=== PATIENT | male | born 1945 | race Caucasian/White ===

== ENCOUNTER 2024-08-20 12:52 | Outpatient (CLI) | payer MEDICARE, SELFPAY ==
--- NOTE | 2024-08-20 13:00 | CRLHL7_ITS ---
For Patients: As a result of the Cures Act, medical imaging exams and procedure reports are released immediately into your electronic medical record. You may view this report before your referring provider. If you have questions, please contact your health care provider. INDICATION: Altered bowel habits TECHNIQUE: Abdomen Pelvis radiograph 4 views COMPARISON: None FINDINGS: The sensitivity and specificity of the exam are moderately limited by the patient`s body habitus. Bowel: The bowel gas pattern is normal without evidence of bowel obstruction. Mild gaseous distention of the transverse colon is seen. Soft tissue: No evidence of pneumoperitoneum present. Moderate vascular calcifications are noted. There is a calcified granuloma in the left lung base. Bone: Unremarkable for age. IMPRESSION: 1. Unremarkable appearance of the visualized abdomen. Dictated by Christiano Darnell MD @ 08/20/2024 1:30:14 PM Dictated by: Christiano Darnell MD @ 08/20/2024 13:30:19 (Electronically Signed)
== END 2024-08-20 12:53 | disposition home or self-care (01) ==
LOC: RAD 13:00
PROVIDERS: Visit Provider Student in an Organized Health Care Education/Training Program
DX: R19.4 Change in bowel habit (principal)
CPT/HCPCS: 74019

== ENCOUNTER 2025-01-12 16:40 | Inpatient (IN) | payer MEDICARE, SELFPAY ==
[2025-01-12] VITALS (99 sets, daily range): BP systolic 68–136; BP diastolic 42–98; PULSE 65–144; RESP 6–36; TEMP 36.1–38.1; O2SAT 81–98; BMI 29.0; BMI 29.8
--- NOTE | 2025-01-12 16:44 | ED_ITS ---
HPI - Fever General Time Seen by Provider: 16:44 Date Seen: 01/12/25 Chief Complaint: Fever Stated Complaint: 100.5 fever, illness Time Seen by Provider: 01/12/25 16:43 Source: patient, family, RN notes reviewed and old records reviewed Mode of arrival: ambulatory Limitations: no limitations History of Present Illness HPI Narrative: 79-year-old male with history of rheumatoid arthritis on immune modulator, chronic prednisone, presents today feeling ill. History from patient and his spouse. Patient has had increased weakness and fatigue for the last couple of d ays, not wanting to get out of bed. Chills. Little bit of cough starting last night, did vomit once. Some nausea. Denies chest pain, does note some abdominal pain. Denies urinary symptoms, lower extremity swelling. No known ill contacts. Has not taken anything for symptoms today. Related Data Home Medications ?Medication ?Instructions ?Recorded ?Confirmed duloxetine 20 mg capsule,delayed 20 mg PO BID 01/12/25 01/12/25 release ezetimibe 10 mg tablet 10 mg PO DAILY 01/12/25 01/12/25 famotidine 20 mg tablet 20 mg PO BID 01/12/25 01/12/25 gabapentin 600 mg tablet 600 - 1,200 mg PO Q12H 01/12/25 01/12/25 leflunomide 20 mg tablet 20 mg PO DAILY 01/12/25 01/12/25 lidocaine-prilocaine 2.5 %-2.5 % 1 applic topical TID PRN 01/12/25 01/12/25 topical cream losartan 25 mg tablet 25 mg PO DAILY 01/12/25 01/12/25 metoprolol succinate 50 mg 25 mg PO DAILY 01/12/25 01/12/25 tablet,extended release 24 hr pantoprazole 40 mg tablet,delayed 40 mg PO DAILY 01/12/25 01/12/25 release prednisone 20 mg tablet 20 mg PO DAILY 01/12/25 01/12/25 prednisone 5 mg tablet 5 mg PO DAILY 01/12/25 01/12/25 ramelteon 8 mg tablet 8 mg PO QPM 01/12/25 01/12/25 rosuvastatin 20 mg tablet 20 mg PO QPM 01/12/25 01/12/25 tofacitinib 11 mg tablet,extended 11 mg PO DAILY 01/12/25 01/12/25 release 24 hr (Xeljanz XR) Allergies Allergy/AdvReac Type Severity Reaction Status Date / Time ampicillin Allergy Unknown Verified 01/12/25 18:55 bee venom protein (honey bee) Allergy Unknown Verified 01/12/25 18:55 PFSH PFS Medical History (Updated 01/13/25 @ 22:55 by Juan J Ramirez MD) Total bilirubin, elevated ?R17 - Unspecified jaundice (ICD-10) Peripheral neuropathy ?G62.9 - Polyneuropathy, unspecified (ICD-10) Lumbar radiculopathy ?M54.16 - Radiculopathy, lumbar region (ICD-10) Chronic pain ?G89.29 - Other chronic pain (ICD-10) Stage 3 chronic kidney disease ?N18.30 - Chronic kidney disease, stage 3 unspecified (ICD-10) Non-STEMI (non-ST elevated myocardial infarction) ?I21.4 - Non-ST elevation (NSTEMI) myocardial infarction (ICD-10) Hypertension ?I10 - Essential (primary) hypertension (ICD-10) Hyperlipidemia ?E78.5 - Hyperlipidemia, unspecified (ICD-10) Rheumatoid arthritis ?M06.9 - Rheumatoid arthritis, unspecified (ICD-10) Surgical History (Updated 01/12/25 @ 23:55 by Scot Dumont MD) History of hernia repair ?Z98.890 - Other specified postprocedural states (ICD-10) ?Z87.19 - Personal history of other diseases of the digestive system (ICD-10) History of arthrodesis ?Z98.1 - Arthrodesis status (ICD-10) History of bunionectomy ?Z98.890 - Other specified postprocedural states (ICD-10) Family History (Updated 01/12/25 @ 23:56 by Scot Dumont MD) Brother Heart disease High blood pressure Father Heart disease High blood pressure Social History (Updated 01/12/25 @ 23:56 by Scot Dumont MD) Narrative: [place] history of smoking more than 50 years ago. He does not drink alcohol having quit a couple years ago. Code status is DNR. What is your current living situation?: I presently have a place to live Problems where you live: no known problems Problems where you live details: NA In the past 12 months, utilities in danger of being shut off: no In past 12 months, lack of transportation kept you from medical appts, meetings, work, or getting things needed for daily living: no In the past 12 mos, have been you worried that your food would run out before you had money to buy more?: never true In the past 12 mos, the food you bought just didn't last and you didn't have money to buy more?: never true Highest level of school completed/degree received: high school graduate Smoking Status: Never smoker How often do you have a drink containing alcohol: never AUDIT-C Alcohol total score: 0 Non-prescribed substance use: denies use How often does anyone, including family, friends and others, physically hurt you : never How often does anyone, including family, friends and others, insult or talk down to you: never How often does anyone, including family, friends and others, threaten you with harm: never How often does anyone, including family, friends and others, scream or curse at you: never service: No Exam Narrative Exam Narrative: General: Well-developed and well-nourished, appears ill Head: Atraumatic and normocephalic Eyes: Pupils are equal reactive, extraocular motions intact, conjunctiva clear ENT: External nose and ears are normal, posterior pharynx without erythema or exudate Neck: No midline cervical tenderness, full spontaneous range of motion the neck, trachea midline, no adenopathy Heart: Regular rate and rhythm no murmurs or thrills Lungs: Tachypneic with crackles in the left base Abdomen: Soft, nontender, nondistended with active bowel sounds Musculoskeletal: No tenderness, deformity, or edema Neurologic: Awake, alert, and oriented x3, no gross focal neurologic deficits, cranial nerves intact as tested Psych: Mood and affect are appropriate Skin: No rashes Const Vital Signs, click to edit/add: Vital Signs - 24 hr 01/12/25 22:57 Blood Pressure 125/98 H Course Course ED Course: Reviewed most recent rheumatology visit from October 2024 which was follow-up for medication management, at that time on Xeljanz, prednisone, and leflunomide, creatinine in at that time 1.87 and no medication changes at that time. Most recent labs from January 05 with a white blood cell count 5.5, creatinine 1.61. Patient seen and examined, presents today with weakness and fatigue along with slight cough, nausea. Denies shortness of breath to me although spouse says that he was complaining of some shortness of breath earlier. On exam here, patient is febrile, hypotensive, oxygen saturation 82-86% on room air in oxygen was started. He is little bit tachypneic, mentating appropriately, crackles in the left lung, no abdominal tenderness. Labs and chest x-ray ordered along with IV fluid bolus given initial hypotension although this improved without intervention on arrival to the room. Anticipate admission, likely pneumonia in patient with immune suppression for medications Reevaluation(s) Time of Reevaluation #1: 17:13 Reevaluation #1: Labs ordered and independently interpreted by me with white blood cell count 13.7, left shift, lactate 2.4. Chest x-ray independently interpreted by me demonstrates bilateral infiltrates. Due to concern for sepsis with likely p ulmonary source, broad-spectrum antibiotics will be initiated with cefepime and vancomycin. Troponin was performed independently by nursing staff and was 2.1. This likely represents cardiac strain and hypoperfusion from sepsis, no EKG changes and no chest pain. This will be repeated. Would not initiate heparin at this time, patient is hypotensive and so would not initiate nitroglycerin. Time of Reevaluation #2: 17:40 Reevaluation #2: Updated patient on findings and plan, patient now complains of some left calf pain. Mild tenderness on exam, ultrasound is ordered. Also the patient is RSV positive, however clinically he is more ill be expected with RSV, COVID influenza negative. Time of Reevaluation #3: 18:20 Reevaluation #3: Went to check on patient, noted now to have a heart rate 140 appears regular monitor bed EKG ordered. Tylenol ordered and will recheck temperature as well. 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 EKG performed at 6:24 p.m. shows sinus tachycardia with first-degree AV block rate 128, diffuse ST changes, no acute elevations, QTC 455, GA 248. Compared to prior of earlier today, rate is increased and diffuse ST changes are now present. Additional Reevaluation(s): 18:58 CT PE study independently interpreted me without evidence of acute pulmonary embolism, pulmonary infiltrates consistent with prior diagnosis pneumonia. 19:23 patient recheck, continued tachycardia but patient is becoming more hypotensive with pressures 80s/40s. Patient is still mentating appropriately, we discussed diagnosis and plan. Patient is midway through 2 L fluids, additional IV fluids ordered to get his 30 milligram/kilogram sepsis bolus and will plan to initiate pressors. 19:40 Contacted [facility] for transfer, updated patient with findings and plan. 19:48 Updated spouse with findings and plan, confirmed code status of DNR/DNI with her. 20:13 Spoke with [facility] network intern, recommend stress dose steroids and adding an atypical pneumonia coverage, observe for couple hours, and if able to wean pressors, plan for admission to [facility]. If still on pressors, patient can be transferred to [facility]. 21:53 patient heart rate now in the 60s, repeat EKG done which shows normal sinus rhythm. Given abrupt change in heart rate, I did review prior EKG and rhythm strips which do appear to mostly shows sinus tachycardia but then ques tion of atrial fibrillation as well. Patient remains on pressors, these will be discontinued and the patient heart rate is improved to see if he is able to maintain pressures. EKG independently interpreted by me performed at 9:54 p.m. demonstrates sinus rhythm rate 67, no acute ST elevations or depressions, normal intervals, normal axis, QTC 454, GA 162, compared to prior of earlier today, no acute changes. 22:35 patient remains normotensive and in sinus rhythm, spoke with Dr. Dumont who agrees to admit patient to [facility]. Vital Signs Vital signs: Initial Vital Signs Temperature 100.6 F H 01/12/25 16:45 Temperature Source Axillary 01/12/25 16:45 Pulse Rate 81 01/12/25 16:45 Respiratory Rate 32 H 01/12/25 16:45 Blood Pressure 80/46 L 01/12/25 16:45 Blood Pressure Mean 57 L 01/12/25 16:45 Blood Pressure Position Sitting 01/12/25 16:45 Pulse Oximetry 86 L 01/12/25 16:45 Oxygen Delivery Method Room Air 01/12/25 16:45 Vital Signs Temperature 100.6 F H 01/12/25 16:45 Pulse Rate 81 01/12/25 16:45 Respiratory Rate 32 H 01/12/25 16:45 Blood Pressure 80/46 L 01/12/25 16:45 Pulse Oximetry 86 L 01/12/25 16:45 Oxygen Delivery Method Room Air 01/12/25 16:45 Temperature 98.1 F 01/13/25 22:39 Pulse Rate 86 01/13/25 22:39 Respiratory Rate 20 01/13/25 22:39 Blood Pressure 173/101 H 01/13/25 22:39 Pulse Oximetry 95 01/13/25 22:39 Oxygen Delivery Method Room Air 01/13/25 22:39 Oxygen Flow Rate 1 01/13/25 04:51 Medications Administered Medications: Generic Name Dose Route Start Last Admin Trade Name Freq PRN Reason Stop Dose Admin Acetaminophen 650 mg 01/12/25 23:09 01/13/25 19:52 Acetaminophen 325 Mg Tablet PO 650 mg Q4H PRN Administration Aspirin 81 mg 01/13/25 09:00 01/13/25 08:44 Aspirin 81 Mg Tab.Chew PO 81 mg DAILY ARLETTE Administration Azithromycin 500 mg 01/12/25 23:15 01/13/25 22:45 Azithromycin 250 Mg Tablet PO 500 mg Q24H ARLETTE Administration Duloxetine HCl 20 mg 01/13/25 09:00 01/13/25 20:59 Duloxetine Hcl [address] PO 20 mg BID ARLETTE Administration Ezetimibe 10 mg 01/13/25 09:00 01/13/25 08:44 Ezetimibe 10 Mg Tablet PO 10 mg DAILY ARLETTE Administration Enoxaparin Sodium 100 mg 01/13/25 11:45 01/13/25 22:46 Enoxaparin 100 Mg/Ml Inj SUBCUT 100 mg Q12H ARLETTE Administration Famotidine 20 mg 01/13/25 09:00 01/13/25 20:59 Famotidine 20 Mg Tablet PO 20 mg BID ARLETTE Administration Gabapentin 600 mg 01/13/25 09:00 01/13/25 20:59 Gabapentin 600 Mg Tablet PO 600 mg BID ARLETTE Administration Hydrocortisone Sodium Succinate 50 mg 01/12/25 20:15 01/13/25 19:53 Hydrocortisone Sod Succinate 50 Mg/Ml Inj IVP 50 mg Q6H ARLETTE Administration Ceftriaxone Sodium 2 gm/ 100 mls @ 200 mls/hr 01/13/25 01:00 01/13/25 02:59 Sodium Chloride IVPB Infused Q24H ARLETTE Infusion Melatonin 3 mg 01/12/25 23:09 01/13/25 20:59 Melatonin 3 Mg Tablet PO 3 mg HS PRN Administration Ramelteon 8 Mg 8 mg 01/13/25 21:00 01/13/25 21:00 Tablet PO Not Given HS ARLETTE Omeprazole 40 mg 01/13/25 09:00 01/13/25 08:44 [address]epraz[address] PO 40 mg DAILY ARLETTE Administration Oxycodone HCl 5 mg 01/13/25 16:52 01/13/25 20:59 Oxycodone 5 Mg Tablet PO 5 mg Q4H PRN Administration foot pain Rosuvastatin Calcium 20 mg 01/13/25 18:00 01/13/25 18:25 Rosuvastatin Calcium 10 Mg Tablet PO 20 mg QPM ARLETTE Administration Sodium Chloride 5 ml 01/13/25 09:00 01/13/25 19:56 Sodium Chloride 0.9 % (Flush) 10 Ml Syringe IVF 5 ml BID ARLETTE Administration Discontinued Medications Generic Name Dose Route Start Last Admin Trade Name Freq PRN Reason Stop Dose Admin Acetaminophen 1,000 mg 01/12/25 18:20 01/12/25 18:33 Acetaminophen 500 Mg Tablet PO 01/12/25 18:21 1,000 mg ONCE ONE Administration Aspirin 162 mg 01/12/25 23:55 01/13/25 00:07 Aspirin 81 Mg Tab.Chew PO 01/12/25 23:56 162 mg ONCE ONE Administration Sodium Chloride 1,000 mls @ 6,000 mls/hr 01/12/25 16:51 01/12/25 18:12 0.9 % Sodium Chloride 1000 Ml IV 01/12/25 17:00 Infused .Q10M ARLETTE Infusion Vancomycin/PEG/NADA/Lysine/Water 2 gm in 400 mls @ 200 mls/hr 01/12/25 17:30 01/12/25 21:22 Vancomycin 2 Gm/400 Ml IVPB 01/12/25 19:29 Infused ONCE ONE Infusion Protocol Cefepime HCl 1 gm/ Sodium 100 mls @ 200 mls/hr 01/12/25 17:33 01/12/25 18:41 Chloride IVPB 01/12/25 17:34 Infused ONCE ONE Infusion Sodium Chloride 1,000 mls @ 1,000 mls/hr 01/12/25 19:14 01/12/25 20:05 0.9 % Sodium Chloride 1000 Ml IV 01/12/25 20:13 Infused .Q1H ARLETTE Infusion Sodium Chloride 500 mls @ 1,000 mls/hr 01/12/25 19:25 01/12/25 20:26 0.9 % Sodium Chloride 500 Ml IV 01/12/25 19:54 Infused .Q30M ARLETTE Infusion Norepinephrine/Dextrose 4,000 mcg in 250 mls @ 36.401 mls/hr 01/12/25 19:30 01/12/25 21:53 Norepinephrine Infusion IV 0 mcg/kg/min CONT ARLETTE 0 mls/hr Titration Protocol 0.1 MCG/KG/MIN Sodium Chloride 1,000 mls @ 125 mls/hr 01/12/25 21:36 01/12/25 21:43 0.9 % Sodium Chloride 1000 Ml IV 125 mls/hr .Q8H ARLETTE Administration Magnesium Sulfate 2 gm in 50 mls @ 25 mls/hr 01/12/25 23:16 01/13/25 02:59 Magnesium Iv IVPB 01/13/25 01:15 Infused ONCE ONE Infusion Lactated Ringer's 1,000 mls @ 125 mls/hr 01/12/25 23:40 01/13/25 00:08 Lactated Ringers 1000 Ml IV 01/13/25 07:39 125 mls/hr .Q8H ARLETTE Administration MDM - Fever Lab Data Labs: Lab Results 01/12/25 01/12/25 01/12/25 Range/Units 16:50 16:55 17:15 WBC 13.73 H (4.50-11.00) K/uL RBC 4.22 L (4.30-5.90) m/uL Hgb 13.6 (13.5-17.5) gm/dL Hct 40.8 (37.0-53.0) % MCV 97 (80-100) fL MCH 32 (26-34) pg MCHC 33 (32-36) gm/dL RDW Coeff of Earnest 13.5 (11.5-15.5) % Plt Count 282 (140-440) K/uL Neut % (Auto) 83.4 H (42.0-72.0) % Lymph % (Auto) 9.0 L (20-44) % [place] % (Auto) 6.8 (0.0-11.0) % Eos % (Auto) 0.1 (0.0-7.0) % Baso % (Auto) 0.4 (0.0-3.0) % Neut # (Auto) 11.50 H (1.7-7.0) K/uL Lymph # (Auto) 1.20 (0.90-2.90) K/uL [place] # (Auto) 0.90 (0.00-0.90) K/UL Eos # (Auto) 0.00 (0.00-0.50) K/uL Baso # (Auto) 0.10 (0.00-0.30) K/uL Abs Immat Gran (auto) 0.00 (0.00-0.30) K/uL Imm/Tot Granulo (auto) 0.3 % Sodium 129 L (135-149) mmol/L Potassium 3.8 (3.6-5.1) mmol/L Chloride 95 L (96-114) mmol/L Carbon Dioxide 24 (20-32) mmol/L Anion Gap 10 (7-15) mEq/L BUN 20 (7-30) mg/dL Creatinine 1.5 (0.5-1.5) mg/dL Estimated Creat Clear 42.39 Estimated GFR 46 ml/min Glucose 106 (60-115) mg/dL Lactate 2.4 H (0.5-1.9) mmol/L Calcium 9.0 (8.4-10.6) mg/dL Magnesium 1.5 (1.5-2.6) mg/dL Total Bilirubin 1.8 H (0.1-1.5) mg/dL Direct Bilirubin 0.5 (0.0-0.5) mg/dL AST 58 H (12-35) U/L ALT 35 (4-50) U/L Alkaline Phosphatase 44 (40-150) U/L Troponin I 2.86 H* (0.01-0.04) ng/mL Total Protein 7.3 (6.0-8.3) g/dL Albumin 4.5 (3.3-5.0) g/dL Procalcitonin 14.40 H (<0.50) ng/mL SARS-CoV-2 (PCR) Negative SARS-CoV-2 (Negative) Influenza Type A (PCR) Negative PCR FLU A (Negative) Influenza Type B (PCR) Negative PCR FLU B (Negative) RSV (PCR) POSITIVE PCR RSV A (Negative) POC Troponin I 2.10 H (0.01-0.04) ng/ml 01/12/25 01/12/25 Range/Units 19:00 19:11 WBC (4.50-11.00) K/uL RBC (4.30-5.90) m/uL Hgb (13.5-17.5) gm/dL Hct (37.0-53.0) % MCV (80-100) fL MCH (26-34) pg MCHC (32-36) gm/dL RDW Coeff of Earnest (11.5-15.5) % Plt Count (140-440) K/uL Neut % (Auto) (42.0-72.0) % Lymph % (Auto) (20-44) % [place] % (Auto) (0.0-11.0) % Eos % (Auto) (0.0-7.0) % Baso % (Auto) (0.0-3.0) % Neut # (Auto) (1.7-7.0) K/uL Lymph # (Auto) (0.90-2.90) K/uL [place] # (Auto) (0.00-0.90) K/UL Eos # (Auto) (0.00-0.50) K/uL Baso # (Auto) (0.00-0.30) K/uL Abs Immat Gran (auto) (0.00-0.30) K/uL Imm/Tot Granulo (auto) % Sodium (135-149) mmol/L Potassium (3.6-5.1) mmol/L Chloride (96-114) mmol/L Carbon Dioxide (20-32) mmol/L Anion Gap (7-15) mEq/L BUN (7-30) mg/dL Creatinine (0.5-1.5) mg/dL Estimated Creat Clear Estimated GFR ml/min Glucose (60-115) mg/dL Lactate 2.0 H (0.5-1.9) mmol/L Calcium (8.4-10.6) mg/dL Magnesium (1.5-2.6) mg/dL Total Bilirubin (0.1-1.5) mg/dL Direct Bilirubin (0.0-0.5) mg/dL AST (12-35) U/L ALT (4-50) U/L Alkaline Phosphatase (40-150) U/L Troponin I 2.60 H* (0.01-0.04) ng/mL Total Protein (6.0-8.3) g/dL Albumin (3.3-5.0) g/dL Procalcitonin (<0.50) ng/mL SARS-CoV-2 (PCR) (Negative) Influenza Type A (PCR) (Negative) Influenza Type B (PCR) (Negative) RSV (PCR) (Negative) POC Troponin I 1.93 H (0.01-0.04) ng/ml Critical Care Time Critical Care Time Critical Care Time: Yes Attestation: The patient required my highest level preparedness to intervene emergently and I personally spent this critical care time directly and personally managing the patient. This critical care time included: Obtaining a history; Examining the patient; Pulse oximetry; Ordering and reviewing of studies; Arranging urgent treatment with development of a management plan; Evaluation of patients response to treatment; Frequent reassessment discussions with other providers. This critical care time was performed to assess and manage the high probability of imminent life-threatening deterioration that could result in multiorgan failure. It was exclusive of separate billable procedures and treating other patients and teaching time. Total Critical Care Time in Minutes: 150 Discharge Plan Discharge Clinical Impression: Long-term use of immunosuppressant medication, Sepsis, Elevated troponin, Community acquired pneumonia, Acute hypoxemic respiratory failure, Paroxysmal atrial fibrillation with rapid ventricular response Patient Disposition: [facility]
--- OUTSIDE RECORDS SUMMARY | 2025-01-12 16:47 | XMS_ITS | Clinical Summary ---
[facility] Organization [facility] Address [address], [place] [address] Care Team Providers Care Trucking Supervisor Name Role Phone Mariano Kaur DC Primary Care Provider [phone] Source Comments You are receiving this document as you are listed as the primary care provider,follow-up provider, or the patient has been referred to you for consultation.This is in compliance with the Medicare and[facility] Cent[facility]aid EHR Incentive Program,which states Providers who transition their patient to another setting of careor provider of care or refers their patient to another provider of care shouldprovide summary care record for each transition of care or referral. 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 Patient has been taking a 1/2 tab daily 6 Active pantoprazole (PROTONIX) 20 MG tablet Take 20 mg by mouth two times a day. 7 Active traMADol (ULTRAM) 50 MG tablet Take 50 mg by mouth as needed. Active benzonatate (TESSALON) 100 MG capsule Take 100 mg by mouth as needed. Active lidocaine (ASPERCREME W/LIDOCAINE) 4 % cream Apply topically once. Active ezetimibe (ZETIA) 10 MG tablet Take 10 mg by mouth daily. Active hydrOXYzine pamoate (VISTARIL) 25 MG capsuleIndicatio ns:Chronic pain in left foot Take 1-2 Capsules by mouth 4 times daily as needed. 30 Capsule 1 9 Active oxyCODONE (ROXICODONE) 5 MG immediate release tabletIndication s:Chronic pain in left foot Take 1-2 Tablets by mouth every 4 hours as needed for Pain. 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 Next refill due in February 2020. 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 MAY BE TAKEN WITH OR WITHOUT FOOD. SWALLOW TABLET WHOLE. DO NOT CRUSH, SPLIT OR CHEW. STORE AT ROOM TEM 90 Tablet 1 9 Active diclofenac (VOLTAREN) 1 % gel APPLY TOPICALLY TO AFFECTED AREAS UP TO 4 TIMES DAILY. 100 g 1 9 Active leflunomide (ARAVA) 20 MG tablet Take 1 Tablet by mouth daily. 90 Tablet 1 0 Active zolpidem (AMBIEN) 10 MG tabletIndication s:Insomnia, unspecified type TAKE ONE TABLET BY MOUTH AT BEDTIME NEEDED FOR SLEEP 30 Tablet 0 Active Active Problems Patient Care Coordination No te Formatting of this note migh t be different from the original. [facility] Care Management [facility] Disease and Case Management: Gino Toussaint identified due to RA. Working with patient towards understanding of disease progression and nutrition. My role is to be available to provide in-between visit support, reinforcement of the plan of care, additional education and resources, and assistance navigating health plan benefits. Lia Santana RN 09/14/2022, 2:33 PM Problem Noted Date Diagnosed Date Controlled substance agreement signed 06/12/2018 Overview (06/12/2018): Diagnosis: OA and RA Medication: percocet Controlled Substance Agreement reviewed and signed: yes Date agreement signed: 06/12/2018 Refill plan: 90 tablets for a one year supply Clinician: Angelina Olson MD Chronic pain in left foot 04/28/2018 Needs flu shot 07/05/2017 Chronic cough 04/04/2017 Insomnia 11/29/2016 Primary osteoarthritis involving multiple joints 10/06/2016 Dysthymia 09/29/2016 High risk medication use 09/29/2016 Avascular necrosis 09/29/2016 Rheumatoid arthritis involvi ng both feet with negative rheumatoid factor 09/27/2016 Resolved Problems Problem Noted Date Diagnosed Date Resolved Date URI (upper respiratory infection) 11/16/2016 05/17/2017 Immunizations Immunization Administration Dates Next Due Influenza IIV3 (Trivalent) F alex Spicer, 65+ Yrs (30157) 07/05/2017 Social History Tobacco Use Types Packs/Day Years Used Date Smoking Tobacco: Former Cigarettes Smokeless Tobacco: Never Alcohol Use Standard Drinks/Week Comments No 0 (1 standard drink = 0.6 oz pur e alcohol) Sex and Gender Information Value Date Recorded Sex Assigned at Not on file Legal Sex Male 5:31 AM CDT Gender Identity Not on file Sexual Orientation Not on file Last Filed Vital Signs Vital Sign Reading Time Taken Comments Blood Pressure 128/66 03/10/2019 10:39 AM CDT Pulse 56 03/10/2019 10:39 AM CDT Temperature 36.4 C (97.5 F) 11/07/2018 12:35 PM LEGAL NURSE CONSULTANT Respiratory Rate 16 11/07/2018 12:35 PM LEGAL NURSE CONSULTANT Oxygen Saturation 95% 11/07/2018 12:35 PM LEGAL NURSE CONSULTANT Inhaled Oxygen Concentration - - Weight 108.9 kg (240 lb) 01/12/2021 3:20 PM CDT Height 182.9 cm (6') 01/12/2021 3:20 PM CDT Body Mass Index 32.55 01/12/2021 3:20 PM CDT Plan of Treatment Health Maintenance Due Date Last Done Comments RSV Vaccine (1 - 1-dose 75+ series) 2018 COVID-19 Vaccine (4 - 2023- season) 2024 05/15/2021, 11/25/2020, 11/04/2020 Influenza Vaccine (#1) 2024 , 07/08/2020, 07/06/2019, Additional history exists Medicare Annual Wellness Visit 09/16/2024 DTaP/Tdap/Td Vaccine (4 - Tdap) 10/22/2029 10/22/2019, 09/16/2009, 01/25/2009 HepA Vaccine Aged Out 08/10/2013, 01/14, 01/26/2013 No longer eligible based on patient's age to complete this topic Pneumococcal Vaccine 50+ Yrs Completed , 06/13/2010, 09/16/2009 Zoster/Shingles Vaccine Completed 06/07/20, 03/06/2019, 09/16/2010, Additional history exists HepB Vaccine Aged Out No longer eligi ble based on patient's age to complete this topic Hib Vaccine Aged Out No longer eligi ble based on patient's age to complete this topic IPV (Polio) Vaccine Aged Out No longe r eligible based on patient's age to complete this topic MCV4 Vaccine Aged Out No longer eligi ble based on patient's age to complete this topic Meningococcal B Vaccine Aged Out No l onger eligible based on patient's age to complete this topic Medical Devices Implanted Type Area Supervisor Data Processing Device Identifier Shelf Expiration Date Model / Serial / Lot Scr [employer] [facility] 2.0x14 - [id number] Implanted:Qty: 2 on 11/07/2018 [facility]: [employer] [id number] / 0 / 0 Insurance MEDICARE ADVANTAGE MEDICARE ADVANTAGE Care Teams Trucking Supervisor Relationship Specialty Start Date End Date Mariano Kaur DC [address] [place] [address] PCP - General Chiropractic 08/07/16
--- OUTSIDE RECORDS SUMMARY | 2025-01-12 16:47 | XMS_ITS | Clinical Summary ---
Author Organization [facility] Address [address] [address] Phone Care Team Providers Care Cardiac Care Unit Nurse Name Role Phone Unavailable Primary Care Provider Unavailabl e Allergies Active Allergy Reactions Criticality Noted Date Comments Gramineae Pollens Anaphylaxis High 04/24/2023 Bent grass pollen Amoxicillin Nausea Only Low 04/24/2023 And vomiting Bee Venom Swelling Medium 04/24/2023 Medications albuterol HFA (Proair HFA, Ventolin HFA) 108 (90 Base) MCG/ACT inhalation aerosol Inhale 2 Puffs into the lungs every six hours as needed. 2 Active Cetirizine HCl 10 MG capsule Take 10 mg by mouth one time a day. Active diclofenac (Voltaren) 1 % Gel Apply 1 g topically one time a day. 9 Active DULoxetine (Cymbalta) 20 MG delayed release capsule Take 20 mg by mouth two times a day. 9 Active ezetimibe (Zetia) 10 MG tablet Take 1 Tablet by mouth one time a day. 2 Active gabapentin (Neurontin) 600 MG tablet Take 600 mg by mouth three times a day. 9 Active leflunomide (Arava) 20 MG tablet Take 20 mg by mouth one time a day. 0 Active Melatonin 10 MG Tablet Take 10 mg by mouth at bedtime. Active metoprolol succinate (Toprol-XL) 50 MG 24 hour extended-relea se tablet Take 50 mg by mouth one time a day. 2 Active pantoprazole (Protonix) 40 MG delayed-releas e tablet Take 40 mg by mouth two times a day. 2 Active rosuvastatin (Crestor) 20 MG tablet Take 20 mg by mouth at bedtime. 2 Active Tofacitinib Citrate ER (Xeljanz XR) 11 MG Tablet Extended Release 24 Hour Take 1 Tablet by mouth one time a day. 9 Active losartan (Cozaar) 50 MG tablet Take 50 mg by mouth one time a day. Active aspirin EC 81 MG tablet Take 1 Tablet by mouth one time a day. 3 Active senna-docusate (Senokot-S) 8.6-50 MG oral tablet Take 2 Tablets by mouth two times a day. 30 Tablet 1 3 Active oxyCODONE-acet aminophen (Percocet) 5-325 MG oral tablet Take 1-2 Tablets by mouth every four hours as needed for Pain. Limit acetaminophen to 4000 mg per day from all sources. 40 Tablet 3 Active Active Problems Problem Noted Date Diagnosed Date Cervical radiculopathy 04/30/2023 CAD (coronary artery disease) 04/30/2023 CKD (chronic kidney disease) stage 3, GFR 30-59 ml/min 03/13/2019 04/30/2023 Immunosuppressed status 09/25/2018 04/30/20 23 RA (rheumatoid arthritis) 06/03/20152022 Hypertension goal BP (blood pressure) < 140/90 0 12/18/2012 04/30/2023 Hyperlipidemia LDL goal <130 02/27/2012 Surgical History Surgery Date Site/Laterality Comments ANKLE SURGERY Right APPENDECTOMY ANKLE ARTHROSCOPY/SURGERY Left CORRECT BUNION,METATARSAL OSTEOTOMY CARDIAC CATHETERIZATION CARDIAC CATHETERIZATION UPPER GASTROINTESTINAL ENDOSCOPY UMBILICAL HERNIA REPAIR CORRECT BUNION,METATARSAL OSTEOTOMY LAMINOPLASTY 04/30/2023 Left Procedure: Left cervical seven to thoracic one foraminotomy with intra-op nerve monitoring; Surgeon: Chin Valdez MD; Location: [facility] OR Medical History Medical History Date Comments Non-ST elevation (NSTEMI) my ocardial infarction (HCC) Flash pulmonary edema (HCC) Hypoxia Altered gait Hypertensive emergency Ulnar neuropathy of left upper extremity CKD (chronic kidney disease) stage 3, GFR 30-59 ml/min (HCC) Immunosuppressed status (HCC) Other chronic pain LLQ abdominal pain Controlled substance agreement signed OA (osteoarthritis) Melanotic stools Chronic cough Insomnia Dysthymic disorder Peripheral polyneuropathy Inflammatory arthritis rheumatoi d arthritis-per patient Pain, chronic Family History Medical History Relation Comments Cardiovascular Disease Father Cancer Mother Relation Status Comments Father Mother Social History Tobacco Use Types Packs/Day Years Used Date Smoking Tobacco: Never Smokeless Tobacco: Never Tobacco Cessation:Counseling Given: Not Answered Alcohol Use Standard Drinks/Week Comments Not Currently 0 (1 standard drink = 0.6 oz pur e alcohol) IP Custom IPV Answer Date Recorded Do you feel UNSAFE in any of your personal relationships with your family members or any other acquaintances? No 2022 Sex and Gender Information Value Date Recorded Sex Assigned at Not on file Legal Sex Male 1:21 PM CDT Gender Identity Not on file Sexual Orientation Not on file Obstetrics History Last Filed Vital Signs Vital Sign Reading Time Taken Comments Blood Pressure 126/55 05/01/2023 9:26 AM CDT Pulse 58 05/01/2023 9:26 AM CDT Temperature 36.7 C (98.1 F) 05/01/2023 9:26 AM CDT Respiratory Rate 16 05/01/2023 9:26 AM CDT Oxygen Saturation 92% 05/01/2023 9:26 AM CDT Inhaled Oxygen Concentration - - Weight 105.6 kg (232 lb 12.9 oz) 04/30/2023 8:33 AM CDT Height 184.2 cm (6' 0.5) 04/24/2023 1:39 PM CDT Body Mass Index 31.14 04/24/2023 1:39 PM CDT Plan of Treatment Health Maintenance Due Date Last Done Comments COVID-19 Vaccine (#1) 1950 PERTUSSIS (Standing Order) 1962 Pneumococcal Vaccine: 50+ yr s (Standing Order) (1 of 2 - PCV) 1962 Shingrix (Zoster recombinant ) vaccine (Standing Order) (1 of 2) 1962 TETANUS (Standing Order) 1962 RSV Vaccination (60+ yrs) (Abrysvo/Arexvy) (1 - 1-dose 75+ series) 2018 Influenza Vaccine Seasonal (Standing Order) (#1) 2024 HPV Vaccine (Standing Order) Aged Out No longer eligible based on patient's age to complete this topic Hepatitis B Vaccine (Standin g Order) Aged Out No longer eligible b ased on patient's age to complete this topic Insurance [employer] MEDICARE ADVANTAGE Advance Directives For more information, please contact: [phone] * Full Code (Latest Code Status on File) Date Activated Date Inactivated Comments 04/30/2023 7:53 AM 05/01/2023 3:51 PM
--- OUTSIDE RECORDS SUMMARY | 2025-01-12 16:47 | XMS_ITS | Clinical Summary ---
Author Organization [facility] Address [address] [place] [id number] Care Team Providers Care Relationship Specialist Name Role Phone Mariano Abdi Primary Care Provider Apryl vailable Allergies Active Allergy Reactions Criticality Noted Date Comments Amoxicillin-Pot Clavulanate Nausea And Vomiting 10/07/2018 Venom-Honey Bee Edema 10/07/2018 Medications Cetirizine (ZYRTEC) 10 mg cap Take 10 mg by mouth once daily if needed. Active gabapentin (NEURONTIN) 600 mg tablet Take 600 mg by mouth 3 times daily. Active leflunomide (ARAVA) 20 mg tablet Take 20 mg by mouth once daily. Active losartan (COZAAR) 50 mg tablet Take 50 mg by mouth once daily. Active pantoprazole (PROTONIX) 20 mg tablet Take 20 mg by mouth 2 times daily before meals. Active tofacitinib (XELJANZ XR) 11 mg Tb24 Take 11 mg by mouth before bedtime. Active zolpidem (AMBIEN) 5 mg tablet Take 5 mg by mouth at bedtime if needed for Sleep. Active benzonatate (TESSALON PERLES) 100 mg capsule Take 100 mg by mouth 3 times daily if needed for Cough. Active ezetimibe/simva statin (VYTORIN 10-40 ORAL) Take by mouth. Active Social History Tobacco Use Types Packs/Day Years Used Date Smoking Tobacco: Former Cigarettes Q uit: 09/16/1984 Smokeless Tobacco: Never Alcohol Use Standard Drinks/Week Comments No 0 (1 standard drink = 0.6 oz pur e alcohol) Sex and Gender Information Value Date Recorded Sex Assigned at Not on file Legal Sex Male 5:24 AM GOVERNMENT EMPLOYEE Gender Identity Not on file Sexual Orientation Not on file Obstetrics History Last Filed Vital Signs Vital Sign Reading Time Taken Comments Blood Pressure 116/71 04/01/2019 9:25 AM CDT Pulse 46 04/01/2019 9:40 AM CDT Temperature 36.4 C (97.6 F) 04/01/2019 8:55 AM CDT Simultaneous filing. User may not have seen previous data. Respiratory Rate 16 04/01/2019 9:25 AM CDT Oxygen Saturation 100% 04/01/2019 9:4 0 AM CDT Inhaled Oxygen Concentration - - Weight 102.7 kg (226 lb 5 oz) 10/07/2018 1:23 PM GOVERNMENT EMPLOYEE Height 182.9 cm (6') 10/07/2018 1:23 PM GOVERNMENT EMPLOYEE Body Mass Index 30.69 10/07/2018 1:23 PM GOVERNMENT EMPLOYEE Plan of Treatment Health Maintenance Due Date Last Done Comments Tdap 1954 Depression screening for age 12+ 1955 BMI (ht and wt on same day) for age 18+ 1961 Tetanus booster 1963 Pneumococcal series for age 50+ (1 of 1 - PCV) 1993 Zoster (shingles) series for age 50+ (1 of 2) 1993 RSV vaccine for adults or (1 - 1-dose 75+ series) 2018 COVID-19 vaccine series ( season) 2024 07/02/2023, 01/23/2022, 05/15/2021, Additional history exists Influenza Vaccine (Season Ended) 2025 Insurance MEDICARE PART B HB ONLY MEDICARE PART A HB ONLY REHAN RODRIGUEZ [id number] Advance Directives * Full Code (Latest Code Status on File) Date Activated Date Inactivated Comments 04/01/2019 6:58 AM 04/01/2019 11:56 AM * Full Code Date Activated Date Inactivated Comments 10/08/2018 8:06 AM 10/08/2018 1:36 PM Care Teams Relationship Specialist Relationship Specialty Start Date End Date Mariano Abdi PCP - General Family Practice 10/03/18
--- NOTE | 2025-01-12 16:51 | CRLHL7_ITS ---
For Patients: As a result of the Cures Act, medical imaging exams and procedure reports are released immediately into your electronic medical record. You may view this report before your referring provider. If you have questions, please contact your health care provider. INDICATION: Fever, hypoxia TECHNIQUE: Chest radiograph 1 view COMPARISON: None FINDINGS: The sensitivity and specificity of the exam are severely limited by the patient`s body habitus. Mediastinum: The mediastinum is normal in appearance. The heart silhouette is normal in size and morphology. Lung: Mild patchy airspace opacities are present in the left midlung zone and both lung bases. No sign of pleural effusion seen. No pneumothorax is identified. Bone and Soft tissue: Unremarkable for age. IMPRESSION: 1. Mild patchy airspace opacities are present in the left midlung zone and both lung bases. These findings can be seen with atelectasis and/or pneumonia. Dictated by Christiano Darnell MD @ 01/12/2025 5:41:20 PM Dictated by: Christiano Darnell MD @ 01/12/2025 17:41:22 (Electronically Signed)
[2025-01-12 17:07] LABS: Lactate* 2.4 mmol/L (0.5-1.9)
[2025-01-12 17:08] LABS: Basophils Percent Auto 0.4 % (0.0-3.0); Eosinophils Percent Auto 0.1 % (0.0-7.0); Hematocrit 40.8 % (37.0-53.0); Hemoglobin* 13.6 gm/dL (13.5-17.5); Immature Granulocytes Pct Auto 0.3 %; Mean Corpuscular HGB Conc 33 gm/dL (32-36); Mean Corpuscular Hemoglobin 32 pg (26-34); Mean Corpuscular Volume 97 fL (80-100); Monocytes Percent Auto 6.8 % (0.0-11.0); Neutrophils Percent Auto 83.4 % (42.0-72.0); Platelet Count* 282 K/uL (140-440); RDW Coefficient of Variation % 13.5 % (11.5-15.5); Red Blood Count 4.22 m/uL (4.30-5.90); White Blood Count* 13.73 K/uL (4.50-11.00)
[2025-01-12 17:12] LABS: Slide Review Reflex No
[2025-01-12] MEDS: 0.9 % SODIUM CHLORIDE 1000 ml 1,000 ML 6000 ML IV (17:27)
[2025-01-12 17:28] LABS: Albumin* 4.5 g/dL (3.3-5.0); Chloride* 95 mmol/L (96-114); Potassium* 3.8 mmol/L (3.6-5.1); Sodium* 129 mmol/L (135-149)
[2025-01-12 17:31] LABS: Alanine Aminotransferase* 35 U/L (4-50); Alkaline Phosphatase* 44 U/L (40-150); Anion Gap 10 mEq/L (7-15); Aspartate Amino Transferase* 58 U/L (12-35); Bilirubin Direct* 0.5 mg/dL (0.0-0.5); Bilirubin Total* 1.8 mg/dL (0.1-1.5); Blood Urea Nitrogen* 20 mg/dL (7-30); Carbon Dioxide* 24 mmol/L (20-32); Creatinine* 1.5 mg/dL (0.5-1.5); Est. Creatinine Clearance* 42.39; Estimated Glomerular Filt Rate 46 ml/min; Glucose* 106 mg/dL (60-115); Total Protein* 7.3 g/dL (6.0-8.3)
[2025-01-12 17:32] LABS: Magnesium* 1.5 mg/dL (1.5-2.6)
[2025-01-12 17:39] LABS: PCR FLU A Negative PCR FLU A (Negative); PCR FLU B Negative PCR FLU B (Negative); PCR RSV POSITIVE PCR RSV (Negative); SARS PCR* Negative SARS-CoV-2 (Negative)
--- NOTE | 2025-01-12 17:41 | CRLHL7_ITS ---
For Patients: As a result of the Century Cures Act, medical imaging exams and procedure reports are released immediately into your electronic medical record. You may view this report before your referring provider. If you have questions, please contact your health care provider. INDICATION: Leg pain and swelling. TECHNIQUE: Ultrasound venous duplex lower left extremity. Compression venous exam was performed using summers-scale, color Doppler, and spectral Doppler analysis. COMPARISON: None. FINDINGS: Deep veins: Sonographic imaging demonstrates the left common femoral, deep femoral, superficial femoral, popliteal, posterior tibial and the contralateral right common femoral veins to be fully compressible with normal color Doppler blood flow. Superficial veins: Greater saphenous vein is fully compressible. Left popliteal fossa complex cystic lesion 4.1 x 0.3 x 2.0 centimeters. IMPRESSION: No DVT in the left lower extremity. Left popliteal fossa cyst. Dictated by Moni Purcell MD @ 01/12/2025 6:58:06 PM (Electronically Signed)
--- OUTSIDE RECORDS SUMMARY | 2025-01-12 18:01 | XMS_ITS | Encounter Summary ---
Author Organization [facility] Address [address] [place] [address] Care Team Providers Care Detective Bureau Chief Name Role Phone Lois Cox RESIDENT ADVISOR LINEN MANAGER Primary Care Provider + Lois Cox APRN [facility] Unavailable [phone] Dillon Barksdale MD Unavailable Unavailable Farhan Hinojosa MD Unavailable Dar Brady MD Unavailable Unava ilable Braxton Tonya E RESIDENT ADVISOR [facility] Unavailable [phone] Lia Amaya [facility] Unavailable [phone] Lia Amaya [facility] Unavailable [phone] Chalo Gillespie MD Unavailable Lyle Leung MD Unavailable Encounter Details Date Type Department Care Team (Late st Contact Info) Description 11/30/2020 Documentation Only INTERFACED REPORT Unknown, Provider Social History Tobacco Use Types Packs/Day Years Used Date Smoking Tobacco: Former Cigarettes 0.5 10 0 09/16/1974 - 09/16/1984 Smokeless Tobacco: Never Alcohol Use Standard Drinks/Week Comments Yes 0 (1 standard drink = 0.6 oz pur e alcohol) occasionally Social Connection and Isolation Panel [NHANES] A nswer Date Recorded Frequency of Communication with Friends and Fami ly Not on file 09/02/2024 How often do you get together with friends or re latives? Once a week 09/02/2024 Attends Anabaptist Services Not on file 09/02 Active Member of Clubs or Organizations Not on f ile 09/02/2024 Attends Club or Organization Meetings Not on pascale e 09/02/2024 Marital Status Not on file 09/02/2024 PHQ-2 Answer Date Recorded PHQ-2 Score 0 09/02/2024 [facility] - Occupational Stress Questionnaire Answer Date Recorded Do you feel stress - tense, restless, nervous, or anxious, or unable to sleep at night because your mind is troubled all the time - these days? Not at all 09/02/2024 Exercise Vital Sign Answer Date Recorde d On average, how many days pe r week do you engage in moderate to strenuous exercise (like a brisk walk)? 5 days 09/02/2024 On average, how many minutes do you engage in exercise at this level? 150+ min 09/02/2024 Adolescent Education Answer Date Record ed Getting School Help Needed Not on file 06/07 Food Insecurity Answer Date Recorded Within the past 12 months, d id you worry that your food would run out before you got money to buy more? No 09/02/2024 Within the past 12 months, d id the food you bought just not last and you didn t have money to get more? No 09/02/2024 Housing Stability Answer Date Recorded Do you have housing? (Annamaria burgess is defined as stable permanent housing and does not include staying outside in a car, in a tent, in an abandoned building, in an overnight mcfp, or couch-surfing.) Yes 09/02/2024 Are you worried about losing your housing? No 09/02/2024 Financial Resource Strain Answer Date R ecorded Within the past 12 months, h ave you or your family members you live with been unable to get utilities (heat, electricity) when it was really needed? No 09/02/2024 Transportation Needs Answer Date Record ed Within the past 12 months, h as lack of transportation kept you from medical appointments, getting your medicines, non-medical meetings or appointments, work, or from getting things that you need? No 09/02/2024 Interpersonal Safety Answer Date Record ed Do you feel physically and e motionally safe where you currently live? Yes 09/02/2024 Within the past 12 months, h ave you been hit, slapped, kicked or otherwise physically hurt by someone? No 09/02/2024 Within the past 12 months, h ave you been humiliated or emotionally abused in other ways by your partner or ex-partner? No 09/02/2024 Sex and Gender Information Value Date Recorded Sex Assigned at Male 10/16/2023 11:10 AM SYSTEM VALIDATION ENGINEER Legal Sex Male 3:09 AM SYSTEM VALIDATION ENGINEER Gender Identity Male 11/16/2020 12:30 PM SYSTEM VALIDATION ENGINEER Sexual Orientation Straight 11/16/2020 12 :30 PM SYSTEM VALIDATION ENGINEER COVID-19 Exposure Response Date Recorded In the last 10 days, have yo u been in contact with someone who was confirmed or suspected to have Coronavirus/COVID-19? No / Unsure 06/17/2023 10:27 AM CDT documented as of this encounter Plan of Treatment Upcoming Encounters Date Type Department Care Team (Late st Contact Info) Description 07/06/2025 10:30 AM CDT Lab [facility] Laboratory [address] [place] [phone] 07/13/2025 11:00 AM CDT Office Visit [address] [address] Lois Cox APRN LINEN MANAGER [address] [place] [address] Lyle Leung MD [address] [place], [place] [address] documented as of this encounter Visit Diagnoses Not on filedocumented in this encounter Additional Health Concerns Infection Onset Date Last Indicated Resolved Time Rule Out COVID-19 11/12/2021 11/12/2021 11/12/2021 10:12 PM SYSTEM VALIDATION ENGINEER Rule Out COVID-19 01/12/2022 01/12/2022 01/13/2022 2:57 PM CDT COVID-19 01/12/2022 01/12/2022 02/02/2022 11:3 9 PM CDT Rule Out COVID-19 04/10/2022 04/10/2022 04/11/2022 11:19 AM CDT Rule Out COVID-19 07/24/2022 07/24/2022 07/24/2022 11:03 AM SYSTEM VALIDATION ENGINEER Rule Out COVID-19 08/19/2022 08/19/2022 08/19/2022 12:24 PM SYSTEM VALIDATION ENGINEER Influenza 08/19/2022 08/19/2022 08/26/2022 11:4 1 PM SYSTEM VALIDATION ENGINEER Rule Out C-difficile 11/22/2022 11/22/2022 023 8:51 PM SYSTEM VALIDATION ENGINEER Rule Out C-difficile 10/02/2023 10/02/2023 024 9:40 AM SYSTEM VALIDATION ENGINEER Assessment Noted Time PHQ-9 Depression Total Score: 0 11/19/19 8:20 AM SYSTEM VALIDATION ENGINEER documented as of this encounter Care Teams Detective Bureau Chief Relationship Specialty Start Date End Date Lois Cox APRN LINEN MANAGER [address] [place] [address] PCP - General Nurse Practitioner - Family 12/01/19 Lois Cox APRN LINEN MANAGER [address] [address] Assigned PCP 11/27/20 Dillon Barksdale MD Assigned Heart and Vascular Provider 02/19/21 03/23/22 [place] [address] [place] [place] [address] Assigned Musculoskeletal Provider 03/10/22 09/06/23 Dar Brady MD Assigned Heart and Vascular Provider 03/24/22 06/12/22 Tonya Limon APRN LINEN MANAGER [address] [place] [address] Assigned Heart and Vascular Provider 06/13/22 06/21/23 Lia Amaya [facility] [address] [place] [address] Pharmacist Pharmacist 11/19/22 11/26/23 Lia Amaya [facility] [address] [place] [address] Assigned MTM Pharmacist 11/24/22 Chalo Gillespie MD [address] [facility] [address] [place] [address] Assigned Heart and Vascular Provider 06/22/23 Lyle Leung MD [address] [place] [address] Nephrology 11/18/24 documented as of this encounter
--- OUTSIDE RECORDS SUMMARY | 2025-01-12 18:01 | XMS_ITS | Encounter Summary ---
Author Organization [facility] Address [address] [place] [address] Care Team Providers Care Furniture Sales Consultant Name Role Phone Lois Cox STRUCTURAL STEEL WORKER APPRENTICE SECRETARY ADMINISTRATIVE ASSISTANT Primary Care Provider + Lois Cox APRN SECRETARY ADMINISTRATIVE ASSISTANT Unavailable [phone] Farhan Hinojosa MD Unavailable Braxton Tonya Rose STRUCTURAL STEEL WORKER APPRENTICE SECRETARY ADMINISTRATIVE ASSISTANT Unavailable [phone] Lia Amaya [facility] Unavailable [phone] Lia Amaya [facility] Unavailable [phone] Chalo Gillespie MD Unavailable Lyle Leung MD Unavailable Encounter Details Date Type Department Care Team (Late st Contact Info) Description 11/19/2022 [facility] Medical Advice [facility] [address] [facility] 3rd [place] [address] Lia Amaya, [facility] [address] [place] [address] Social History Tobacco Use Types Packs/Day Years Used Date Smoking Tobacco: Former Cigarettes 0.5 10 0 09/16/1974 - 09/16/1984 Passive Smoke Exposure: Never Smokeless Tobacco: Never Alcohol Use Standard Drinks/Week Comments Yes 0 (1 standard drink = 0.6 oz pur e alcohol) occasionally PHQ-2 Answer Date Recorded PHQ-2 Score 0 11/22/2022 Sex and Gender Information Value Date Recorded Sex Assigned at Male 10/16/2023 11:10 AM CYTOPATHOLOGIST Legal Sex Male 3:09 AM CYTOPATHOLOGIST Gender Identity Male 11/16/2020 12:30 PM CYTOPATHOLOGIST Sexual Orientation Straight 11/16/2020 12 :30 PM CYTOPATHOLOGIST COVID-19 Exposure Response Date Recorded In the last 10 days, have yo u been in contact with someone who was confirmed or suspected to have Coronavirus/COVID-19? No / Unsure 11/22/2022 4:37 PM CYTOPATHOLOGIST documented as of this encounter Plan of Treatment Upcoming Encounters Date Type Department Care Team (Late st Contact Info) Description 07/06/2025 10:30 AM CDT Lab [facility] Laboratory [address] [place] [address] 07/13/2025 11:00 AM CDT Office Visit [facility] [address] [facility] [address] [place] [phone] Lois Cox APRN SECRETARY ADMINISTRATIVE ASSISTANT [address] [address] Lyle Leung MD 500 [place] [address] documented as of this encounter Visit Diagnoses Not on filedocumented in this encounter Additional Health Concerns Infection Onset Date Last Indicated Resolved Time Rule Out C-difficile 11/22/2022 11/22/2022 023 8:51 PM CYTOPATHOLOGIST Rule Out C-difficile 10/02/2023 10/02/2023 024 9:40 AM CYTOPATHOLOGIST Assessment Noted Time PHQ-9 Depression Total Score: 8 08/02/20 22 12:59 PM CYTOPATHOLOGIST documented as of this encounter Care Teams Furniture Sales Consultant Relationship Specialty Start Date End Date Lois Cox APRN SECRETARY ADMINISTRATIVE ASSISTANT [address] [address] PCP - General Nurse Practitioner - Family 12/01/19 Lois Cox APRN SECRETARY ADMINISTRATIVE ASSISTANT [address] [place] [address] Assigned PCP 11/27/20 [place] [address] [place] [address] [place] [address] Assigned Musculoskeletal Provider 03/10/22 09/06/23 Tonya Limon APRN SECRETARY ADMINISTRATIVE ASSISTANT [address] [place] [id number] Assigned Heart and Vascular Provider 06/13/22 06/21/23 Lia Amaya [facility] [address] [place] [address] Pharmacist Pharmacist 11/19/22 11/26/23 Lia Amaya [facility] [address] [place] [address] Assigned MTM Pharmacist 11/24/22 Chalo Gillespie MD [address] [place] [address] Assigned Heart and Vascular Provider 06/22/23 Lyle Leung MD [address] [place] [address] Nephrology 11/18/24 documented as of this encounter
--- OUTSIDE RECORDS SUMMARY | 2025-01-12 18:02 | XMS_ITS | Encounter Summary ---
Author Organization [facility] Address [address] [place] [address] Care Team Providers Care Enrollment Management Director Name Role Phone Lois Cox APRN RADIO FREQUENCY ENGINEER Primary Care Provider + Lois Cox APRN RADIO FREQUENCY ENGINEER Unavailable [phone] Chalo Gillespie MD Unavailable Lyle Leung MD Unavailable Encounter Details Date Type Department Care Team (Late st Contact Info) Description 12/24/2024 10:30 AM CDT [facility] [address] [place] [phone] Inflammatory polyarthropathy (H) Social History Tobacco Use Types Packs/Day Years Used Date Smoking Tobacco: Former Cigarettes 0.5 10 0 09/16/1974 - 09/16/1984 Passive Smoke Exposure: Never Smokeless Tobacco: Never Alcohol Use Standard Drinks/Week Comments Not Currently 0 (1 standard drink = 0.6 oz pur e alcohol) Social Connection and Isolation Panel [NHANES] A nswer Date Recorded Frequency of Communication with Friends and Fami ly Not on file 09/02/2024 How often do you get together with friends or re latives? Once a week 09/02/2024 Attends Mandaen Services Not on file 09/02 Active Member of Clubs or Organizations Not on f ile 09/02/2024 Attends Club or Organization Meetings Not on pascale e 09/02/2024 Marital Status Not on file 09/02/2024 PHQ-2 Answer Date Recorded PHQ-2 Score 0 09/02/2024 [facility] [place] [facility] - Occupational Stress Questionnaire Answer Date Recorded [...] in an abandoned building, in an overnight nursing home, or couch-surfing.) Yes 09/02/2024 Are you worried [...] Sex Assigned at Male 10/16/2023 11:10 AM NET PROGRAMMER ANALYST Legal Sex Male 3:09 AM NET PROGRAMMER ANALYST Gender Identity Male 11/16/2020 12:30 PM NET PROGRAMMER ANALYST Sexual Orientation Straight 11/16/2020 12 :30 PM NET PROGRAMMER ANALYST documented as of this encounter Plan of Treatment Upcoming Encounters Date Type Department Care Team (Late st Contact Info) Description 07/06/2025 10:30 AM CDT Lab [facility] [address] [place] [phone] 07/13/2025 11:00 AM CDT Office Visit [facility] [address] [facility] [address] [place] [address] Lois Cox APRN RADIO FREQUENCY ENGINEER [address] [place] [address] Lyle Leung MD [address] [place], [place] [address] documented as of this encounter Procedures Procedure Name Priority Date/Time Associated Diagnosis Comments CBC WITH PLATELETS AND DIFFERENTIAL Routine 12/24/2024 10:18 AM CDT Inflammatory polyarthropathy (H) CBC WITH PLATELETS & DIFFERENTIAL Routine 12/24/2024 10:18 AM CDT Inflammatory polyarthropathy (H) AST Routine 12/24/2024 10:18 AM CDT Inflammatory polyarthropathy (H) ALT Routine 12/24/2024 10:18 AM CDT Inflammatory polyarthropathy (H) documented in this encounter Results * (ABNORMAL) CBC with platelets and differential (12/24/2024 10:18 AM CDT) WBC Count 4.4 4.0 - 11.0 10e3/uL 12/24/2024 10:26 AM CDT [facility] RBC Count 3.54(L) 4.40 - 5.90 10e6/uL 12/24/2024 10:26 AM CDT [facility] Hemoglobin 11.5(L) 13.3 - 17.7 g/dL 12/24/2024 10:26 AM CDT [facility] Hematocrit 35.1(L) 40.0 - 53.0 % 12/24/2024 10:26 AM CDT [facility] MCV 99 78 - 100 fL 12/24/2024 10:26 AM CDT [facility] MCH 32.5 26.5 - 33.0 pg 12/24/2024 10:26 AM CDT [facility] MCHC 32.8 31.5 - 36.5 g/dL 12/24/2024 10:26 AM CDT [facility] RDW 13.4 10.0 - 15.0 % 12/24/2024 10:26 AM CDT [facility] Platelet Count 266 150 - 450 10e3/uL 12/24/2024 10:26 AM CDT [facility] % Neutrophils 67 % 12/24/2024 10:26 AM CDT [facility] % Lymphocytes 22 % 12/24/2024 10:26 AM CDT [facility] % Monocytes 10 % 12/24/2024 10:26 AM CDT [facility] % Eosinophils 1 % 12/24/2024 10:26 AM CDT [facility] % Basophils 1 % 12/24/2024 10:26 AM CDT [facility] % Immature Granulocytes 0 % 12/24/2024 10:26 AM CDT [facility] Absolute Neutrophils 2.9 1.6 - 8.3 10e3/uL 12/24/2024 10:26 AM CDT [facility] Absolute Lymphocytes 1.0 0.8 - 5.3 10e3/uL 12/24/2024 10:26 AM CDT [facility] Absolute Monocytes 0.4 0.0 - 1.3 10e3/uL 12/24/2024 10:26 AM CDT [facility] Absolute Eosinophils 0.0 0.0 - 0.7 10e3/uL 12/24/2024 10:26 AM CDT [facility] Absolute Basophils 0.0 0.0 - 0.2 10e3/uL 12/24/2024 10:26 AM CDT [facility] Absolute Immature Granulocytes 0.0 <=0.4 10e3/uL 12/24/2024 10:26 AM CDT [facility] Blood BLOOD SPECIMEN / Unknown Venipuncture / Unknown 12/24/2024 10:18 AM CDT 12/24/2024 10:18 AM CDT Hoda Hassan APRN RADIO FREQUENCY ENGINEER LAB - BLOOD ORDERABLES Renee l Result LABORATORY [facility] [address] [facility] (no room number, 1st floor of clinic) [place] [address] * ALT (12/24/2024 10:18 AM CDT) ALT 22 0 - 70 U/L 12/24/2024 9:2 1 PM CDT [facility] Blood BLOOD SPECIMEN / Unknown Venipuncture / Unknown 12/24/2024 10:18 AM CDT 12/24/2024 10:18 AM CDT us Hoda Hassan APRN RADIO FREQUENCY ENGINEER LAB - BLOOD ORDERABLES Renee l Result LABORATORY [facility] [place] [facility] [address] [facility], [address] * AST (12/24/2024 10:18 AM CDT) AST 39 0 - 45 U/L 12/24/2024 9:2 1 PM CDT [facility] Blood BLOOD SPECIMEN / Unknown Venipuncture / Unknown 12/24/2024 10:18 AM CDT 12/24/2024 10:18 AM CDT us Hoda Hassan APRN RADIO FREQUENCY ENGINEER LAB - BLOOD ORDERABLES Renee l Result U LABORATORY [facility] [place] [address] [facility] documented in this encounter Visit Diagnoses Diagnosis Inflammatory polyarthropathy (H) Unspecified inflammatory polyarthropathy documented in this encounter Additional Health Concerns Assessment Noted Time PHQ-9 Depression Total Score: 0 09/02/20 24 11:14 AM NET PROGRAMMER ANALYST documented as of this encounter Care Teams Enrollment Management Director Relationship Specialty Start Date End Date Lois Cox APRN RADIO FREQUENCY ENGINEER [address] [place] [address] PCP - General Nurse Practitioner - Family 12/01/19 Lois Cox APRN RADIO FREQUENCY ENGINEER [address] [place] [address] Assigned PCP 11/27/20 Chalo Gillespie MD [address] [facility] [address] [place] [address] Assigned Heart and Vascular Provider 06/22/23 Lyle Leung MD [address] [place] [address] Nephrology 11/18/24 documented as of this encounter
--- OUTSIDE RECORDS SUMMARY | 2025-01-12 18:02 | XMS_ITS | Encounter Summary ---
Author Organization [facility] Address [facility] [place] [address] Care Team Providers Care Iron Caster Name Role Phone Lois Cox UTILITY SERVICE WORKER DOCTOR OF NURSE ANESTHESIA Primary Care Provider + Lois Cox APRN DOCTOR OF NURSE ANESTHESIA Unavailable [phone] Farhan Hinojosa MD Unavailable Braxton Tonya Rose [facility] Unavailable [phone] Lia Amaya [facility] Unavailable Lia Amaya [facility] Unavailable Chalo Gillespie MD Unavailable Lyle Leung MD Unavailable Reason for Visit * Reason Onset Date Comments Refill Request 05/15/2023 metoprolol succi carol ER (TOPROL XL) 50 MG 24 hr tablet Encounter Details Date Type Department Care Team (Late st Contact Info) Description 05/15/2023 Telephone [facility] [place] [address] [facility] [address] [place] [address] Tonya Limon, [place] DOCTOR OF NURSE ANESTHESIA [address] [facility] [address] [place] [address] Refill Request (/metoprolol succinate ER (TOPROL XL) 50 MG 24 hr tablet /) Social History Tobacco Use Types Packs/Day Years [...] re latives? Once a week 09/02/2024 Attends Christianity Services Not on file 09/02 Active Member of Clubs or Organizations Not on f ile 09/02/2024 Attends Club or Organization Meetings Not on pascale e 09/02/2024 Marital Status Not on file 09/02/2024 PHQ-2 Answer Date Recorded PHQ-2 Score 0 09/02/2024 [facility] [place] [facility] Occupat ional [facility] - Occupational Stress Questionnaire Answer Date Recorded [...] Answer Date Recorded Do you have housing? (Housin g is defined as stable permanent housing and does not include staying outside in a car, in a tent, in an abandoned building, in an overnight longterm, or couch-surfing.) Yes 09/02/2024 Are you worried [...] Sex Assigned at Male 10/16/2023 11:10 AM OUTREACH AND EDUCATION SOCIAL WORKER Legal Sex Male 3:09 AM OUTREACH AND EDUCATION SOCIAL WORKER Gender Identity Male 11/16/2020 12:30 PM OUTREACH AND EDUCATION SOCIAL WORKER Sexual Orientation Straight 11/16/2020 12 :30 PM OUTREACH AND EDUCATION SOCIAL WORKER COVID-19 Exposure Response Date Recorded In the last 10 days, have yo u been in contact with someone who was confirmed or suspected to have Coronavirus/COVID-19? No / Unsure 06/17/2023 10:27 AM CDT documented as of this encounter Miscellaneous Notes * Telephone Encounter - Angelique Phipps - 05/15/2023 10:58 AM CDT Health Call Center Phone Message May a detailed message be left on voicemail: yes Reason for Call: Medication Refill Request Has the patient contacted the pharmacy for the refill? Yes Name of medication being requested: metoprolol succinate ER (TOPROL XL) 50 MG 24 hr tablet Provider who prescribed the medication: Tonya Limon APRN DOCTOR OF NURSE ANESTHESIA Pharmacy: [facility] [place], [place] - [address] Date medication is needed: 05/17/2023 Action Taken: Other: cardio Travel Screening: Not Applicable Thank you! [facility] documented in this encounter Plan of Treatment Upcoming Encounters Date Type Department Care Team (Late st Contact Info) Description 07/06/2025 10:[address] [facility] Laboratory [address] [place] [phone] 07/13/2025 11:00 AM CDT Office Visit [facility] [place] [address] [facility] [address] [place] [phone] Lois Cox APRN DOCTOR OF NURSE ANESTHESIA [address] [address] Lyle Leung MD [address] [place], [place] [address] documented as of this encounter Visit Diagnoses Not on filedocumented in this encounter Additional Health Concerns Infection Onset Date Last Indicated Resolved Time Rule Out C-difficile 10/02/2023 10/02/2023 024 9:40 AM OUTREACH AND EDUCATION SOCIAL WORKER Assessment Noted Time PHQ-9 Depression Total Score: 1 05/15/20 23 1:08 PM CDT documented as of this encounter Care Teams Iron Caster Relationship Specialty Start Date End Date Lois Cox APRN DOCTOR OF NURSE ANESTHESIA [address] [address] PCP - General Nurse Practitioner - Family 12/01/19 Lois Cox APRN DOCTOR OF NURSE ANESTHESIA [address] [address] Assigned PCP 11/27/20 [place] [address] [place] [address] [place] [address] Assigned Musculoskeletal Provider 03/10/22 09/06/23 Tonya Limon APRN DOCTOR OF NURSE ANESTHESIA [address] [facility] [address] [place] [address] Assigned Heart and Vascular Provider 06/13/22 06/21/23 Lia Amaya [facility] [address] [place] [address] Pharmacist Pharmacist 11/19/22 11/26/23 Lia Amaya [facility] [address] [place] [address] Assigned MTM Pharmacist 11/24/22 Chalo Gillespie MD [address] [facility] [address] [place] [address] Assigned Heart and Vascular Provider 06/22/23 Lyle Leung MD [address] [place] [address] Nephrology 11/18/24 documented as of this encounter
--- OUTSIDE RECORDS SUMMARY | 2025-01-12 18:02 | XMS_ITS | Encounter Summary ---
Author Organization [place] Address Count includes the [facility] [place] [address] Care Team Providers Care System Auditor Name Role Phone Lois Cox APRN REVENUE FIELD AUDITOR Primary Care Provider + Lois Cox APRN REVENUE FIELD AUDITOR Unavailable [phone] Dillon Barksdale MD Unavailable Unavailable Farhan Hinojosa MD Unavailable Dar Brady MD Unavailable Unava ilable Limon February FAILURE ANALYSIS ENGINEER REVENUE FIELD AUDITOR Unavailable [phone] [address] [facility] Unavailable [phone] Lia Am[address] [facility] Unavailable [phone] Chalo Gillespie MD Unavailable Lyle Leung MD Unavailable Reason for Visit * Reason Comments Medication Refill Encounter Details Date Type Department Care Team (Late st Contact Info) Description 02/02/[address] [facility] [address] [place] [address] Lois Cox APRN [facility] [address] [place] [address] Medication Refill Social History Tobacco Use Types Packs/Day Years Used Date Smoking Tobacco: Former Cigarettes 0.5 10 0 09/16/1974 - 09/16/1984 Smokeless Tobacco: Never Alcohol Use Standard Drinks/Week Comments Yes 0 (1 standard drink = 0.6 oz pur e alcohol) occasionally PHQ-2 Answer Date Recorded PHQ-2 Score 0 11/18/2020 Sex and Gender Information Value Date Recorded Sex Assigned at Male 10/16/2023 11:10 AM STEAM ROOM ATTENDANT Legal Sex Male 3:09 AM STEAM ROOM ATTENDANT Gender Identity Male 11/16/2020 12:30 PM STEAM ROOM ATTENDANT Sexual Orientation Straight 11/16/2020 12 :30 PM STEAM ROOM ATTENDANT COVID-19 Exposure Response Date Recorded In the last month, have you been in contact with someone who was confirmed or suspected to have Coronavirus / COVID-19? No / Unsure 02/01/2021 10:06 AM CDT documented as of this encounter Miscellaneous Notes * Telephone Encounter - Maribel Cole RN - 02/02/2021 3:26 PM CDT Prescription approved per [facility] protocol. Maribel Cole RN on 02/02/2021 at 3:26 PM documented in this encounter Plan of Treatment Upcoming Encounters Date Type Department Care Team (Late st Contact Info) Description 07/06/2025 10:30 AM CDT Lab [facility] [address] [place] [address] 07/13/2025 11:00 AM CDT Office Visit [facility] [address] [phone] Lois Cox, ORLIN REVENUE FIELD AUDITOR [address] [place] [address] Lyle Leung MD [address] [place] [address] documented as of this encounter Visit Diagnoses Diagnosis Acute bronchitis, unspecified organism documented in this encounter Additional Health Concerns Infection Onset Date Last Indicated Resolved Time Rule Out COVID-19 11/12/2021 11/12/2021 11/12/2021 10:12 PM STEAM ROOM ATTENDANT Rule Out COVID-19 01/12/2022 01/12/2022 01/13/2022 2:57 PM CDT COVID-19 01/12/2022 01/12/2022 02/02/2022 11:3 9 PM CDT Rule Out COVID-19 04/10/2022 04/10/2022 04/11/2022 11:19 AM CDT Rule Out COVID-19 07/24/2022 07/24/2022 07/24/2022 11:03 AM STEAM ROOM ATTENDANT Rule Out COVID-19 08/19/2022 08/19/2022 08/19/2022 12:24 PM STEAM ROOM ATTENDANT Influenza 08/19/2022 08/19/2022 08/26/2022 11:4 1 PM STEAM ROOM ATTENDANT Rule Out C-difficile 11/22/2022 11/22/2022 023 8:51 PM STEAM ROOM ATTENDANT Rule Out C-difficile 10/02/2023 10/02/2023 024 9:40 AM STEAM ROOM ATTENDANT Assessment Noted Time PHQ-9 Depression Total Score: 0 11/19/19 21 8:20 AM STEAM ROOM ATTENDANT documented as of this encounter Care Teams System Auditor Relationship Specialty Start Date End Date Lois Cox APRN REVENUE FIELD AUDITOR [address] [address] PCP - General Nurse Practitioner - Family 12/01/19 Lois Cox APRN REVENUE FIELD AUDITOR [address] [address] Assigned PCP 11/27/20 Dillon Barksdale MD Assigned Heart and Vascular Provider 02/19/21 03/23/22 [place] [address] [address] [address] Assigned Musculoskeletal Provider 03/10/22 09/06/23 Dar Brady MD Assigned Heart and Vascular Provider 03/24/22 06/12/22 Tonya Limon APRN REVENUE FIELD AUDITOR [address] [place] [address] Assigned Heart and Vascular Provider 06/13/22 06/21/[address] [facility] [address] [place] [address] Pharmacist Pharmacist 11/19/22 11/26/[address] [facility] [address] [place] [address] Assigned MTM Pharmacist 11/24/22 Chalo Gillespie MD [address] [place] [address] Assigned Heart and Vascular Provider 06/22/23 Lyle Leung MD [address] [place] [address] Nephrology 11/18/24 documented as of this encounter
--- OUTSIDE RECORDS SUMMARY | 2025-01-12 18:02 | XMS_ITS | Encounter Summary ---
Author Organization [place] Address [address] [place] [address] Care Team Providers Care Water Safety Instructor Name Role Phone Lois Cox APRN SERVICES CLERK Primary Care Provider + Lois Cox APRN SERVICES CLERK Unavailable [phone] Chalo Gillespie MD Unavailable Lyle Leung MD Unavailable Encounter Details Date Type Department Care Team (Latest Contact Info) Description 12/24/2024 Travel Social History Tobacco Use Types Packs/Day Years [...] re latives? Once a week 09/02/2024 Attends Taoism Services Not on file 09/02 Active Member of Clubs or Organizations Not on f ile 09/02/2024 Attends Club or Organization Meetings Not on pascale e 09/02/2024 Marital Status Not on file 09/02/2024 PHQ-2 Answer Date Recorded PHQ-2 Score 0 09/02/2024 [facility] [place] of Occupat ional Health - Occupational Stress [...] in an abandoned building, in an overnight senior living, or couch-surfing.) Yes 09/02/2024 Are you worried [...] Sex Assigned at Male 10/16/2023 11:10 AM CREATIVE ARTS MUSIC THERAPIST Legal Sex Male 3:09 AM CREATIVE ARTS MUSIC THERAPIST Gender Identity Male 11/16/2020 12:30 PM CREATIVE ARTS MUSIC THERAPIST Sexual Orientation Straight 11/16/2020 12 :30 PM CREATIVE ARTS MUSIC THERAPIST documented as of this encounter Plan of Treatment Upcoming Encounters Date Type Department Care Team (Late st Contact Info) Description 07/06/2025 10:30 AM CDT Lab [facility] [address] [place] [address] 07/13/2025 11:00 AM CDT Office Visit [facility] [place] [address] [facility] [address] [place] [phone] Lois Cox APRN SERVICES CLERK [address] [place] [address] Lyle Leung MD [address] [place] [address] documented as of this encounter Visit Diagnoses Not on filedocumented in this encounter Additional Health Concerns Assessment Noted Time PHQ-9 Depression Total Score: 0 09/02/20 24 11:14 AM CREATIVE ARTS MUSIC THERAPIST documented as of this encounter Care Teams Water Safety Instructor Relationship Specialty Start Date End Date Lois Cox APRN SERVICES CLERK [address] [place] [address] PCP - General Nurse Practitioner - Family 12/01/19 Lois Cox APRN SERVICES CLERK [address] [place] [address] Assigned PCP 11/27/20 Chalo Gillespie MD [address] [facility] [address] [place], [place] [address] Assigned Heart and Vascular Provider 06/22/23 Lyle Leung MD [address] [place] [address] Nephrology 11/18/24 documented as of this encounter
--- OUTSIDE RECORDS SUMMARY | 2025-01-12 18:02 | XMS_ITS | Encounter Summary ---
Author Organization [place] Address [address] [place] [address] Care Team Providers Care Drafting Instructor Name Role Phone Lois Cox BEAUTY CULTURIST RELASTER Primary Care Provider + Lois Cox APRN RELASTER Unavailable [phone] Farhan Hinojosa MD Unavailable Braxton Tonya Rose BEAUTY CULTURIST RELASTER Unavailable [phone] Lia Amaya [facility] Unavailable [phone] Lia Amaya [facility] Unavailable [phone] Chalo Gillespie MD Unavailable Lyle Leung MD Unavailable Encounter Details Date Type Department Care Team (Late st Contact Info) Description 06/07/2023 [facility] Medical Advice [address] [address] Estefany Guardado Social History Tobacco Use Types Packs/Day Years Used Date Smoking Tobacco: Former Cigarettes 0.5 10 0 09/16/1974 - 09/16/1984 Passive Smoke Exposure: Never Smokeless Tobacco: Never Alcohol Use Standard Drinks/Week Comments Not Currently 0 (1 standard drink = 0.6 oz pur e alcohol) PHQ-2 Answer Date Recorded PHQ-2 Score 0 05/15/2023 Adolescent Education Answer Date Record ed Getting School Help Needed Not on file 06/07 Sex and Gender Information Value Date Recorded Sex Assigned at Male 10/16/2023 11:10 AM PROTECTION OFFICER Legal Sex Male 3:09 AM PROTECTION OFFICER Gender Identity Male 11/16/2020 12:30 PM PROTECTION OFFICER Sexual Orientation Straight 11/16/2020 12 :30 PM PROTECTION OFFICER COVID-19 Exposure Response Date Recorded In the last 10 days, have yo u been in contact with someone who was confirmed or suspected to have Coronavirus/COVID-19? No / Unsure 05/16/2023 2:04 PM CDT documented as of this encounter Plan of Treatment Upcoming Encounters Date Type Department Care Team (Late st Contact Info) Description 07/06/2025 10:30 AM CDT Lab [facility] [address] [place] [address] 07/13/2025 11:00 AM CDT Office Visit [facility] [address] [facility] [address] [place] [phone] Lois Cox APRN RELASTER [address] [address] Lyle Leung MD [address] [place], [place] [address] documented as of this encounter Visit Diagnoses Not on filedocumented in this encounter Additional Health Concerns Infection Onset Date Last Indicated Resolved Time Rule Out C-difficile 10/02/2023 10/02/2023 024 9:40 AM PROTECTION OFFICER Assessment Noted Time PHQ-9 Depression Total Score: 1 05/15/20 23 1:08 PM CDT documented as of this encounter Care Teams Drafting Instructor Relationship Specialty Start Date End Date Lois Cox APRN RELASTER [address] [address] PCP - General Nurse Practitioner - Family 12/01/19 Lois Cox APRN RELASTER [address] [address] Assigned PCP 11/27/20 [place] [address] [address] [place], [place] [address] [address] Assigned Musculoskeletal Provider 03/10/22 09/06/23 Tonya Limon APRN RELASTER [address] [place] [address] Assigned Heart and Vascular Provider 06/13/22 06/21/23 Lia Amaya [facility] [address] [place] [address] Pharmacist Pharmacist 11/19/22 11/26/23 Lia Amaya [facility] [address] [place] [address] Assigned MTM Pharmacist 11/24/22 Chalo Gillespie MD [address] [place] [address] Assigned Heart and Vascular Provider 06/22/23 Lyle Leung MD [address] [place] [address] Nephrology 11/18/24 documented as of this encounter
--- OUTSIDE RECORDS SUMMARY | 2025-01-12 18:02 | XMS_ITS | Encounter Summary ---
Author Organization [place] Address [address] [place] [address] Care Team Providers Care Cupola Liner Name Role Phone Lois Cox CAN STERILIZER RN LABOR DELIVERY Primary Care Provider + Lois Cox APRN RN LABOR DELIVERY Unavailable [phone] Dillon Barksdale MD Unavailable Unavailable Farhan Hinojosa MD Unavailable Dar Brady MD Unavailable Unava ilable Braxton Tonya Rose CAN STERILIZER RN LABOR DELIVERY Unavailable [phone] Lia Amaya [facility] Unavailable [phone] Lia Amaya [facility] Unavailable [phone] Chalo Gillespie MD Unavailable Lyle Leung MD Unavailable Encounter Details Date Type Department Care Team (Late st Contact Info) Description 07/25/2021 [facility] Medical Advice [facility] [address] [place] [address] Cristopher Light Social History Tobacco Use Types Packs/Day Years Used Date Smoking Tobacco: Former Cigarettes 0.5 10 0 09/16/1974 - 09/16/1984 Smokeless Tobacco: Never Alcohol Use Standard Drinks/Week Comments Yes 0 (1 standard drink = 0.6 oz pur e alcohol) occasionally PHQ-2 Answer Date Recorded PHQ-2 Score 0 11/18/2020 Sex and Gender Information Value Date Recorded Sex Assigned at Male 10/16/2023 11:10 AM ELEPHANT TAMER Legal Sex Male 3:09 AM ELEPHANT TAMER Gender Identity Male 11/16/2020 12:30 PM ELEPHANT TAMER Sexual Orientation Straight 11/16/2020 12 :30 PM ELEPHANT TAMER documented as of this encounter Plan of Treatment Upcoming Encounters Date Type Department Care Team (Late st Contact Info) Description 07/06/2025 10:30 AM CDT Lab [facility] [address] [place] [phone] 07/13/2025 11:00 AM CDT Office Visit [facility] [address] [facility] [address] [place] [phone] Lois Cox, ORLIN RN LABOR DELIVERY [address] [place] [address] Lyle Leung MD [address] [place] [address] documented as of this encounter Visit Diagnoses Not on filedocumented in this encounter Additional Health Concerns Infection Onset Date Last Indicated Resolved Time Rule Out COVID-19 11/12/2021 11/12/2021 11/12/2021 10:12 PM ELEPHANT TAMER Rule Out COVID-19 01/12/2022 01/12/2022 01/13/2022 2:57 PM CDT COVID-19 01/12/2022 01/12/2022 02/02/2022 11:3 9 PM CDT Rule Out COVID-19 04/10/2022 04/10/2022 04/11/2022 11:19 AM CDT Rule Out COVID-19 07/24/2022 07/24/2022 07/24/2022 11:03 AM ELEPHANT TAMER Rule Out COVID-19 08/19/2022 08/19/2022 08/19/2022 12:24 PM ELEPHANT TAMER Influenza 08/19/2022 08/19/2022 08/26/2022 11:4 1 PM ELEPHANT TAMER Rule Out C-difficile 11/22/2022 11/22/2022 023 8:51 PM ELEPHANT TAMER Rule Out C-difficile 10/02/2023 10/02/2023 024 9:40 AM ELEPHANT TAMER Assessment Noted Time PHQ-9 Depression Total Score: 0 11/19/19 21 8:20 AM ELEPHANT TAMER documented as of this encounter Care Teams Cupola Liner Relationship Specialty Start Date End Date Lois Cox APRN RN LABOR DELIVERY [address] [address] PCP - General Nurse Practitioner - Family 12/01/19 Lois Cox APRN RN LABOR DELIVERY [address] [address] Assigned PCP 11/27/20 Dillon Barksdale MD Assigned Heart and Vascular Provider 02/19/21 03/23/22 [place] [address] [place] [address] Assigned Musculoskeletal Provider 03/10/22 09/06/23 Dar Brady MD Assigned Heart and Vascular Provider 03/24/22 06/12/22 Tonya Limon APRN RN LABOR DELIVERY [address] [place] [address] Assigned Heart and Vascular Provider 06/13/22 06/21/23 Lia Amaya [facility] [address] [place] [address] Pharmacist Pharmacist 11/19/22 11/26/23 Lia Amaya [facility] [address] [place] [address] Assigned MTM Pharmacist 11/24/22 Chalo Gillespie MD [address] [facility] [address] [place] [address] Assigned Heart and Vascular Provider 06/22/23 Lyle Leung MD [address] [place], [place] [address] Nephrology 11/18/24 documented as of this encounter
--- OUTSIDE RECORDS SUMMARY | 2025-01-12 18:02 | XMS_ITS | Clinical Summary ---
Author Organization [facility] Address [address] [place] [address] Care Team Providers Care Supervisor Contact And Service Clerks Name Role Phone Mariano Abdi Primary Care [...] on file Legal Sex Male 5:24 AM LAUNDRY PRESSER Gender Identity Not on file Sexual Orientation [...] (226 lb 5 oz) 10/07/2018 1:23 PM LAUNDRY PRESSER Height 182.9 cm (6') 10/07/2018 1:23 PM LAUNDRY PRESSER Body Mass Index 30.69 10/07/2018 1:23 PM LAUNDRY PRESSER Plan of Treatment Health Maintenance Due Date [...] MEDICARE PART A HB ONLY REHAN RODRIGUEZ [id number] Advance Directives * Full Code (Latest Code Status on File) Date Activated Date Inactivated Comments 04/01/2019 6:58 AM 04/01/2019 11:56 AM * Full Code Date Activated Date Inactivated Comments 10/08/2018 8:06 AM 10/08/2018 1:36 PM Care Teams Supervisor Contact And Service Clerks Relationship Specialty Start Date End Date Mariano Abdi PCP - General Family Practice 10/03/18
--- OUTSIDE RECORDS SUMMARY | 2025-01-12 18:02 | XMS_ITS | Encounter Summary ---
Author Organization [place] Address [address] [place] [address] Care Team Providers Care Aquatics Director Name Role Phone Lois Cox BUTTON MAKER PSYCH TECH Primary Care Provider + Lois Cox APRN PSYCH TECH Unavailable [phone] Dillon Barksdale MD Unavailable Unavailable Farhan Hinojosa MD Unavailable Dar Brady MD Unavailable Unava ilable Braxton Tonya Rose BUTTON MAKER PSYCH TECH Unavailable [phone] Lia Amaya [facility] Unavailable [phone] Lia Amaya [facility] Unavailable [phone] Chalo Gillespie MD Unavailable Lyle Leung MD Unavailable Encounter Details Date Type Department Care Team (Late st Contact Info) Description 12/13/2021 [facility] Medical Advice [facility] [address] [place] [address] Cristopher Light Social History Tobacco Use Types Packs/Day Years Used Date Smoking Tobacco: Former Cigarettes 0.5 10 0 09/16/1974 - 09/16/1984 Smokeless Tobacco: Never Alcohol Use Standard Drinks/Week Comments Yes 0 (1 standard drink = 0.6 oz pur e alcohol) occasionally PHQ-2 Answer Date Recorded PHQ-2 Score Incomplete 11/27/2021 Sex and Gender Information Value Date Recorded Sex Assigned at Male 10/16/2023 11:10 AM BAND CUTTING MACHINE OPERATOR Legal Sex Male 3:09 AM BAND CUTTING MACHINE OPERATOR Gender Identity Male 11/16/2020 12:30 PM BAND CUTTING MACHINE OPERATOR Sexual Orientation Straight 11/16/2020 12 :30 PM BAND CUTTING MACHINE OPERATOR COVID-19 Exposure Response Date Recorded In the last month, have you been in contact with someone who was confirmed or suspected to have Coronavirus / COVID-19? No / Unsure 12/07/2021 10:42 AM CDT documented as of this encounter Plan of Treatment Upcoming Encounters Date Type Department Care Team (Late st Contact Info) Description 07/06/2025 10:30 AM CDT Lab [facility] [address] [place] [address] 07/13/2025 11:00 AM CDT Office Visit [facility] [address] [facility] [address] [place] [address] Lois Cox, ORLIN PSYCH TECH [address] [place] [address] Lyle Leung MD [address] [place], [place] [address] documented as of this encounter Visit Diagnoses Not on filedocumented in this encounter Additional Health Concerns Infection Onset Date Last Indicated Resolved Time Rule Out COVID-19 01/12/2022 01/12/2022 01/13/2022 2:57 PM CDT COVID-19 01/12/2022 01/12/2022 02/02/2022 11:3 9 PM CDT Rule Out COVID-19 04/10/2022 04/10/2022 04/11/2022 11:19 AM CDT Rule Out COVID-19 07/24/2022 07/24/2022 07/24/2022 11:03 AM BAND CUTTING MACHINE OPERATOR Rule Out COVID-19 08/19/2022 08/19/2022 08/19/2022 12:24 PM BAND CUTTING MACHINE OPERATOR Influenza 08/19/2022 08/19/202208/2608/26/2022 11:4 1 PM BAND CUTTING MACHINE OPERATOR Rule Out C-difficile 11/22/2022 11/22/2022 023 8:51 PM BAND CUTTING MACHINE OPERATOR Rule Out C-difficile 10/02/2023 10/02/2023 024 9:40 AM BAND CUTTING MACHINE OPERATOR Assessment Noted Time PHQ-9 Depression Total Score: 0 11/19/19 8:20 AM BAND CUTTING MACHINE OPERATOR documented as of this encounter Care Teams Aquatics Director Relationship Specialty Start Date End Date Lois Cox APRN PSYCH TECH [address] [place] [address] PCP - General Nurse Practitioner - Family 12/01/19 Lois Cox APRN PSYCH TECH [address] [place] [address] Assigned PCP 11/27/20 Dillon Barksdale MD Assigned Heart and Vascular Provider 02/19/21 03/23/22 [place] [address] [place] [address] [place] [address] [place] [address] Assigned Musculoskeletal Provider 03/10/22 09/06/23 Dar Brady MD Assigned Heart and Vascular Provider 03/24/22 06/12/22 Tonya Limon APRN PSYCH TECH [address] [place] [address] Assigned Heart and Vascular Provider 06/13/22 06/21/23 Lia Amaya [facility] [address] [place] [address] Pharmacist Pharmacist 11/19/22 11/26/23 Lia Amaya [facility] [place] [address] Assigned MTM Pharmacist 11/24/22 Chalo Gillespie MD [address] [facility] [address] [place] [address] Assigned Heart and Vascular Provider 06/22/23 Lyle Leung MD [address] [place] [address] Nephrology 11/18/24 documented as of this encounter
--- OUTSIDE RECORDS SUMMARY | 2025-01-12 18:02 | XMS_ITS | Encounter Summary ---
Author Organization [place] Address [address] [place] [address] Care Team Providers Care Joint Machine Operator Name Role Phone Lois Cox APRN BAR HELPER Primary Care Provider + Lois Cox APRN BAR HELPER Unavailable [phone] Chalo Gillespie MD Unavailable Lyle Leung MD Unavailable Encounter Details Date Type Department Care Team (Latest Contact Info) Description 12/10/2024 Travel Social History Tobacco Use Types Packs/Day [...] re latives? Once a week 09/02/2024 Attends Evangelical Services Not on file 09/02 Active Member of Clubs or Organizations Not on f ile 09/02/2024 Attends Club or Organization Meetings Not on pascale e 09/02/2024 Marital Status Not on file 09/02/2024 PHQ-2 Answer Date Recorded PHQ-2 Score 0 09/02/2024 [facility] [place] of Occupat ional Health - Occupational Stress [...] in an abandoned building, in an overnight long-term, or couch-surfing.) Yes 09/02/2024 Are you worried [...] Sex Assigned at Male 10/16/2023 11:10 AM WATERSHED ENGINEER Legal Sex Male 3:09 AM WATERSHED ENGINEER Gender Identity Male 11/16/2020 12:30 PM WATERSHED ENGINEER Sexual Orientation Straight 11/16/2020 12 :30 PM WATERSHED ENGINEER documented as of this encounter Plan of Treatment Upcoming Encounters Date Type Department Care Team (Late st Contact Info) Description 07/06/2025 10:30 AM CDT Lab [facility] [address] [place] [address] 07/13/2025 11:00 AM CDT Office Visit [facility] [address] [facility] [address] [place] [address] Lois Cox APRN BAR HELPER [address] [place] [address] Lyle Leung MD [address] [place] [address] documented as of this encounter Visit Diagnoses Not on filedocumented in this encounter Additional Health Concerns Assessment Noted Time PHQ-9 Depression Total Score: 0 09/02/20 24 11:14 AM WATERSHED ENGINEER documented as of this encounter Care Teams Joint Machine Operator Relationship Specialty Start Date End Date Lois Cox APRN BAR HELPER [address] [place] [address] PCP - General Nurse Practitioner - Family 12/01/19 Lois Cox APRN BAR HELPER [address] [place] [address] Assigned PCP 11/27/20 Chalo Gillespie MD [address] [facility] [address] [place], [place] [address] Assigned Heart and Vascular Provider 06/22/23 Lyle Leung MD 500 [place] [address] Nephrology 11/18/24 documented as of this encounter
--- OUTSIDE RECORDS SUMMARY | 2025-01-12 18:02 | XMS_ITS | Encounter Summary ---
Author Organization [facility] Address [address] [place] [address] Care Team Providers Care Senior Reservations Agent Name Role Phone Lois Cox APRN FINANCIAL CENTER MANAGER Primary Care Provider + Lois Cox APRN FINANCIAL CENTER MANAGER Unavailable [phone] Chalo Gillespie MD Unavailable Lyle Leung MD Unavailable Encounter Details Date Type Department Care Team (Late st Contact Info) Description 12/10/2024 10:30 AM CDT [facility] [address] [place] [phone] Inflammatory polyarthropathy (H) (Primary Dx) Social History Tobacco Use Types Packs/Day Years [...] re latives? Once a week 09/02/2024 Attends Rastafari Services Not on file 09/02 Active Member of Clubs or Organizations Not on f ile 09/02/2024 Attends Club or Organization Meetings Not on pascale e 09/02/2024 Marital Status Not on file 09/02/2024 PHQ-2 Answer Date Recorded PHQ-2 Score 0 09/02/2024 [facility] [place] of Occupat ional Health - Occupational Stress [...] Answer Date Recorded Do you have housing? (Aubriein g is defined as stable permanent housing and does not include staying outside in a car, in a tent, in an abandoned building, in an overnight assisted, or couch-surfing.) Yes 09/02/2024 Are you worried [...] Sex Assigned at Male 10/16/2023 11:10 AM LIFE INSURANCE AGENT Legal Sex Male 3:09 AM LIFE INSURANCE AGENT Gender Identity Male 11/16/2020 12:30 PM LIFE INSURANCE AGENT Sexual Orientation Straight 11/16/2020 12 :30 PM LIFE INSURANCE AGENT documented as of this encounter Plan of Treatment Upcoming Encounters Date Type Department Care Team (Late st Contact Info) Description 07/06/2025 10:30 AM CDT Lab [facility] [address] [place] [address] 07/13/2025 11:00 AM CDT Office Visit [facility] [address] [facility] 200 [place] [phone] Lois Cox APRN FINANCIAL CENTER MANAGER [address] [facility] [place], [place] [phone] Lyle Leung MD [address] [place], [place] [address] documented as of this encounter Procedures Procedure Name Priority Date/Time Associated Diagnosis Comments CREATININE Routine 12/10/2024 10:31 AM CDT Inflammatory polyarthropathy (H) AST Routine 12/10/2024 10:31 AM CDT Inflammatory polyarthropathy (H) ALT Routine 12/10/2024 10:31 AM CDT Inflammatory polyarthropathy (H) documented in this encounter Results * ALT (12/10/2024 10:31 AM CDT) ALT 24 0 - 70 U/L 12/10/2024 8:4 1 PM CDT [facility] Blood BLOOD SPECIMEN / Unknown Venipuncture / Unknown 12/10/2024 10:31 AM CDT 12/10/2024 10:34 AM CDT Hoda Hassan ORLIN FINANCIAL CENTER MANAGER LAB - BLOOD ORDERABLES Renee l Result LABORATORY [facility] [address] [facility], [address] [id number] [place] [address] * AST (12/10/2024 10:31 AM CDT) AST 42 0 - 45 U/L 12/10/2024 8:4 1 PM CDT [facility] Blood BLOOD SPECIMEN / Unknown Venipuncture / Unknown 12/10/2024 10:31 AM CDT 12/10/2024 10:34 AM CDT Hoda Hassan ORLIN FINANCIAL CENTER MANAGER LAB - BLOOD ORDERABLES Renee l Result Performing Organization Address City/[facility]/ZIP Co de Phone Number LABORATORY [facility] Core Lab [address] [facility], [address] * (ABNORMAL) Creatinine (12/10/2024 10:31 AM CDT) Creatinine 1.23(H) 0.67 - 1.17 mg/dL 12/10/2024 8:41 PM CDT [facility] GFR Estimate 59(L) >60 mL/min/1.7 3m2 12/10/2024 8:41 PM CDT [facility] Comment:eGFR calculated us2020 CKD-EPI equation. Blood BLOOD SPECIMEN / Unknown Venipuncture / Unknown 12/10/2024 10:31 AM CDT 12/10/2024 10:34 AM CDT Hoda Hassan ORLIN FINANCIAL CENTER MANAGER LAB - BLOOD ORDERABLES Renee l Result LABORATORY [facility] [address] [facility], [address] [id number] documented in this encounter Visit Diagnoses Diagnosis Inflammatory polyarthropathy (H)- Primary Unspecified inflammatory polyarthropathy documented in this encounter Additional Health Concerns Assessment Noted Time PHQ-9 Depression Total Score: 0 09/02/20 24 11:14 AM LIFE INSURANCE AGENT documented as of this encounter Care Teams Senior Reservations Agent Relationship Specialty Start Date End Date Lois Cox APRN FINANCIAL CENTER MANAGER [address] [place] [address] PCP - General Nurse Practitioner - Family 12/01/19 Lois Cox APRN FINANCIAL CENTER MANAGER [address] [place] [address] Assigned PCP 11/27/20 Chalo Gillespie MD [address] [facility] [address] [place] [address] Assigned Heart and Vascular Provider 06/22/23 Lyle Leung MD [address] [place] [address] Nephrology 11/18/24 documented as of this encounter
--- OUTSIDE RECORDS SUMMARY | 2025-01-12 18:02 | XMS_ITS | Encounter Summary ---
Author Organization [facility] Address [address] [place] [address] Care Team Providers Care Clin Nurse Name Role Phone Lois Cox ACCOUNT SERVICE REPRESENTATIVE BENZOL STILL OPERATOR Primary Care Provider + Lois Cox APRN BENZOL STILL OPERATOR Unavailable [phone] Dillon Barksdale MD Unavailable Unavailable Farhan Hinojosa MD Unavailable Dar Brady MD Unavailable Unava ilable Braxton Tonya Rose ACCOUNT SERVICE REPRESENTATIVE BENZOL STILL OPERATOR Unavailable [phone] Lia Amaya [facility] Unavailable [phone] Lia Amaya [facility] Unavailable [phone] Chalo Gillespie MD Unavailable Lyle Leung MD Unavailable Encounter Details Date Type Department Care Team (Late st Contact Info) Description 08/28/2021 [facility] Medical Advice [facility] [address] [place] [address] Cristopher Light Social History Tobacco [...] Sex Assigned at Male 10/16/2023 11:10 AM DERMATOLOGY TECHNICIAN Legal Sex Male 3:09 AM DERMATOLOGY TECHNICIAN Gender Identity Male 11/16/2020 12:30 PM DERMATOLOGY TECHNICIAN Sexual Orientation Straight 11/16/2020 12 :30 PM DERMATOLOGY TECHNICIAN COVID-19 Exposure Response Date Recorded In the last month, have you been in contact with someone who was confirmed or suspected to have Coronavirus / COVID-19? No / Unsure 07/31/2021 11:32 AM DERMATOLOGY TECHNICIAN documented as of this encounter Plan of Treatment Upcoming Encounters Date Type Department Care Team (Late st Contact Info) Description 07/06/2025 10:30 AM CDT Lab [facility] [address] [place] [address] 07/13/2025 11:00 AM CDT Office Visit [facility] [address] [facility] 200 [place] [phone] Lois Cox, ORLIN BENZOL STILL OPERATOR [address] [place] [address] Lyle Leung MD [address] [place], [place] [phone] documented as of this encounter Visit Diagnoses Not on filedocumented in this encounter Additional Health Concerns Infection Onset Date Last Indicated Resolved Time Rule Out COVID-19 11/12/2021 11/12/2021 11/12/2021 10:12 PM DERMATOLOGY TECHNICIAN Rule Out COVID-19 01/12/2022 01/12/2022 01/13/2022 2:57 PM CDT COVID-19 01/12/2022 01/12/2022 02/02/2022 11:3 9 PM CDT Rule Out COVID-19 04/10/2022 04/10/2022 04/11/2022 11:19 AM CDT Rule Out COVID-19 07/24/2022 07/24/2022 07/24/2022 11:03 AM DERMATOLOGY TECHNICIAN Rule Out COVID-19 08/19/2022 08/19/2022 08/19/2022 12:24 PM DERMATOLOGY TECHNICIAN Influenza 08/19/2022 08/19/2022 08/26/2022 11:4 1 PM DERMATOLOGY TECHNICIAN Rule Out C-difficile 11/22/2022 11/22/2022 023 8:51 PM DERMATOLOGY TECHNICIAN Rule Out C-difficile 10/02/2023 10/02/2023 024 9:40 AM DERMATOLOGY TECHNICIAN Assessment Noted Time PHQ-9 Depression Total Score: 0 11/19/19 8:20 AM DERMATOLOGY TECHNICIAN documented as of this encounter Care Teams Clin Nurse Relationship Specialty Start Date End Date Lois Cox APRN BENZOL STILL OPERATOR [address] [place] [address] PCP - General Nurse Practitioner - Family 12/01/19 Lois Cox APRN BENZOL STILL OPERATOR [address] [place] [address] Assigned PCP 11/27/20 Dillon Barksdale MD Assigned Heart and Vascular Provider 02/19/21 03/23/22 [place] [address] [address] [address] Assigned Musculoskeletal Provider 03/10/22 09/06/23 Dar Brady MD Assigned Heart and Vascular Provider 03/24/22 06/12/22 Tonya Limon APRN BENZOL STILL OPERATOR [address] [place] [address] Assigned Heart and Vascular Provider 06/13/22 06/21/23 iLa Amaya [facility] [address] [place] [address] Pharmacist Pharmacist 11/19/22 11/26/23 Lia Amaya, [facility] [address] [place] [address] Assigned MTM Pharmacist 11/24/22 Chalo Gillespie MD [address] [facility] [address] [place], [place] [address] Assigned Heart and Vascular Provider 06/22/23 Lyle Leung MD [address] [place], [place] [address] Nephrology 11/18/24 documented as of this encounter
--- OUTSIDE RECORDS SUMMARY | 2025-01-12 18:02 | XMS_ITS | Encounter Summary ---
Author Organization [facility] Address [address] [place] [address] Care Team Providers Care Industrial Engineering Professor Name Role Phone Lois Cox APRN MANAGER RFID Primary Care Provider + Lois Cox APRN MANAGER RFID Unavailable [phone] Chalo Gillespie MD Unavailable Lyle Leung MD Unavailable Encounter Details Date Type Department Care Team (Latest Contact Info) Description 01/05/2025 Travel Social History Tobacco Use Types Packs/Day [...] re latives? Once a week 09/02/2024 Attends Pentecostal Services Not on file 09/02 Active Member of Clubs or Organizations Not on f ile 09/02/2024 Attends Club or Organization Meetings Not on pascale e 09/02/2024 Marital Status Not on file 09/02/2024 PHQ-2 Answer Date Recorded PHQ-2 Score 0 09/02/2024 [facility] [place] of Occupat ional Health - Occupational Stress [...] in an abandoned building, in an overnight chcf, or couch-surfing.) Yes 09/02/2024 Are you worried [...] Sex Assigned at Male 10/16/2023 11:10 AM COMMUNITY OUTREACH COORDINATOR Legal Sex Male 3:09 AM COMMUNITY OUTREACH COORDINATOR Gender Identity Male 11/16/2020 12:30 PM COMMUNITY OUTREACH COORDINATOR Sexual Orientation Straight 11/16/2020 12 :30 PM COMMUNITY OUTREACH COORDINATOR documented as of this encounter Plan of Treatment Upcoming Encounters Date Type Department Care Team (Late st Contact Info) Description 07/06/2025 10:30 AM CDT Lab [facility] [address] [place] [address] 07/13/2025 11:00 AM CDT Office Visit [facility] [place] [address] [facility] [address] [place] [phone] Lois Cox APRN MANAGER RFID [id number] [place] [address] Lyle Leung MD [address] [place] [address] documented as of this encounter Visit Diagnoses Not on filedocumented in this encounter Additional Health Concerns Assessment Noted Time PHQ-9 Depression Total Score: 0 09/02/20 24 11:14 AM COMMUNITY OUTREACH COORDINATOR documented as of this encounter Care Teams Industrial Engineering Professor Relationship Specialty Start Date End Date Lois Cox APRN MANAGER RFID [id number] [place] [address] PCP - General Nurse Practitioner - Family 12/01/19 Lois Cox APRN MANAGER RFID [id number] [place] [address] Assigned PCP 11/27/20 Chalo Gillespie MD [address] [facility] [address] [place], [place] [address] Assigned Heart and Vascular Provider 06/22/23 Lyle Leung MD [address] [place] [address] Nephrology 11/18/24 documented as of this encounter
--- OUTSIDE RECORDS SUMMARY | 2025-01-12 18:02 | XMS_ITS | Encounter Summary ---
Author Organization [facility] Address [address] [place] [address] Care Team Providers Care Rn Admit Name Role Phone Mariano Abdi MD Primary Care Provider Unavailable To Powell PA-C Primary Care Provider Mariano Abdi MD Primary Care Provider Unavailable Mariano Abdi MD Unavailable Unavai Mariano Villanueva MD Unavailable Unavai Anjelica Ramirez [facility] Unavailable [phone] Iman Morales MD Unavailable + [phone] Lois Cox BRAND DEVELOPMENT MANAGER ENVIRONMENTAL ENGINEERING PROFESSOR Primary Care Provider + Lois Cox BRAND DEVELOPMENT MANAGER ENVIRONMENTAL ENGINEERING PROFESSOR Unavailable [phone] Wilfred Roberts DO Unavailable [phone] Lois Cox BRAND DEVELOPMENT MANAGER ENVIRONMENTAL ENGINEERING PROFESSOR Unavailable [phone] Dillon Barksdale MD Unavailable Unavailable Farhan Hinojosa MD Unavailable Dar Brady MD Unavailable Unava Tonya Lopez BRAND DEVELOPMENT MANAGER ENVIRONMENTAL ENGINEERING PROFESSOR Unavailable [phone] Lia Amaya [facility] Unavailable [phone] Lia Amaya [facility] Unavailable [phone] Chalo Gillespie MD Unavailable Lyle Leung MD Unavailable Encounter Details Date Type Department Care Team (Late st Contact Info) Description 04/22/2017 [facility] Medical Advice [facility] [address] [place] [address] [address] [place] [phone] Sujey Landon, [facility] [address] [place] [address] Social History Tobacco Use Types Packs/Day Years Used Date Smoking Tobacco: Former Cigarettes Q uit: 09/16/1984 Smokeless Tobacco: Never Alcohol Use Standard Drinks/Week Comments Yes 0 (1 standard drink = 0.6 oz pur e alcohol) occasionally Sex and Gender Information Value Date Recorded Sex Assigned at Male 10/16/2023 11:10 AM PATIENT CARE TECHNICIAN Legal Sex Male 3:09 AM PATIENT CARE TECHNICIAN Gender Identity Male 11/16/2020 12:30 PM PATIENT CARE TECHNICIAN Sexual Orientation Straight 11/16/2020 12 :30 PM PATIENT CARE TECHNICIAN documented as of this encounter Plan of Treatment Upcoming Encounters Date Type Department Care Team (Late st Contact Info) Description 07/06/2025 10:30 AM CDT Lab [facility] [address] [place] [phone] 07/13/2025 11:00 AM CDT Office Visit [facility] [address] [facility] 200 [place] [phone] Lois Cox, BRAND DEVELOPMENT MANAGER ENVIRONMENTAL ENGINEERING PROFESSOR [address] [place] [address] Lyle Leung MD [address] [place] [address] documented as of this encounter Visit Diagnoses Not on filedocumented in this encounter Additional Health Concerns Infection Onset Date Last Indicated Resolved Time Rule Out COVID-19 04/27/2020 04/27/2020 04/28/2020 5:31 PM CDT Rule Out COVID-19 07/15/2020 07/15/2020 07/16/2020 5:31 PM CDT Rule Out COVID-19 10/21/2020 10/21/2020 10/22/2020 1:31 PM PATIENT CARE TECHNICIAN Rule Out COVID-19 11/12/2021 11/12/2021 11/12/2021 10:12 PM PATIENT CARE TECHNICIAN Rule Out COVID-19 01/12/2022 01/12/2022 01/13/2022 2:57 PM CDT COVID-19 01/12/2022 01/12/2022 02/02/2022 11:3 9 PM CDT Rule Out COVID-19 04/10/2022 04/10/2022 04/11/2022 11:19 AM CDT Rule Out COVID-19 07/24/2022 07/24/2022 07/24/2022 11:03 AM PATIENT CARE TECHNICIAN Rule Out COVID-19 08/19/2022 08/19/2022 08/19/2022 12:24 PM PATIENT CARE TECHNICIAN Influenza 08/19/2022 08/19/2022 08/26/2022 11:4 1 PM PATIENT CARE TECHNICIAN Rule Out C-difficile 11/22/2022 11/22/2022 023 8:51 PM PATIENT CARE TECHNICIAN Rule Out C-difficile 10/02/2023 10/02/2023 024 9:40 AM PATIENT CARE TECHNICIAN Assessment Noted Time PHQ-9 Depression Total Score: 5 05/08/20 16 7:16 AM CDT documented as of this encounter Care Teams Rn Admit Relationship Specialty Start Date End Date Mariano Abdi MD PCP - General Family Practice 09/14/13 07/30/17 To Powell PA-C [address] [facility] [place] [address] PCP - General Physician Bus Transportation Manager 07/31/17 08/19/17 Mariano Abdi MD PCP - General Family Practice 08/20/17 11/30/19 Mariano Abdi MD PCP - Assigned PCP 12/22/17 11/18/18 Lois Cox APRN ENVIRONMENTAL ENGINEERING PROFESSOR [address] [place] [address] PCP - General Nurse Practitioner - Family 12/01/19 Mariano Abdi MD Assigned PCP 12/22/17 11/07/19 Anjelica Baker, [facility] [address] [place] [address] Pharmacist Pharmacist 07/28/19 10/11/19 [place] [address] [place] [address] Assigned PCP 11/08/19 11/21/19 Lois Cox APRN ENVIRONMENTAL ENGINEERING PROFESSOR [address] [place] [address] Assigned PCP 11/22/19 11/19/20 [place] [address] [place] [address] Assigned PCP 11/20/20 11/26/20 Lois Cox APRN ENVIRONMENTAL ENGINEERING PROFESSOR [address] [place] [address] Assigned PCP 11/27/20 Dillon Barksdale MD Assigned Heart and Vascular Provider 02/19/21 03/23/22 [place] [address] [place] [address] Assigned Musculoskeletal Provider 03/10/22 09/06/23 Dar Brady MD Assigned Heart and Vascular Provider 03/24/22 06/12/22 Tonya Limon APRN ENVIRONMENTAL ENGINEERING PROFESSOR [address] [place] [address] Assigned Heart and Vascular Provider 06/13/22 06/21/23 Lia Amaya [facility] [address] [place] [address] Pharmacist Pharmacist 11/19/22 11/26/23 Lia Amaya [facility] [address] [place] [address] Assigned MTM Pharmacist 11/24/22 Chalo Gillespie MD [address] [place] [address] Assigned Heart and Vascular Provider 06/22/23 Lyle Leung MD [address] [place], [place] [address] Nephrology 11/18/24 documented as of this encounter
--- OUTSIDE RECORDS SUMMARY | 2025-01-12 18:02 | XMS_ITS | Encounter Summary ---
Author Organization [facility] Address [address] [place] [address] Care Team Providers Care Customs Appraiser Name Role Phone Lois Cox SENIOR WEB DESIGNER SECURITY SUPERVISOR Primary Care Provider + Lois Cox APRN SECURITY SUPERVISOR Unavailable [phone] Farhan Hinojosa MD Unavailable Braxton Tonya Rose SENIOR WEB DESIGNER SECURITY SUPERVISOR Unavailable [phone] Lia Amaya [facility] Unavailable Lia Amaya [facility] Unavailable [phone] Chalo Gillespie MD Unavailable Lyle Leung MD Unavailable Encounter Details Date Type Department Care Team (Late st Contact Info) Description 06/18/2023 [facility] Medical Advice [facility] [address] [place] [phone] Sonia Romero, RN Social History Tobacco Use Types Packs/Day Years [...] Sex Assigned at Male 10/16/2023 11:10 AM BUSINESS EDUCATION TEACHER Legal Sex Male 3:09 AM BUSINESS EDUCATION TEACHER Gender Identity Male 11/16/2020 12:30 PM BUSINESS EDUCATION TEACHER Sexual Orientation Straight 11/16/2020 12 :30 PM BUSINESS EDUCATION TEACHER COVID-19 Exposure Response Date Recorded In the last 10 days, have yo u been in contact with someone who was confirmed or suspected to have Coronavirus/COVID-19? No / Unsure 06/17/2023 10:27 AM CDT documented as of this encounter Plan of Treatment Upcoming Encounters Date Type Department Care Team (Late st Contact Info) Description 07/06/2025 10:30 AM CDT Lab [facility] [address] [place] [address] 07/13/2025 11:00 AM CDT Office Visit [facility] [address] [facility] 200 [place] [phone] Lois Cox APRN SECURITY SUPERVISOR [address] [place] [address] Lyle Leung MD [address] [place] [address] documented as of this encounter Visit Diagnoses Not on filedocumented in this encounter Additional Health Concerns Infection Onset Date Last Indicated Resolved Time Rule Out C-difficile 10/02/2023 10/02/2023 024 9:40 AM BUSINESS EDUCATION TEACHER Assessment Noted Time PHQ-9 Depression Total Score: 1 05/15/20 23 1:08 PM CDT documented as of this encounter Care Teams Customs Appraiser Relationship Specialty Start Date End Date Lois Cox APRN SECURITY SUPERVISOR [address] [address] [place] [address] PCP - General Nurse Practitioner - Family 12/01/19 Lois Cox APRN SECURITY SUPERVISOR [address] [place] [address] Assigned PCP 11/27/20 [place] [address] [place] [address] Assigned Musculoskeletal Provider 03/10/22 09/06/23 Tonya Limon APRN SECURITY SUPERVISOR [address] [place] [address] Assigned Heart and Vascular Provider 06/13/22 06/21/23 Lia Amaya [facility] [address] [place] [address] Pharmacist Pharmacist 11/19/22 11/26/23 Lia Amaya [facility] [address] [place] [address] Assigned MTM Pharmacist 11/24/22 Chalo Gillespie MD [address] [place] [address] Assigned Heart and Vascular Provider 06/22/23 Lyle Leung MD [address] [place] [address] Nephrology 11/18/24 documented as of this encounter
--- OUTSIDE RECORDS SUMMARY | 2025-01-12 18:02 | XMS_ITS | Encounter Summary ---
Author Organization [place] Address [address] [place] [id number] Care Team Providers Care Dried Yeast Supervisor Name Role Phone Mariano Abdi MD Primary Care Provider Unavailable Mariano Abdi MD Unavailable UnavaAnjeilca Estrada [facility] Unavailable [phone] Norma December Yoly MARTÍNEZ Unavailable [phone] Lois Cox FILLING OPERATOR [employer] Primary Care Provider + Lois Cox FILLING OPERATOR [employer] Unavailable [phone] Wilfred Roberts DO Unavailable [phone] Lois Cox FILLING OPERATOR [employer] Unavailable [phone] Dillon Barksdale MD Unavailable Unavailable Farhan Hinojosa MD Unavailable Dar Brady MD Unavailable Unava laith Limon February FILLING OPERATOR [employer] Unavailable [phone] Lia Amaya [facility] Unavailable [phone] Lia Amaya [facility] Unavailable [phone] Chalo Gillespie MD Unavailable Lyle Leung MD Unavailable Reason for Visit * Reason Onset Date Comments Referral 07/08/2019 [place] Encounter Details Date Type Department Care Team (Late st Contact Info) Description 07/08/[address] [address] Mariano Abdi MD Referral ([facility]) Social History Tobacco Use Types Packs/Day Years [...] re latives? Once a week 09/02/2024 Attends Taoist Services Not on file 09/02 Active Member of Clubs or Organizations Not on f ile 09/02/2024 Attends Club or Organization Meetings Not on pascale e 09/02/2024 Marital Status Not on file 09/02/2024 PHQ-2 Answer Date Recorded PHQ-2 Score 0 09/02/2024 [facility] - Occupational Stress [...] in an abandoned building, in an overnight halfway, or couch-surfing.) Yes 09/02/2024 Are you worried [...] Sex Assigned at Male 10/16/2023 11:10 AM FLIGHT INFORMATION EXPEDITER Legal Sex Male 3:09 AM FLIGHT INFORMATION EXPEDITER Gender Identity Male 11/16/2020 12:30 PM FLIGHT INFORMATION EXPEDITER Sexual Orientation Straight 11/16/2020 12 :30 PM FLIGHT INFORMATION EXPEDITER COVID-19 Exposure Response Date Recorded In the last 10 days, have yo u been in contact with someone who was confirmed or suspected to have Coronavirus/COVID-19? No / Unsure 06/17/2023 10:27 AM CDT documented as of this encounter Miscellaneous Notes * Telephone Encounter - Dona Pino - 07/08/2019 3:22 PM CDT MTM referral from: Patient's insurance ([employer]or [employer]) MTM referral outreach attempt #1 on July 08, 2019 at 3:22 PM Outcome: No Answer LILIANA Vaz coordinator agriculture intern documented in this encounter Plan of Treatment Upcoming Encounters Date Type Department Care Team (Late st Contact Info) Description 07/06/2025 10:30 AM CDT [facility] [address] [place] [address] 07/13/2025 11:00 AM CDT Office Visit [facility] Special[facility] [address] [place] [phone] Lois Cox, ORLIN [employer] [address] [place] [address] Lyle Leung MD [address] [place] [address] documented as of this encounter Visit Diagnoses Not on filedocumented in this encounter Additional Health Concerns Infection Onset Date Last Indicated Resolved Time Rule Out COVID-19 04/27/2020 04/27/2020 04/28/2020 5:31 PM CDT Rule Out COVID-19 07/15/2020 07/15/2020 07/16/2020 5:31 PM CDT Rule Out COVID-19 10/21/2020 10/21/2020 10/22/2020 1:31 PM FLIGHT INFORMATION EXPEDITER Rule Out COVID-19 11/12/2021 11/12/2021 11/12/2021 10:12 PM FLIGHT INFORMATION EXPEDITER Rule Out COVID-19 01/12/2022 01/12/2022 01/13/2022 2:57 PM CDT COVID-19 01/12/2022 01/12/2022 02/02/2022 11:3 9 PM CDT Rule Out COVID-19 04/10/2022 04/10/2022 04/11/2022 11:19 AM CDT Rule Out COVID-19 07/24/2022 07/24/2022 07/24/2022 11:03 AM FLIGHT INFORMATION EXPEDITER Rule Out COVID-19 08/19/2022 08/19/2022 08/19/2022 12:24 PM FLIGHT INFORMATION EXPEDITER Influenza 08/19/2022 08/19/2022 08/26/2022 11:4 1 PM FLIGHT INFORMATION EXPEDITER Rule Out C-difficile 11/22/2022 11/22/2022 023 8:51 PM FLIGHT INFORMATION EXPEDITER Rule Out C-difficile 10/02/2023 10/02/2023 024 9:40 AM FLIGHT INFORMATION EXPEDITER Assessment Noted Time PHQ-9 Depression Total Score: 0 07/30/20 18 7:09 AM FLIGHT INFORMATION EXPEDITER documented as of this encounter Care Teams Dried Yeast Supervisor Relationship Specialty Start Date End Date Mariano Abdi MD PCP - General Family Practice 08/20/17 11/30/19 Lois Cox APRN [employer] [address] [place] [address] PCP - General Nurse Practitioner - Family 12/01/19 Mariano Abdi MD Assigned PCP 12/22/17 11/07/19 Anjelica Baker, [facility] [address] [place] [address] Pharmacist Pharmacist 07/28/19 10/11/19 [place] [address] [place] [address] Assigned PCP 11/08/19 11/21/19 Lois Cox APRN [employer] [address] [place] [address] Assigned PCP 11/22/19 11/19/20 [place] [address] [place] [address] Assigned PCP 11/20/20 11/26/20 Lois Cox APRN [employer] [address] [place] [address] Assigned PCP 11/27/20 Dillon Barksdale MD Assigned Heart and Vascular Provider 02/19/21 03/23/22 [place] [address] [place] [address] [place] [id number] Assigned Musculoskeletal Provider 03/10/22 09/06/23 Dar Brady MD Assigned Heart and Vascular Provider 03/24/22 06/12/22 Tonya Limon APRN [employer] [address] [place] [address] Assigned Heart and Vascular Provider 06/13/22 06/21/23 Lia Amaya [facility] [address] [place] [address] Pharmacist Pharmacist 11/19/22 11/26/23 Lia Amaya [facility] [address] [place] [address] Assigned MTM Pharmacist 11/24/22 Chalo Gillespie MD [address] [place] [address] Assigned Heart and Vascular Provider 06/22/23 Lyle Leung MD [address] [place] [address] Nephrology 11/18/24 documented as of this encounter
--- OUTSIDE RECORDS SUMMARY | 2025-01-12 18:02 | XMS_ITS | Clinical Summary ---
Author Organization [facility] Address [address] [place] [id number] Care Team Providers Care Social Worker Name Role Phone Lois Cox APRN PAINT FORMULATOR Primary Care Provider + Lois Cox APRN PAINT FORMULATOR Unavailable [phone] Chalo Gillespie MD Unavailable Lyle Leung MD Unavailable Allergies Active Allergy Reactions Criticality Noted Date Comments Amoxicillin-Pot Clavulanate Nausea 08/05/20 09 Amoxicillin-Pot Clavulanate Nausea and Vomiting 08/05/2009 Bee Venom Swelling 10/07/2018 Bees Swelling 07/30/2013 Gramineae Pollens Anaphylaxis High 11/08/2014 Medications gabapentin (NEURONTIN) 600 MG tablet Take 600 mg by mouth 3 times daily Active Melatonin 10 MG TABS tablet Take 10 mg by mouth At Bedtime Active albuterol (PROAIR HFA/PROVENTIL HFA/VENTOLIN HFA) 108 (90 Base) MCG/ACT inhalerIndications :SOB (shortness of breath) Inhale 2 puffs into the lungs every 6 hours as needed for shortness of breath / dyspnea or wheezing 18 g 3 08/14/20 22 Active tofacitinib (XELJANZ XR) 11 MG 24 hr tablet Take 11 mg by mouth daily 06/26/20 22 Active simethicone (MYLICON) 125 MG chewable tabletIndications: Diarrhea, unspecified type Take 1 tablet (125 mg) by mouth 2 times daily 30 tablet 11/23/19 23 Active diclofenac (VOLTAREN) 1 % topical gel 2 g 2 times daily as needed 01/04/20 23 Active aspirin 81 MG EC tabletIndications: NSTEMI (non-ST elevated myocardial infarction) (H) Take 1 tablet (81 mg) by mouth daily 90 tablet 3 06/17/20 23 Active nitroGLYcerin (NITROSTAT) 0.4 MG sublingual tabletIndications: NSTEMI (non-ST elevated myocardial infarction) (H) For chest pain place 1 tablet under the tongue every 5 minutes for 3 doses. If symptoms persist 5 minutes after 1st dose call 911. 20 tablet 3 06/17/20 23 Active cetirizine (ZYRTEC) 10 MG tablet Take 10 mg by mouth daily Active acetaminophen (TYLENOL) 325 MG tabletIndications: Closed fracture of lateral wall of right orbit, initial encounter (H) Take 2 tablets (650 mg) by mouth every 4 hours as needed for mild pain or other (and adjunct with moderate or severe pain or per patient request) 10/04/19 24 Active oxyCODONE (ROXICODONE) 5 MG tabletIndications: Closed fracture of lateral wall of right orbit, initial encounter (H) Take 0.5-1 tablets (2.5-5 mg) by mouth every 4 hours as needed for breakthrough pain (IF pain not managed with non-pharmacologi silvia and non-opioid interventions) 10 tablet 10/04/19 24 Active senna-docusate (SENOKOT-S/PERICOL JOY) 8.6-50 MG tabletIndications: Constipation, unspecified constipation type Take 1 tablet by mouth 2 times daily as needed for constipation 20 tablet 10/04/19 24 Active polyethylene glycol (MIRALAX) 17 g packetIndications: Constipation, unspecified constipation type Take 17 g by mouth daily 12 packet 10/04/19 24 Active pantoprazole (PROTONIX) 40 MG EC tabletIndications: LLQ abdominal pain Take 1 tablet (40 mg) by mouth daily. 90 tablet 1 07/28/20 24 Active ramelteon (ROZEREM) 8 MG tabletIndications: Insomnia, unspecified type Take 1 tablet (8 mg) by mouth at bedtime. 90 tablet 1 07/29/20 24 Active famotidine (PEPCID) 20 MG tablet Take 20 mg by mouth 2 times daily. 07/27/20 24 Active predniSONE (DELTASONE) 5 MG tablet Start taking 2 tablets daily. As tolerated, reduce by 2.5 mg every 2 weeks. Lower to no less than 5 mg daily before your next rheumatology follow-up. 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 180 capsule 3 09/02/20 24 Active losartan (COZAAR) 25 MG tabletIndications: Benign essential hypertension Take 1 tablet (25 mg) by mouth daily. 90 tablet 4 09/14/20 24 Active rosuvastatin (CRESTOR) 20 MG tabletIndications: Hypertensive emergency Take 1 tablet (20 mg) by mouth at bedtime. 90 tablet 4 09/23/19 25 Active metoprolol succinate ER (TOPROL XL) 50 MG 24 hr tabletIndications: Benign essential hypertension,Other cardiomyopathy (H) Take 0.5 tablets (25 mg) by mouth daily. 45 tablet 4 09/23/19 25 Active ezetimibe (ZETIA) 10 MG tabletIndications: Hyperlipidemia LDL goal <130 Take 1 tablet (10 mg) by mouth daily. 90 tablet 4 10/20/19 25 Active tiZANidine (ZANAFLEX) 2 MG tabletIndications: Pain of left lower extremity Take 1 tablet (2 mg) by mouth 3 times daily as needed for muscle spasms. 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 Infection due to 2019 novel coronavirus 01/16/20 CKD (chronic kidney disease) stage 3, GFR 30-59 ml/min 03/13/2019 Immunosuppressed status 09/25/2018 Other chronic pain 07/29/2018 LLQ abdominal pain 07/29/2018 Controlled substance agreement signed 06/12/2018 Overview (10/22/2019): Overview: Diagnosis: OA and RA Medication: percocet Controlled Substance Agreement reviewed and signed: yes Date agreement signed: 06/12/2018 Refill plan: 90 tablets for a one year supply Clinician: Angelina Olson MD Adverse effect of drug, subsequent encounter Melanotic stools 08/20/2017 Chronic cough 04/04/2017 Insomnia 11/29/2016 Primary osteoarthritis involving multiple joints 10/06/2016 Dysthymia 09/29/2016 High risk medication use 09/29/2016 Peripheral polyneuropathy 05/28/2016 Overview (05/28/2016): Left and right foot Inflammatory arthritis 12/08/2015 Pain, chronic 07/04/2015 Overview (04/22/2018): Patient is followed by Mariano Abdi MD for ongoing prescription of pain medication. All refills should be approved by this provider, or covering partner. Medication(s): TRAMADOL. Maximum quantity per month: 180 Clinic visit frequency required: Q 3 months Controlled substance agreement: Encounter-Level CSA - 07/04/15: Controlled Substance Agreement - Scan on 07/05/2015 7:35 AM : CONTROLLED SUBSTANCE AGREEMENT 07-04-15 (below) Pain Clinic evaluation in the past: Yes Date/Location: DIRE Total Score(s): No flowsheet data found. Last [facility] website verification: 03/26/18 [email or web address] [email or web address]/ RA (rheumatoid arthritis) 06/03/2015 Allergic state 06/11/2014 Overview (06/17/2015): Problem list name updated by automated process. Provider to review Hypertension goal BP (blood pressure) < 140/90 0 12/18/2012 Hyperlipidemia LDL goal <130 02/27/2012 Other enthesopathy of ankle and tarsus 2 Resolved Problems Problem Noted Date Diagnosed Date Resolved Date New onset atrial fibrillation 10/02/2023 09/02/2024 Flash pulmonary edema 05/14/20222022 Acute left ankle pain 11/25/20182018 Status post surgery 11/25/2018 12/16/19 19 Needs flu shot 07/05/2017 10/22/2019 Avascular necrosis 09/29/2016 0 Cellulitis of leg 04/13/2011 10/22/2019 Advanced directives, counseling/discussion 04/02/2011 03/02/2024 Overview (04/02/2011): Advance Directive Problem List Overview: Name Relationship Phone Primary Health Care Agent Alternative Health Care Agent Patient states has Advance Directive and will bring in a copy to clinic. 04/02/2011 CARDIOVASCULAR SCREENING; LD L GOAL LESS THAN 130 07/16/2010 02/27/2012 Encounters Date Type Department Care Team Description 01/05/2025 10:15 AM CDT Lab [facility] [address] [place] [address] Inflammatory polyarthritis (H) (Primary Dx); Inflammatory polyarthropathy (H) 01/05/2025 Travel 12/24/2024 10:30 AM CDT Lab [facility] [address] [place] [address] Inflammatory polyarthropathy (H) 12/24/2024 Travel 12/10/2024 10:30 AM CDT Lab [facility] [address] [place] [address] Inflammatory polyarthropathy (H) (Primary Dx) 12/10/2024 Travel 11/26/2024 [facility] [address] [place] [address] Lios Cox APRN PAINT FORMULATOR 11/22/2024 Telephone [facility] [address] [place] [phone] Lois Cox APRN PAINT FORMULATOR Medication Refill 11/18/2024 [facility] Services - Medical Specialties Service Line [address] [place] [phone] Lyle Leung MD Orders 11/18/2024 [facility]phone [facility] [address] [place] [phone] Lois Cox APRN CNP Kidney Problem; Referral (Nephrology ) 11/18/[address] [place] [phone] Tosin Washburn, RN Results 11/17/2024 11:30 AM SENIOR ORACLE DEVELOPER Lab [facility] [address] [place] [phone] Renal impairment; Dehydration 11/17/2024 Travel 11/11/2024 Telephone [place] [address] [place] [phone] Tosin Washburn, RN Results 11/10/2024 11:30 AM SENIOR ORACLE DEVELOPER Lab [facility] [address] [place] [phone] Arthritis, rheumatoid (H) (Primary Dx); Benign essential hypertension; Encounter for long-term (current) use of medications 11/10/2024 Travel 10/22/2024 11:00 AM SENIOR ORACLE DEVELOPER Lab [facility] [address] [place] [address] Inflammatory polyarthropathy (H) (Primary Dx) 10/22/2024 Travel 10/20/[address] [facility] [address] [place] [phone] Chalo Gillespie MD Refill Request (ezetimibe) from Last 3 Months Immunizations Name Administration Dates Next Due COVID-19 12+ (Pfizer) 07/02/2023 COVID-19 MONOVALENT 12+ (Pfizer) 11/25/2020,10/17 COVID-19 Monovalent 12+ (Pfi zer 2021) 01/23/2022 Flu 65+ (Fluad) 06/07/2015, 4,06/23/2013,06/10,07/15/2009 Flu, Unspecified 07/09/2006,08/04/1998, 7 HEPA 01/26/2013 HepB 02/24/2013,01/26/2013 07/29/2013 Hepatitis A/B (Twinrix) 08/10/2013 Influenza (High Dose) Trival ent,PF (Fluzone) 07/17/2024,07/06/2019,06/30/2018,06/16,07/05/2017,07/05/2016,05/17/2014 Influenza (IIV3) PF 06/07/2015, 4,06/23/2013,06/10,07/15/2009 Influenza Vaccine 65+ (FLUAD) 06/26/2021 Influenza Vaccine 65+ (Fluzone HD) 06/12/2023,,07/08/2020 Influenza Vaccine IM Ages 6- 35 Months 4 Valent (PF) 05/17/2014 Pneumo Conj 13-V (2010&after) 07/05/2016 Pneumococcal (PCV 7) 10/18/2009 Pneumococcal 23 valent 06/13/2010,09/16/2009 RSV Vaccine (Arexvy) 06/12/2023 TDAP Vaccine (Adacel) 10/22/2019,09/16/2009,01/14 TDAP Vaccine (Boostrix) 09/16/2009 Zoster recombinant adjuvante d (Shingrix) 06/07/2019,03/06/2019 Zoster vaccine, live 09/16/2010,09/03/2008 Family History Medical History Relation Comments Arthritis Brother 1 Heart Disease Brother 1 Hypertension Brother 1 Heart Disease Brother 2 Heart Disease Father Hypertension Father Arthritis Mother Relation Status Comments Brother 1 Alive Brother 2 Alive Brother 3 Alive Father Maternal Grandfather Maternal Grandmother Mother Paternal Grandfather Paternal Grandmother Sister Alive Social History Tobacco Use Types Packs/Day Years Used Date Smoking Tobacco: Former Cigarettes 0.5 10 0 09/16/1974 - 09/16/1984 Passive Smoke Exposure: Never Smokeless Tobacco: Never Tobacco Cessation:Counseling Given: [...] re latives? Once a week 09/02/2024 Attends Sikhism Services Not on file 09/02 Active Member of Clubs or Organizations Not on f ile 09/02/2024 Attends Club or Organization Meetings Not on pascale e 09/02/2024 Marital Status Not on file 09/02/2024 PHQ-2 Answer Date Recorded PHQ-2 Score 0 09/02/2024 [facility] of Occupat ional Health - Occupational Stress [...] Date Recorded Do you have housing? (Annamaria g is defined as stable permanent housing [...] Sex Assigned at Male 10/16/2023 11:10 AM SENIOR ORACLE DEVELOPER Legal Sex Male 3:09 AM SENIOR ORACLE DEVELOPER Gender Identity Male 11/16/2020 12:30 PM SENIOR ORACLE DEVELOPER Sexual Orientation Straight 11/16/2020 12 :30 PM SENIOR ORACLE DEVELOPER Last Filed Vital Signs Vital Sign Reading Time Taken Comments Blood Pressure 138/70 09/02/2024 10:47 AM SENIOR ORACLE DEVELOPER Pulse 52 09/02/2024 10:12 AM SENIOR ORACLE DEVELOPER Temperature 36.3 C (97.4 F) 09/02/2024 10:12 AM SENIOR ORACLE DEVELOPER Respiratory Rate 16 09/02/2024 10:1 2 AM SENIOR ORACLE DEVELOPER Oxygen Saturation 97% 09/02/2024 10: 12 AM SENIOR ORACLE DEVELOPER Inhaled Oxygen Concentration - - Weight 105.1 kg (231 lb 12.8 oz) 2023 10:12 AM SENIOR ORACLE DEVELOPER Height 182.9 cm (6') 09/02/2024 10:12 AM SENIOR ORACLE DEVELOPER Body Mass Index 31.44 09/02/2024 10:12 AM SENIOR ORACLE DEVELOPER Plan of Treatment Upcoming Encounters Date Type Department Care Team (Late st Contact Info) Description 07/06/2025 10:30 AM CDT Lab [facility] [address] [place] [phone] 07/13/2025 11:00 AM CDT Office Visit [facility] [place] [address] [place] [address] [address] [place] [address] Lois Cox APRN PAINT FORMULATOR [address] [address] Lyle Leung MD [address] [place] [address] Health Maintenance Due Date Last Done Comments CT COLONOGRAPHY 1945 FLEX SIG 1945 sDNA (Cologuard) 1945 FIT 08/20/2018 08/20/2017 URINE DRUG SCREEN 07/29/2019 07/29/2018 COVID-19 Vaccine (8 - Pfizer risk season) 2025 07/17/2024, 07/02/2023, 06/28/2022, Additional history exists MICROALBUMIN 04/07/2025 04/07/2024, 12/15, 07/29/2018, Additional history exists ANNUAL REVIEW OF HM ORDERS 09/02/202509/02, 07/02/2023, 01/01/2022, Additional history exists FALL RISK ASSESSMENT 09/02/2025 09/02/2024, 07/02/2023, 01/01/2022, Additional history exists MEDICARE ANNUAL WELLNESS VISIT 09/02/2025 09/02/2024, 07/02/2023, 01/01/2022, Additional history exists PHQ-9 09/02/2025 09/02/2024, 06/16, 05/15/2023, Additional history exists BMP 11/17/2025 11/17/2024, 10/18, 09/15/2024, Additional history exists HEMOGLOBIN 01/05/2026 01/05/2025, 12/15, 10/22/2024, Additional history exists LIPID 01/05/2026 01/05/2025, 03/17, 10/14/2023, Additional history exists COLONOSCOPY 03/01/2027 03/01/2022, 12/15, 10/18/2011, Additional history exists COLORECTAL CANCER SCREENING 03/01/2027 ADVANCE CARE PLANNING 09/02/2029 09/02/2024 , 07/26/2022, 07/02/2018, Additional history exists DTAP/TDAP/TD IMMUNIZATION (5 - Td or Tdap) 10/22/2029 10/22/2019, 09/16/2009, 09/16/2009, Additional history exists Pneumococcal Vaccine: 50+ Years Completed 07/05/2016, 06/13/2010, 09/16/2009 ZOSTER IMMUNIZATION Completed 06/07/2019, 03/06/2019, 09/16/2010, Additional history exists DEPRESSION ACTION PLAN Completed 11/18/2020, 2020 RSV VACCINE Completed 06/12/2023 URINALYSIS Completed 10/03/2023, 11/0 04/2022, 10/13/2017, Additional history exists INFLUENZA VACCINE Completed 07/17/2024, , 05/23/2022, Additional history exists HPV IMMUNIZATION Aged Out No longer e ligible based on patient's age to complete this topic MENINGITIS IMMUNIZATION Aged Out No l onger eligible based on patient's age to complete this topic Medical Devices Implanted Type Area Sterile Proc Tech Device Identifier Shelf Expiration Date Model / Serial / Lot Imp Plate Arthrex Low Pro Mtp Cntrd Short Lt Ti [id number] Implanted:Qty: 1 on 02/19/2013 by Jhon Ceron DPM at [facility] Left: Foot AR-[id number]- S / / [id number] Imp Scr Arthrex Cortical Lp 3x18mm Ti Ar-[id number] Implanted:Qty: 2 on 02/19/2013 by Jhon Ceron DPM at [facility] Left: Foot AR-8933-18 / / [id number] Imp Scr Arthrex Mtp Lp Locking 3x18mm Ti [id number] Implanted:Qty: 2 on 02/19/2013 by Jhon Ceron DPM at [facility] Left: Foot AR-8933L-1 8 [id number] Imp Scr Arthrex Mtp Lp Locking 3x12mm Ti [id number]-12 Implanted:Qty: 2 on 02/19/2013 by Jhon Ceron DPM at [facility] Left: Foot AR-8933L-1 2 / [id number] 4 Hole Metatarsal Plate Implanted:Qty: 2 on 02/19/2013 by Jhon Ceron DPM at [facility] Left: Foot [id number]- 18Feb2013 2.4x12mm Cortical Screw Implanted:Qty: 4 on 02/19/2013 by Jhon Ceron DPM at [facility] Left: Foot [id number] 2.4x10mm Cortical Screw Implanted:Qty: 2 on 02/19/2013 by Jhon Ceron DPM at [facility] Left: Foot [id number] 2.4x12 Locking Screw Implanted:Qty: 2 on 02/19/2013 by Jhon Ceron DPM at [facility] Left: Foot AR-[id number]-1 18Feb2013 Mesh Ventralex Hernia 2.5 [place] [employer] W/Strap [id number] Implanted:Qty: 1 on 11/13/2013 by Isaiah Garnett MD at [facility] N/A: Umbilical 09/15/2015 [id number] / [id number] / [id number] Mesh Ultrapro Hernia 2.4x4.7 Large Uhsl Implanted:Qty: 1 on 05/31/2016 by Isaiah Garnett MD at [facility] Left: Inguinal [employer]- 12/14/2017 UHSL / / [id number] Procedures Procedure Name Priority Date/Time Associated Diagnosis Comments CBC WITH PLATELETS & DIFFERENTIAL Routine 01/05/2025 10:04 AM CDT Inflammatory polyarthropathy (H) CREATININE Add-On 01/05/2025 10:04 AM CDT Inflammatory polyarthritis (H) CBC WITH PLATELETS AND DIFFERENTIAL Routine 01/05/2025 10:04 AM CDT Inflammatory polyarthropathy (H) LIPID REFLEX TO DIRECT LDL PANEL Routine 01/05/2025 10:04 AM CDT Inflammatory polyarthropathy (H) ALT Routine 01/05/2025 10:04 AM CDT Inflammatory polyarthropathy (H) AST Routine 01/05/2025 10:04 AM CDT Inflammatory polyarthropathy (H) CBC WITH PLATELETS & DIFFERENTIAL Routine 12/24/2024 10:18 AM CDT Inflammatory polyarthropathy (H) CBC WITH PLATELETS AND DIFFERENTIAL Routine 12/24/2024 10:18 AM CDT Inflammatory polyarthropathy (H) ALT Routine 12/24/2024 10:18 AM CDT Inflammatory polyarthropathy (H) AST Routine 12/24/2024 10:18 AM CDT Inflammatory polyarthropathy (H) ALT Routine 12/10/2024 10:31 AM CDT Inflammatory polyarthropathy (H) AST Routine 12/10/2024 10:31 AM CDT Inflammatory polyarthropathy (H) CREATININE Routine 12/10/2024 10:31 AM CDT Inflammatory polyarthropathy (H) BASIC METABOLIC PANEL Routine 11/17/2024 11:28 AM SENIOR ORACLE DEVELOPER Renal impairment Dehydration AST Add-On 11/10/2024 12:27 PM SENIOR ORACLE DEVELOPER Arthritis, rheumatoid (H) Encounter for long-term (current) use of medications ALT Add-On 11/10/2024 12:27 PM SENIOR ORACLE DEVELOPER Arthritis, rheumatoid (H) Encounter for long-term (current) use of medications BASIC METABOLIC PANEL Routine 11/10/2024 12:27 PM SENIOR ORACLE DEVELOPER Benign essential hypertension CBC WITH PLATELETS & DIFFERENTIAL Routine 10/22/2024 10:55 AM SENIOR ORACLE DEVELOPER Inflammatory polyarthropathy (H) CBC WITH PLATELETS AND DIFFERENTIAL Routine 10/22/2024 10:55 AM SENIOR ORACLE DEVELOPER Inflammatory polyarthropathy (H) ERYTHROCYTE SEDIMENTATION RATE AUTO Routine 10/22/2024 10:55 AM SENIOR ORACLE DEVELOPER Inflammatory polyarthropathy (H) CRP INFLAMMATION Routine 10/22/2024 10:5 5 AM SENIOR ORACLE DEVELOPER Inflammatory polyarthropathy (H) AST Routine 10/22/2024 10:55 AM SENIOR ORACLE DEVELOPER Inflammatory polyarthropathy (H) CREATININE Routine 10/22/2024 10:55 AM SENIOR ORACLE DEVELOPER Inflammatory polyarthropathy (H) ALBUMIN RANDOM URINE QUANTITATIVE Routine 04/07/2024 11:46 AM CDT CKD (chronic kidney disease) stage 3, GFR 30-59 ml/min (H) ROUTINE UA WITH MICROSCOPIC REFLEX TO CULTURE STAT 10/03/2023 12:16 AM SENIOR ORACLE DEVELOPER COLONOSCOPY - HIM SCAN 03/01/2022 12:00 AM CDT COMPREHEN DRUG ANALYSIS UR Routine 07/29/2018 11:07 AM SENIOR ORACLE DEVELOPER Encounter for Medicare annual wellness exam Other chronic pain LLQ abdominal pain OCCULT BLOOD STOOL STAT 08/20/2017 12 :24 PM SENIOR ORACLE DEVELOPER from Last 3 Months or Most Recently Relevant to Health Maintenance Results * (ABNORMAL) CBC with platelets and differential (01/05/2025 10:04 AM CDT) Only the most recent of3 resultswithin the time period is included. WBC Count 5.5 4.0 - 11.0 10e3/uL 01/05/2025 1:24 PM CDT [facility] RBC Count 3.77(L) 4.40 - 5.90 10e6/uL 01/05/2025 1:24 PM CDT [facility] Hemoglobin 12.1(L) 13.3 - 17.7 g/dL 01/05/2025 1:24 PM CDT [facility] Hematocrit 36.9(L) 40.0 - 53.0 % 01/05/2025 1:24 PM CDT [facility] MCV 98 78 - 100 fL 01/05/2025 1:24 PM CDT [facility] MCH 32.1 26.5 - 33.0 pg 01/05/2025 1:24 PM CDT [facility] MCHC 32.8 31.5 - 36.5 g/dL 01/05/2025 1:24 PM CDT [facility] RDW 13.4 10.0 - 15.0 % 01/05/2025 1:24 PM CDT [facility] Platelet Count 355 150 - 450 10e3/uL 01/05/2025 1:24 PM CDT [facility] % Neutrophils 70 % 01/05/2025 1:24 PM CDT [facility] % Lymphocytes 21 % 01/05/2025 1:24 PM CDT [facility] % Monocytes 8 % 01/05/2025 1:24 PM CDT [facility] % Eosinophils 1 % 01/05/2025 1:24 PM CDT [facility] % Basophils 1 % 01/05/2025 1:24 PM CDT [facility] % Immature Granulocytes 0 % 01/05/2025 1:24 PM CDT [facility] Absolute Neutrophils 3.8 1.6 - 8.3 10e3/uL 01/05/2025 1:24 PM CDT [facility] Absolute Lymphocytes 1.2 0.8 - 5.3 10e3/uL 01/05/2025 1:24 PM CDT [facility] Absolute Monocytes 0.4 0.0 - 1.3 10e3/uL 01/05/2025 1:24 PM CDT [facility] Absolute Eosinophils 0.0 0.0 - 0.7 10e3/uL 01/05/2025 1:24 PM CDT [facility] Absolute Basophils 0.0 0.0 - 0.2 10e3/uL 01/05/2025 1:24 PM CDT [facility] Absolute Immature Granulocytes 0.0 <=0.4 10e3/uL 01/05/2025 1:24 PM CDT [facility] Blood BLOOD SPECIMEN / Unknown Venipuncture / Unknown 01/05/2025 10:04 AM CDT 01/05/2025 10:04 AM CDT us Hoda Hassan APRN PAINT FORMULATOR LAB - BLOOD ORDERABLES Renee l Result LABORATORY [facility][note 3] Lab [address] [facility] (no room number, 1st floor of clinic) [place] [address], [facility] * Lipid panel reflex to direct LDL Fasting (01/05/2025 10:04 AM CDT) Cholesterol 164 <200 mg/dL 01/06/2025 1:20 PM CDT [facility] Triglycerides 115 <150 mg/dL 01/06/2025 1:20 PM CDT [facility] Direct Measure HDL 100 >=40 mg/dL 2024 1:20 PM CDT [facility] LDL Cholesterol Calculated 41 <100 mg/dL 01/06/2025 1:20 PM CDT [facility] Non HDL Cholesterol 64 <130 mg/dL 01/06/2025 1:20 PM CDT [facility] Patient Fasting > 8hrs? No 01/06/2025 1:20 PM CDT [facility] Blood BLOOD SPECIMEN / Unknown Venipuncture / Unknown 01/05/2025 10:04 AM CDT 01/05/2025 10:04 AM CDT Narrative [facility] - 01/06/2025 1:20 PM CDT Cholesterol Desirable: < 200 mg/dL Borderline High: 200 - 239 mg/dL High: >= 240 mg/dL Triglycerides Normal: < 150 mg/dL Borderline High: 150 - 199 mg/dL High: 200-499 mg/dL Very High: >= 500 mg/dL Direct Measure HDL Female: >= 50 mg/dL Male: >= 40 mg/dL LDL Cholesterol Desirable: < 100 mg/dL Above Desirable: 100 - 129 mg/dL Borderline High: 130 - 159 mg/dL High: 160 - 189 mg/dL Very High: >= 190 mg/dL Non HDL Cholesterol Desirable: < 130 mg/dL Above Desirable: 130 - 159 mg/dL Borderline High: 160 - 189 mg/dL High: 190 - 219 mg/dL Very High: >= 220 mg/dL us Hoda Hassan APRN PAINT FORMULATOR LAB - BLOOD ORDERABLES Renee hernández Result [facility] LAB[facility]ORY [facility] [address] [facility] [place] [address], [facility] [address] [facility], [address] [place] [address] * (ABNORMAL) Creatinine (01/05/2025 10:04 AM CDT) Only the most recent of3 resultswithin the time period is included. Pathologist [facility] Creatinine 1.61(H) 0.67 - 1.17 mg/dL 01/06/2025 1:20 PM CDT [facility] GFR Estimate 43(L) >60 mL/min/1.7 3m2 01/06/2025 1:20 PM CDT [facility] Comment:eGFR calculated usin 2020 CKD-EPI equation. Blood BLOOD SPECIMEN / Unknown Venipuncture / Unknown 01/05/2025 10:04 AM CDT 01/05/2025 10:04 AM CDT Hoda Sonya HARNESS TIER PAINT FORMULATOR LAB - BLOOD ORDERABLES Renee l Result [facility] Lab [address] [place] [address], [address] [phone] * (ABNORMAL) AST (01/05/2025 10:04 AM CDT) Only the most recent of5 resultswithin the time period is included. [facility] AST 46(H) 0 - 45 U/L 01/06/2025 1:2 0 PM CDT [facility] Blood BLOOD SPECIMEN / Unknown Venipuncture / Unknown 01/05/2025 10:04 AM CDT 01/05/2025 10:04 AM CDT us Hoda Sanketger HARNESS TIER PAINT FORMULATOR LAB - BLOOD ORDERABLES Renee l Result UR LABORATORY [facility] [address] [place] [address], [address] [address] [address] * ALT (01/05/2025 10:04 AM CDT) Only the most recent of4 resultswithin the time period is included. [facility] ALT 24 0 - 70 U/L 01/06/2025 1:2 0 PM CDT UR LABORATORY Blood BLOOD SPECIMEN / Unknown Venipuncture / Unknown 01/05/2025 10:04 AM CDT 01/05/2025 10:04 AM CDT us Hoda Hassan HARNESS TIER PAINT FORMULATOR LAB - BLOOD ORDERABLES Renee l Result UR LABORATORY [facility] Acute Care Lab [address] [facility], [address] [place] [address] * (ABNORMAL) Basic metabolic panel (11/17/2024 11:28 AM SENIOR ORACLE DEVELOPER) Only the most recent of2 resultswithin the time period is included. Sodium 135 135 - 145 mmol/L 11/17/2024 9:11 PM SENIOR ORACLE DEVELOPER [facility] Potassium 4.5 3.4 - 5.3 mmol/L 11/17/2024 9:11 PM SENIOR ORACLE DEVELOPER [facility] Chloride 99 98 - 107 mmol/L 11/17/2024 9:11 PM SENIOR ORACLE DEVELOPER [facility] Carbon Dioxide (CO2) 25 22 - 29 mmol/L 11/17/2024 9:11 PM SENIOR ORACLE DEVELOPER [facility] Anion Gap 11 7 - 15 mmol/L 11/17/2024 9:11 PM SENIOR ORACLE DEVELOPER [facility] Urea Nitrogen 23.3(H) 8.0 - 23.0 mg/dL 11/17/2024 9:11 PM SENIOR ORACLE DEVELOPER [facility] Creatinine 1.81(H) 0.67 - 1.17 mg/dL 11/17/2024 9:11 PM SENIOR ORACLE DEVELOPER [facility] GFR Estimate 37(L) >60 mL/min/1.7 3m2 11/17/2024 9:11 PM SENIOR ORACLE DEVELOPER [facility] Comment:eGFR calculated 2020 CKD-EPI equation. Calcium 9.7 8.8 - 10.4 mg/dL 11/17/2024 9:11 PM SENIOR ORACLE DEVELOPER [facility] Glucose 96 70 - 99 mg/dL 11/17/2024 9:11 PM SENIOR ORACLE DEVELOPER [facility] Blood BLOOD SPECIMEN / Unknown Venipuncture / Unknown 11/17/2024 11:28 AM SENIOR ORACLE DEVELOPER 11/17/2024 11:28 AM SENIOR ORACLE DEVELOPER us Chalo Gillespie MD LAB - BLOOD ORDERABLES Final Res ult U LABORATORY [facility] [place] Core Lab [address] [facility], Room [address] [address] * Erythrocyte sedimentation rate auto (10/22/2024 10:55 AM SENIOR ORACLE DEVELOPER) Erythrocyte Sedimentation Rate 16 0 - 20 mm/hr 10/22/2024 11:17 AM SENIOR ORACLE DEVELOPER LV LABORATORY Blood BLOOD SPECIMEN / Unknown Venipuncture / Unknown 10/22/2024 10:55 AM SENIOR ORACLE DEVELOPER 10/22/2024 10:55 AM SENIOR ORACLE DEVELOPER us Hoda Hassan APRN PAINT FORMULATOR LAB - BLOOD ORDERABLES Renee l Result Performing Organization Address City/[facility]/ZIP Co de Phone Number LABORATORY [facility] [id number] [place] [address] (no room number, 1st floor of clinic) [place] [address] * (ABNORMAL) CRP inflammation (10/22/2024 10:55 AM SENIOR ORACLE DEVELOPER) CRP Inflammation 7.18(H) <5.00 mg/L 10/22/2024 7:45 PM SENIOR ORACLE DEVELOPER [facility] Blood BLOOD SPECIMEN / Unknown Venipuncture / Unknown 10/22/2024 10:55 AM SENIOR ORACLE DEVELOPER 10/22/2024 10:55 AM SENIOR ORACLE DEVELOPER us Hoda Hassan APRN PAINT FORMULATOR LAB - BLOOD ORDERABLES Renee l Result U LABORATORY [facility] [place] Core Lab [address] [facility], [address] [address] * Albumin Random Urine Quantitative with Creat Ratio (04/07/2024 11:46 AM CDT) Creatinine Urine mg/dL 203.0 mg/dL 04/07/2024 11:38 PM CDT [facility] Comment:The reference ranges have not been established in urine creatinine. The results should be integrated into the clinical context for interpretation. Albumin Urine mg/L 24.3 mg/L 2023 11:38 PM CD [facility] Comment:The reference ranges have not been established in urine albumin. The results should be integrated into the clinical context for interpretation. Albumin Urine mg/g Cr 11.97 0.00 - 17.00 mg/g Cr 04/07/2024 11:38 PM CD [facility] Comment: Microalbuminuria is defined as an albumin:creatinine ratio of 17 to 299 for males and 25 to 299 for females. A ratio of albumin:creatinine of 300 or higher is indicative of overt proteinuria. Due to biologic variability, positive results should be confirmed by a second, first-morning random or 24-hour timed urine specimen. If there is discrepancy, a third specimen is recommended. When 2 out of 3 results are in the microalbuminuria range, this is evidence for incipient nephropathy and warrants increased efforts at glucose control, blood pressure control, and institution of therapy with an bgrmdsoqhyz-fkefsrwhub-fpkpxj (JOY) inhibitor (if the patient can tolerate it). Urine URINE SPECIMEN / Unknown Non-blood Collection / Unknown 04/07/2024 11:46 AM CDT 04/07/2024 11:46 AM CDT us Lois Cox APRN PAINT FORMULATOR LAB - URINE ORDERABLES F inal Result U LABORATORY [facility] Core Lab [address] [facility], Room [address] [place] [address] * (ABNORMAL) UA with Microscopic reflex to Culture (10/03/2023 12:16 AM SENIOR ORACLE DEVELOPER) Color Urine Yellow Colorless, Straw, Light Yellow, Yellow 10/03/2023 1:24 AM SENIOR ORACLE DEVELOPER LABORATORY Appearance Urine Clear Clear 10/03/19 24 1:24 AM SENIOR ORACLE DEVELOPER LABORATORY Glucose Urine Negative Negative mg/dL 10/03/2023 1:24 AM SENIOR ORACLE DEVELOPER LABORATORY Bilirubin Urine Negative Negative 4 1:24 AM SENIOR ORACLE DEVELOPER LABORATORY Ketones Urine Negative Negative mg/dL 10/03/2023 1:24 AM SENIOR ORACLE DEVELOPER LABORATORY Specific [place] Urine 1.018 1.003 - 1.035 10/03/2023 1:24 AM SENIOR ORACLE DEVELOPER LABORATORY Blood Urine Negative Negative 10/03/2023 1:24 AM SENIOR ORACLE DEVELOPER LABORATORY pH Urine 5.0 5.0 - 7.0 10/03/2023 1:24 AM SENIOR ORACLE DEVELOPER LABORATORY Protein Albumin Urine Negative Negative mg/dL 10/03/2023 1:24 AM SENIOR ORACLE DEVELOPER LABORATORY Urobilinogen Urine Normal Normal, 2.0 mg/dL 10/03/2023 1:24 AM SENIOR ORACLE DEVELOPER LABORATORY Nitrite Urine Negative Negative 10/03/2023 1:24 AM SENIOR ORACLE DEVELOPER LABORATORY Leukocyte Esterase Urine Negative Negative 10/03/2023 1:24 AM SENIOR ORACLE DEVELOPER LABORATORY Mucus Urine Present(A) None Seen /LPF 10/03/2023 1:24 AM SENIOR ORACLE DEVELOPER LABORATORY RBC Urine 1 <=2 /HPF 10/03/2023 1:24 AM SENIOR ORACLE DEVELOPER LABORATORY WBC Urine <1 <=5 /HPF 10/03/2023 1:24 AM SENIOR ORACLE DEVELOPER LABORATORY Squamous Epithelials Urine <1 <=1 /HPF 10/03/2023 1:24 AM SENIOR ORACLE DEVELOPER LABORATORY Hyaline Casts Urine 3(H) <=2 /LPF 10/03/2023 1:24 AM SENIOR ORACLE DEVELOPER LABORATORY Urine URINE SPECIMEN OBTAINED BY CLEAN CATCH PROCEDURE / Unknown Non-blood Collection / Unknown 10/03/2023 12:16 AM SENIOR ORACLE DEVELOPER 10/03/2023 1:15 AM SENIOR ORACLE DEVELOPER Narrative LABORATORY - 10/03/2023 1:24 AM SENIOR ORACLE DEVELOPER Urine Culture not indicated Serge Patel MD LAB - URINE ORDERABLES Final Re sult LABORATORY [facility] Acute Care Lab [address] Lab (1st floor, no room number) [place] [address], [facility] [phone] * COLONOSCOPY - HIM SCAN (03/01/2022 12:00 AM CDT) 03/01/2022 us Provider Outside PROCEDURES Final Result * Drug Screen Comprehensive, Urine w/o Reported Meds (Pain Care Package) (07/29/2018 11:07 AM SENIOR ORACLE DEVELOPER) Comprehen Drug Analysis UR FINAL 08/01/2018 3:04 PM SENIOR ORACLE DEVELOPER [facility] Comment: (Note) COMPREHENSIVE DRUG ANALYSIS,UR Test Result Flag Units Drug Present Gabapentin PRESENT Zolpidem PRESENT Zolpidem Acid PRESENT Zolpidem acid is an expected metabolite of zolpidem. Duloxetine PRESENT Lidocaine PRESENT Test Result Flag Units Ref Range Creatinine 160 mg/dL >=20 For clinical consultation, please call . Analysis performed by [facility], [address] [place] [address] Urine specimen (specimen) 07/29/2018 11:07 AM SENIOR ORACLE DEVELOPER 07/29/2018 11:08 AM SENIOR ORACLE DEVELOPER us Mariano Abdi MD LAB - URINE ORDERABLES Final Result [facility] [address] [place] [address] * (ABNORMAL) Stool: occult blood (08/20/2017 12:24 PM SENIOR ORACLE DEVELOPER) Occult Blood Positive(A ) NEG^Negati ve 08/20/2017 12:56 PM SENIOR ORACLE DEVELOPER [facility] Stool specimen (specimen) STOOL SPECIMEN / Unknown 08/20/2017 12:24 PM SENIOR ORACLE DEVELOPER 08/20/2017 12:54 PM SENIOR ORACLE DEVELOPER Karen Bowers PA-C LAB - STOOLS ORDERA BLES Final Result [facility] [address] [place], [place] [address] [phone] from Last 3 Months or Most Recently Relevant to Health Maintenance Insurance [employer] MEDICARE ADVANTAGE [employer] MEDICARE ADVANTAGE * Guarantor: Gino Toussaint Account Type Relation to Patient Date of Phone Billing Address Medication Therapy Self [address] [place] [address] Advance Directives For more information, please contact: [phone] Documents on File Type Date Recorded Patient Drum Barker Operator Expl anation Advance Directives and Living Will 07/26/2022 [facility] 07-25-2022 Advance Directives and Living Will 02/20/2013 [facility] 06-08-2004 * Full Code (Latest Code Status on File) Date Activated Date Inactivated Comments 10/02/2023 11:39 PM 10/04/2023 12:34 PM All basic and advanced life-sustaining interventions are performed as appropriate Question Answer Comments Code status determined by: Discussion with patie nt/ legal decision maker * No CPR- Do NOT Intubate Date Activated Date Inactivated Comments 07/28/2022 8:08 AM 08/19/2022 10:58 AM Question Answer Comments Code status determined by: Discussion with patie nt/ legal decision maker * No CPR- Do NOT Intubate Date Activated Date Inactivated Comments 07/24/2022 10:14 PM 07/28/2022 8:08 AM NO basic o r advanced life-sustaining interventions are performed Question Answer Comments Code status determined by: Discussion with patie nt/ legal decision maker * Full Code Date Activated Date Inactivated Comments 07/24/2022 8:33 PM 07/24/2022 10:14 PM All basic a nd advanced life-sustaining interventions are performed as appropriate Question Answer Comments Code status determined by: Discussion with patie nt/ legal decision maker * Full Code Date Activated Date Inactivated Comments 05/14/2022 8:12 PM 05/16/2022 3:54 PM All basic an d advanced life-sustaining interventions are performed as appropriate Question Answer Comments Code status determined by: Discussion with patie nt/ legal decision maker Healthcare Agents on File Name Relationship Healthcare Agent Relationship Communication Renetta Toussaint Spouse Health Care Agent Carmella Mcintyre Daughter First Alternate Health Care Agent Care Teams Social Worker Relationship Specialty Start Date End Date Lois Cox APRN PAINT FORMULATOR [address] [place] [address] PCP - General Nurse Practitioner - Family 12/01/19 Lois Cox APRN PAINT FORMULATOR [address] [place] [address] Assigned PCP 11/27/20 Chalo Gillespie MD [address] [facility] [address] [place] [id number] Assigned Heart and Vascular Provider 06/22/23 Lyle Leung MD [address] [place], [place] [address] Nephrology 11/18/24
--- OUTSIDE RECORDS SUMMARY | 2025-01-12 18:02 | XMS_ITS | Encounter Summary ---
Author Organization [facility] Address [address] [place] [address] Care Team Providers Care Geology Scientist Name Role Phone Lois Cox APRN SACK SEWER Primary Care Provider + Lois Cox APRN SACK SEWER Unavailable [phone] Chalo Gillespie MD Unavailable Lyle Leung MD Unavailable Encounter Details Date Type Department Care Team (Late st Contact Info) Description 01/05/2025 10:15 AM CDT [facility] Laboratory [address] [place] [address] Inflammatory polyarthritis (H) (Primary Dx); Inflammatory polyarthropathy (H) Social History Tobacco Use [...] re latives? Once a week 09/02/2024 Attends Holiness Services Not on file 09/02 Active Member of Clubs or Organizations Not on f ile 09/02/2024 Attends Club or Organization Meetings Not on pascale e 09/02/2024 Marital Status Not on file 09/02/2024 PHQ-2 Answer Date Recorded PHQ-2 Score 0 09/02/2024 [facility] of Occupat ional Health - Occupational Stress [...] in an abandoned building, in an overnight usp, or couch-surfing.) Yes 09/02/2024 Are you worried [...] Sex Assigned at Male 10/16/2023 11:10 AM TELECOMMUNICATIONS ADMINISTRATOR Legal Sex Male 3:09 AM TELECOMMUNICATIONS ADMINISTRATOR Gender Identity Male 11/16/2020 12:30 PM TELECOMMUNICATIONS ADMINISTRATOR Sexual Orientation Straight 11/16/2020 12 :30 PM TELECOMMUNICATIONS ADMINISTRATOR documented as of this encounter Miscellaneous Notes * Addendum Note - Dino Luna - 01/05/2025 10:15 AM CDTAddended by: DINO LUNA on: 01/05/2025 12:37 PM Modules accepted: Orders documented in this encounter Plan of Treatment Upcoming Encounters Date Type Department Care Team (Late st Contact Info) Description 07/06/2025 10:30 AM CDT Lab [facility] Laboratory [address] [place] [address] 07/13/2025 11:00 AM CDT Office Visit [facility] [place] [address] [place] [address] Lois Cox, ORLIN SACK SEWER [address] [place] [address] Lyle Leung MD [address] [place], [place] [address] documented as of this encounter Procedures Procedure Name Priority Date/Time Associated Diagnosis Comments CBC WITH PLATELETS AND DIFFERENTIAL Routine 01/05/2025 10:04 AM CDT Inflammatory polyarthropathy (H) CBC WITH PLATELETS & DIFFERENTIAL Routine 01/05/2025 10:04 AM CDT Inflammatory polyarthropathy (H) LIPID REFLEX TO DIRECT LDL PANEL Routine 01/05/2025 10:04 AM CDT Inflammatory polyarthropathy (H) CREATININE Add-On 01/05/2025 10:04 AM CDT Inflammatory polyarthritis (H) AST Routine 01/05/2025 10:04 AM CDT Inflammatory polyarthropathy (H) ALT Routine 01/05/2025 10:04 AM CDT Inflammatory polyarthropathy (H) documented in this encounter Results * (ABNORMAL) Creatinine (01/05/2025 10:04 AM CDT) Creatinine 1.61(H) 0.67 - 1.17 mg/dL 01/06/2025 1:20 PM CDT UR LABORATORY GFR Estimate 43(L) >60 mL/min/1.7 3m2 01/06/2025 1:20 PM CDT UR LABORATORY Comment:eGFR calculated us2020 CKD-EPI equation. Blood BLOOD SPECIMEN / Unknown Venipuncture / Unknown 01/05/2025 10:04 AM CDT 01/05/2025 10:04 AM CDT us Hoda Hassan APRN SACK SEWER LAB - BLOOD ORDERABLES Renee hernández Result UR LABORATORY [facility] Acute Care Lab [address] [facility], [address] [place] [address] * (ABNORMAL) CBC with platelets and differential (01/05/2025 10:04 AM CDT) WBC Count 5.5 4.0 - 11.0 10e3/uL [...] 10:04 AM CDT us Hoda Hassan APRN SACK SEWER LAB - BLOOD ORDERABLES Renee edgar Result LV LABORATORY [facility] Lab [address] [facility] Lab (no room number, 1st floor of clinic) [place] [address], [facility] * Lipid panel reflex to direct LDL [...] >= 220 mg/dL us Hoda Hassan APRN SACK SEWER LAB - BLOOD ORDERABLES Renee l Result UR LABORATORY [facility] Lab [address] [facility], [address] [place] [address], [facility] UU LABORATORY [facility] Core Lab [address] [facility], [address] [place] [address] * ALT (01/05/2025 10:04 AM CDT) ALT 24 0 - 70 U/L 01/06/2025 1:2 0 PM CDT UR LABORATORY Blood BLOOD SPECIMEN / Unknown Venipuncture / Unknown 01/05/2025 10:04 AM CDT 01/05/2025 10:04 AM CDT us Hoda Hassan APRN SACK SEWER LAB - BLOOD ORDERABLES Renee l Result UR LABORATORY [facility] Lab [address] [place] [address], Room [address] [address] * (ABNORMAL) AST (01/05/2025 10:04 AM CDT) AST 46(H) 0 - 45 U/L 01/06/2025 1:2 0 PM CDT UR LABORATORY Blood BLOOD SPECIMEN / Unknown Venipuncture / Unknown 01/05/2025 10:04 AM CDT 01/05/2025 10:04 AM CDT us Hoda Hassan APRN, CNP LAB - BLOOD ORDERABLES Renee l Result UR LABORATORY [facility] [address] [place] [address], Room [address] [address] documented in this encounter Visit Diagnoses Diagnosis Inflammatory polyarthritis (H)- Primary Unspecified inflammatory polyarthropathy Inflammatory polyarthropathy (H) Unspecified inflammatory polyarthropathy documented in this encounter Additional Health Concerns Assessment Noted Time PHQ-9 Depression Total Score: 0 09/02/20 24 11:14 AM TELECOMMUNICATIONS ADMINISTRATOR documented as of this encounter Care Teams Geology Scientist Relationship Specialty Start Date End Date Lois Cox APRN SACK SEWER [address] [address] PCP - General Nurse Practitioner - Family 12/01/19 Lois Cox APRN SACK SEWER [address] [address] Assigned PCP 11/27/20 Chalo Gillespie MD [address] [place] [address] Assigned Heart and Vascular Provider 06/22/23 Lyle Leung MD [address] [place], [place] [address] Nephrology 11/18/24 documented as of this encounter
--- OUTSIDE RECORDS SUMMARY | 2025-01-12 18:02 | XMS_ITS | Clinical Summary ---
Author Organization [facility] Address [address] [address] Phone Care Team Providers Care Kai[place]aere Name Role Phone Unavailable Primary Care Provider [...] nerve monitoring; Surgeon: Chin Valdez MD; Location: [facility] OR Medical History Medical History Date Comments [...] patient's age to complete this topic Insurance [employer] MEDICARE ADVANTAGE Advance Directives For more information, please contact: [phone] * Full Code (Latest Code Status on File) Date Activated Date Inactivated Comments 04/30/2023 7:53 AM 05/01/2023 3:51 PM
--- OUTSIDE RECORDS SUMMARY | 2025-01-12 18:03 | XMS_ITS | Encounter Summary ---
Author Organization [facility] Address [address] [place] [address] Care Team Providers Care Biostatistics Professor Name Role Phone Lois Cox APRN FEEDER TENDER Primary Care Provider + Lois Cox APRN FEEDER TENDER Unavailable [phone] Wilfred Roberts DO Unavailable [phone] Lois Cox TELEPHONE INFORMATION SUPERVISOR FEEDER TENDER Unavailable [phone] Dillon Barksdale MD Unavailable Unavailable Farhan Hinojosa MD Unavailable Dar Brady MD Unavailable Unava iljustice Tonya Limon TELEPHONE INFORMATION SUPERVISOR FEEDER TENDER Unavailable [phone] Lia Amaya [facility] Unavailable [phone] Lia Amaya [facility] Unavailable [phone] Chalo Gillespie MD Unavailable Lyle Leung MD Unavailable Encounter Details Date Type Department Care Team (Late st Contact Info) Description 05/16/[address] [address] Angelina Olson MD [address] [place] [address] Rheumatoid arthritis, adult (H) (Primary Dx); Encounter for long-term (current) use of medications Social History Tobacco Use Types Packs/Day Years Used Date Smoking Tobacco: Former Cigarettes Q uit: 09/16/1984 Smokeless Tobacco: Never Alcohol Use Standard Drinks/Week Comments Yes 0 (1 standard drink = 0.6 oz pur e alcohol) occasionally PHQ-2 Answer Date Recorded PHQ-2 Score 0 09/25/2018 Sex and Gender Information Value Date Recorded Sex Assigned at Male 10/16/2023 11:10 AM AIRLINE MECHANIC Legal Sex Male 3:09 AM AIRLINE MECHANIC Gender Identity Male 11/16/2020 12:30 PM AIRLINE MECHANIC Sexual Orientation Straight 11/16/2020 12 :30 PM AIRLINE MECHANIC COVID-19 Exposure Response Date Recorded In the last month, have you been in contact with someone who was confirmed or suspected to have Coronavirus / COVID-19? Unable to assess 04/27/2020 2:08 PM CDT documented as of this encounter Plan of Treatment Upcoming Encounters Date Type Department Care Team (Late st Contact Info) Description 07/06/2025 10:30 AM CDT Lab [facility] Laboratory [address] [place] [address] 07/13/2025 11:00 AM CDT Office Visit [address] [address] Lois Cox APRN FEEDER TENDER [address] [place] [address] Lyle Leung MD [address] [place] [address] documented as of this encounter Visit Diagnoses Diagnosis Rheumatoid arthritis, adult (H)- Primary Rheumatoid arthritis Encounter for long-term (current) use of medications Encounter for long-term (current) use of other medications documented in this encounter Additional Health Concerns Infection Onset Date Last Indicated Resolved Time Rule Out COVID-19 07/15/2020 07/15/2020 07/16/2020 5:31 PM CDT Rule Out COVID-19 10/21/2020 10/21/2020 10/22/2020 1:31 PM AIRLINE MECHANIC Rule Out COVID-19 11/12/2021 11/12/2021 11/12/2021 10:12 PM AIRLINE MECHANIC Rule Out COVID-19 01/12/2022 01/12/2022 01/13/2022 2:57 PM CDT COVID-19 01/12/2022 01/12/2022 02/02/2022 11:3 9 PM CDT Rule Out COVID-19 04/10/2022 04/10/2022 04/11/2022 11:19 AM CDT Rule Out COVID-19 07/24/2022 07/24/2022 07/24/2022 11:03 AM AIRLINE MECHANIC Rule Out COVID-19 08/19/2022 08/19/2022 08/19/2022 12:24 PM AIRLINE MECHANIC Influenza 08/19/2022 08/19/2022 08/26/2022 11:4 1 PM AIRLINE MECHANIC Rule Out C-difficile 11/22/2022 11/22/2022 023 8:51 PM AIRLINE MECHANIC Rule Out C-difficile 10/02/2023 10/02/2023 024 9:40 AM AIRLINE MECHANIC Assessment Noted Time PHQ-9 Depression Total Score: 0 07/30/20 18 7:09 AM AIRLINE MECHANIC documented as of this encounter Care Teams Biostatistics Professor Relationship Specialty Start Date End Date Lois Cox APRN FEEDER TENDER [address] [place] [address] PCP - General Nurse Practitioner - Family 12/01/19 Lois Cox APRN FEEDER TENDER [address] [place] [address] Assigned PCP 11/22/19 11/19/20 [place] [address] [place] [address] Assigned PCP 11/20/20 11/26/20 Lois Cox APRN FEEDER TENDER [address] [place] [address] Assigned PCP 11/27/20 Dillon Barksdale MD Assigned Heart and Vascular Provider 02/19/21 03/23/22 [place] [address] [place] [address] [place] [address] Assigned Musculoskeletal Provider 03/10/22 09/06/23 Dar Brady MD Assigned Heart and Vascular Provider 03/24/22 06/12/22 Tonya Limon APRN FEEDER TENDER [address] [place] [address] Assigned Heart and Vascular Provider 06/13/22 06/21/23 Lia Amaya [facility] [address] [place] [address] Pharmacist Pharmacist 11/19/22 11/26/23 Lia Amaya [facility] [address] [place] [address] Assigned MTM Pharmacist 11/24/22 Chalo Gillespie MD [address] [place] [address] Assigned Heart and Vascular Provider 06/22/23 Lyle Leung MD [address] [place] [address] Nephrology 11/18/24 documented as of this encounter
--- OUTSIDE RECORDS SUMMARY | 2025-01-12 18:03 | XMS_ITS | Encounter Summary ---
Author Organization [place] Address [address] [place] [address] Care Team Providers Care Patient Resource Specialist Name Role Phone Farhan Mcguire MD Primary Care Provider [phone] Mariano Abdi MD Primary Care Provider Unavailable To Powell PA-C Primary Care Provider Mariano Abdi MD Primary Care Provider Unavailable Mariano Abdi MD Unavailable UnavaMariano Tony MD Unavailable Unavai Anjelica Ramirez T [facility] Unavailable [phone] Nroma December Yoly MARTÍNEZ Unavailable + [phone] Lois Cox BOAT HOIST OPERATOR HELPER GRINDER SET UP OPERATOR THREAD TOOL Primary Care Provider + Lois Cox BOAT HOIST OPERATOR HELPER GRINDER SET UP OPERATOR THREAD TOOL Unavailable [phone] Wilfred Roberts DO Unavailable [phone] Lois Cox BOAT HOIST OPERATOR HELPER GRINDER SET UP OPERATOR THREAD TOOL Unavailable [phone] Dillon Barksdale MD Unavailable Unavailable Farhan Hinojosa MD Unavailable Dar Brady MD Unavailable Unava iljustice Limon Tonya Rose BOAT HOIST OPERATOR HELPER GRINDER SET UP OPERATOR THREAD TOOL Unavailable [phone] Lia Amaya RPH Unavailable [phone] Lia Amaya RPH Unavailable [phone] Chalo Gillespie MD Unavailable Lyle Leung MD Unavailable Reason for Visit * Reason Onset Date Comments Orders 08/05/2013 Radiology MRI Encounter Details Date Type Department Care Team (Late st Contact Info) Description 08/05/2013 Telephone [facility] [address] [place] [phone] [place] [address] [place] [address] Orders (Radiology MRI) Social History Tobacco Use Types Packs/Day Years Used Date Smoking Tobacco: Never Smokeless Tobacco: Never Alcohol Use Standard Drinks/Week Comments Yes 0 (1 standard drink = 0.6 oz pur e alcohol) occasionally Social Connection and Isolation Panel [NHANES] A nswer Date Recorded Frequency of Communication with Friends and Fami ly Not on file 09/02/2024 How often do you get together with friends or re latives? Once a week 09/02/2024 Attends [employer] Services Not on file 09/02 Active Member of Clubs or Organizations Not on f ile 09/02/2024 Attends Club or Organization Meetings Not on pascale e 09/02/2024 Marital Status Not on file 09/02/2024 PHQ-2 Answer Date Recorded PHQ-2 Score 0 09/02/2024 [facility] Occupat ional Health - Occupational Stress [...] in an abandoned building, in an overnight correction, or couch-surfing.) Yes 09/02/2024 Are you worried [...] Sex Assigned at Male 10/16/2023 11:10 AM HISTORY TEACHER Legal Sex Male 3:09 AM HISTORY TEACHER Gender Identity Male 11/16/2020 12:30 PM HISTORY TEACHER Sexual Orientation Straight 11/16/2020 12 :30 PM HISTORY TEACHER COVID-19 Exposure Response Date Recorded In the last 10 days, have yo u been in contact with someone who was confirmed or suspected to have Coronavirus/COVID-19? No / Unsure 06/17/2023 10:27 AM CDT documented as of this encounter Miscellaneous Notes * Telephone Encounter - Nanda Santiago - 08/05/2013 10:44 AM CST Amandeep from MRI called and needed to have the MRI that is being done today changed from MR LOWER EXT JOINT LEFT to a MR LOWER EXT NON-JOINT LEFT. Made change in the system. No call back needed, just informational. Nanda K - help desk engineer float ORY TEACHER documented in this encounter Plan of Treatment Upcoming Encounters Date Type Department Care Team (Late st Contact Info) Description 07/06/2025 10:30 AM CDT Lab [facility] [address] [place] [phone] 07/13/2025 11:00 AM CDT Office Visit [facility] [place] [address] [facility] [address] [place] [address] Lois Cox, [facility] [address] [place] [address] Lyle Leung MD [address] [place] [phone] documented as of this encounter Visit Diagnoses Not on filedocumented in this encounter Additional Health Concerns Infection Onset Date Last Indicated Resolved Time Rule Out COVID-19 04/27/2020 04/27/2020 04/28/2020 5:31 PM CDT Rule Out COVID-19 07/15/2020 07/15/2020 07/16/2020 5:31 PM CDT Rule Out COVID-19 10/21/2020 10/21/2020 10/22/2020 1:31 PM HISTORY TEACHER Rule Out COVID-19 11/12/2021 11/12/2021 11/12/2021 10:12 PM HISTORY TEACHER Rule Out COVID-19 01/12/2022 01/12/2022 01/13/2022 2:57 PM CDT COVID-19 01/12/2022 01/12/2022 02/02/2022 11:3 9 PM CDT Rule Out COVID-19 04/10/2022 04/10/2022 04/11/2022 11:19 AM CDT Rule Out COVID-19 07/24/2022 07/24/2022 07/24/2022 11:03 AM HISTORY TEACHER Rule Out COVID-19 08/19/2022 08/19/2022 08/19/2022 12:24 PM HISTORY TEACHER Influenza 08/19/2022 08/19/2022 08/26/2022 11:4 1 PM HISTORY TEACHER Rule Out C-difficile 11/22/2022 11/22/2022 023 8:51 PM HISTORY TEACHER Rule Out C-difficile 10/02/2023 10/02/2023 024 9:40 AM HISTORY TEACHER documented as of this encounter Care Teams Patient Resource Specialist Relationship Specialty [place] [address] [place] [address] PCP - General 09/19/09 09/13/13 [place] [address] [place] [address] PCP - General Family Practice 09/14/13 07/30/17 To Powell PA-C [address] [place] [address] PCP - General Physician Farmworker [employer] 07/31/17 08/19/17 [place] [address] [place] [address] PCP - General Family Practice 08/20/17 11/30/19 Mariano Abdi MD PCP - Assigned PCP 12/22/17 11/18/18 Lois Cox APRN GRINDER SET UP OPERATOR THREAD TOOL [address] [place] [address] PCP - General Nurse Practitioner - Family 12/01/19 Mariano Abdi MD Assigned PCP 12/22/17 11/07/19 Anjelica Baker, [facility] [address] [place] [address] Pharmacist Pharmacist 07/28/19 10/11/19 [place] [address] [place] [address] Assigned PCP 11/08/19 11/21/19 Lois Cox APRN GRINDER SET UP OPERATOR THREAD TOOL [address] [place] [address] Assigned PCP 11/22/19 11/19/20 [place] [address] [place] [address] Assigned PCP 11/20/20 11/26/20 Lois Cox APRN GRINDER SET UP OPERATOR THREAD TOOL [address] [place] [address] Assigned PCP 11/27/20 Dillon Barksdale MD Assigned Heart and Vascular Provider 02/19/21 03/23/22 [place] [address] [place] [address] Assigned Musculoskeletal Provider 03/10/22 09/06/23 Dar Brady MD Assigned Heart and Vascular Provider 03/24/22 06/12/22 Tonya Limon APRN GRINDER SET UP OPERATOR THREAD TOOL [address] [place] [address] Assigned Heart and Vascular Provider 06/13/22 06/21/23 Lia Amaya [facility] [address] [place] [address] Pharmacist Pharmacist 11/19/22 11/26/23 Lia Amaya [facility] [address] [place] [address] Assigned MTM Pharmacist 11/24/22 Chalo Gillespie MD [address] [facility] [address] [place] [address] Assigned Heart and Vascular Provider 06/22/23 Lyle Leung MD [address] [place] [address] Nephrology 11/18/24 documented as of this encounter
--- OUTSIDE RECORDS SUMMARY | 2025-01-12 18:03 | XMS_ITS | Encounter Summary ---
Author Organization [place] Address [address] [place] [address] Care Team Providers Care Supervisor International Reservations Name Role Phone Mariano Abdi MD Primary Care Provider Unavailable Mariano Abdi MD Unavailable Unavai shlomo Green December Yoly MARTÍNEZ Unavailable [phone] Lois Cox NETWORK OPERATIONS CENTER ENGINEER FIBER OPTIC ASSEMBLER Primary Care Provider + Lois Cox NETWORK OPERATIONS CENTER ENGINEER FIBER OPTIC ASSEMBLER Unavailable [phone] Wilfred Roberts DO Unavailable [phone] Lois Cox NETWORK OPERATIONS CENTER ENGINEER FIBER OPTIC ASSEMBLER Unavailable [phone] Dillon Barksdale MD Unavailable Unavailable Farhan Hinojosa MD Unavailable Dar Brady MD Unavailable Unava Tonya Lopez NETWORK OPERATIONS CENTER ENGINEER FIBER OPTIC ASSEMBLER Unavailable [phone] Lia Amaya [facility] Unavailable [phone] Lia Amaya [facility] Unavailable [phone] Chalo Gillespie MD Unavailable Lyle Leung MD Unavailable Reason for Visit * Reason Comments Medication Refill Encounter Details Date Type Department Care Team (Late st Contact Info) Description 11/04/[address] [phone] Mariano Abdi MD Medication Refill Social History Tobacco Use Types Packs/Day Years Used Date Smoking Tobacco: Former Cigarettes Q uit: 09/16/1984 Smokeless Tobacco: Never Alcohol Use Standard Drinks/Week Comments Yes 0 (1 standard drink = 0.6 oz pur e alcohol) occasionally PHQ-2 Answer Date Recorded PHQ-2 Score 0 09/25/2018 Sex and Gender Information Value Date Recorded Sex Assigned at Male 10/16/2023 11:10 AM PRINTING BINDERY ASSISTANT Legal Sex Male 3:09 AM PRINTING BINDERY ASSISTANT Gender Identity Male 11/16/2020 12:30 PM PRINTING BINDERY ASSISTANT Sexual Orientation Straight 11/16/2020 12 :30 PM PRINTING BINDERY ASSISTANT documented as of this encounter Miscellaneous Notes * Telephone Encounter - Fani Abarca RN - 11/04/2019 4:42 PM CST Routing refill request to provider for review/approval because: Drug not on the [facility] refill protocol TING BINDERY ASSISTANT * Telephone Encounter - Fani Abarca RN - 11/04/2019 4:42 PM CST Requested Prescriptions Pending Prescriptions Disp Refills ??? BENZONATATE 100 MG PO capsule [Pharmacy Med Name: BENZONATATE 100MG CAPS] 42 capsule 0 Sig: TAKE ONE CAPSULE BY MOUTH THREE TIMES A DAY NEEDED Last Written Prescription Date: 06/08/19 Last Fill Quantity: 42, # refills: 0 Last office visit: 10/22/2019 with prescribing provider: Coming Hay Future Office Visit: Next 5 appointments (look out 90 days) Dec 01, 2019 10:10 AM CDT (Arrive by 9:50 AM) Office Visit with Mariano Abdi MD, Cr Rn Pal 3a [facility] [address] [place] [phone] There is no refill protocol information for this order TING BINDERY ASSISTANT documented in this encounter Plan of Treatment Upcoming Encounters Date Type Department Care Team (Late st Contact Info) Description 07/06/2025 10:30 AM CDT Lab [facility] [address] [place] [address] 07/13/2025 11:00 AM CDT Office Visit [facility] [address] [facility] [address] [place] [phone] Lois Cox, ORLIN FIBER OPTIC ASSEMBLER [address] [place], [place] [phone] Lyle Leung MD [address] [place], [place] [phone] documented as of this encounter Visit Diagnoses Diagnosis Cough documented in this encounter Additional Health Concerns Infection Onset Date Last Indicated Resolved Time Rule Out COVID-19 04/27/2020 04/27/2020 04/28/2020 5:31 PM CDT Rule Out COVID-19 07/15/2020 07/15/2020 07/16/2020 5:31 PM CDT Rule Out COVID-19 10/21/2020 10/21/2020 10/22/2020 1:31 PM PRINTING BINDERY ASSISTANT Rule Out COVID-19 11/12/2021 11/12/2021 11/12/2021 10:12 PM PRINTING BINDERY ASSISTANT Rule Out COVID-19 01/12/2022 01/12/2022 01/13/2022 2:57 PM CDT COVID-19 01/12/2022 01/12/2022 02/02/2022 11:3 9 PM CDT Rule Out COVID-19 04/10/2022 04/10/2022 04/11/2022 11:19 AM CDT Rule Out COVID-19 07/24/2022 07/24/2022 07/24/2022 11:03 AM PRINTING BINDERY ASSISTANT Rule Out COVID-19 08/19/2022 08/19/2022 08/19/2022 12:24 PM PRINTING BINDERY ASSISTANT Influenza 08/19/2022 08/19/2022 08/26/2022 11:4 1 PM PRINTING BINDERY ASSISTANT Rule Out C-difficile 11/22/2022 11/22/2022 023 8:51 PM PRINTING BINDERY ASSISTANT Rule Out C-difficile 10/02/2023 10/02/2023 024 9:40 AM PRINTING BINDERY ASSISTANT Assessment Noted Time PHQ-9 Depression Total Score: 0 07/30/20 18 7:09 AM PRINTING BINDERY ASSISTANT documented as of this encounter Care Teams Supervisor International Reservations Relationship Specialty Start Date End Date Mariano Abdi MD PCP - General Family Practice 08/20/17 11/30/19 Lois Cox APRN FIBER OPTIC ASSEMBLER [address] [place] [place] [address] PCP - General Nurse Practitioner - Family 12/01/19 Mariano Abdi MD Assigned PCP 12/22/17 11/07/19 [place] [address] [place] [address] Assigned PCP 11/08/19 11/21/19 Lois Cox APRN FIBER OPTIC ASSEMBLER [address] [place] [place] [address] Assigned PCP 11/22/19 11/19/20 [place] [address] [place] [address] Assigned PCP 11/20/20 11/26/20 Lois Cox APRN FIBER OPTIC ASSEMBLER [address] [place] [address] Assigned PCP 11/27/20 Dillon Barksdale MD Assigned Heart and Vascular Provider 02/19/21 03/23/22 [place] [address] [place] [address] Assigned Musculoskeletal Provider 03/10/22 09/06/23 Dar Brady MD Assigned Heart and Vascular Provider 03/24/22 06/12/22 Tonya Limon APRN [facility] [address] [place] [address] Assigned Heart and Vascular Provider 06/13/22 06/21/23 Lia Amaya [facility] [address] [place] [address] Pharmacist Pharmacist 11/19/22 11/26/23 Lia Amaya [facility] [address] [place] [address] Assigned MTM Pharmacist 11/24/22 Chalo Gillespie MD [address] [place] [address] Assigned Heart and Vascular Provider 06/22/23 Lyle Leung MD [address] [place] [address] Nephrology 11/18/24 documented as of this encounter
--- OUTSIDE RECORDS SUMMARY | 2025-01-12 18:03 | XMS_ITS | Encounter Summary ---
Author Organization [place] Address [address] [place] [address] Care Team Providers Care Apprentice Carpenter Name Role Phone Mariano Abdi MD Primary Care Provider Unavailable Mariano Abdi MD Unavailable UnavaMariano Tony MD Unavailable Unavai Anjelica Ramirez [facility] Unavailable [phone] Norma December Yoly MARTÍNEZ Unavailable [phone] Lois Cox RESEARCH SPEC SUGAR MILL WORKER Primary Care Provider + Lois Cox APRN SUGAR MILL WORKER Unavailable [phone] Wilfred Roberts DO Unavailable [phone] Lois Cox APRN SUGAR MILL WORKER Unavailable [phone] Dillon Barksdale MD Unavailable Unavailable Farhan Hinojosa MD Unavailable Dar Brady MD Unavailable Unava laith Limon, February RESEARCH SPEC SUGAR MILL WORKER Unavailable [phone] Lia Amaya [facility] Unavailable [phone] Lia Amaya [facility] Unavailable [phone] Chalo Gillespie MD Unavailable Lyle Leung MD Unavailable Reason for Visit * Reason Onset Date Comments Referral 05/21/2018 Medication Thera py Management Encounter Details Date Type Department Care Team (Late st Contact Info) Description 05/21/2018 Telephone [facility] Pharm D Project [address] [place] [address] Mariano Abdi MD Referral (Medication Therapy Management) Social History Tobacco Use Types Packs/Day Years [...] re latives? Once a week 09/02/2024 Attends [employer]S Witness Services Not on file 09/02 Active Member of Clubs or Organizations Not on f ile 09/02/2024 Attends Club or Organization Meetings Not on pascale e 09/02/2024 Marital Status Not on file 09/02/2024 PHQ-2 Answer Date Recorded PHQ-2 Score 0 09/02/2024 [facility] [place] of Occupat ional Health - Occupational Stress [...] in an abandoned building, in an overnight half-way, or couch-surfing.) Yes 09/02/2024 Are you worried [...] Sex Assigned at Male 10/16/2023 11:10 AM SIZE STAMPER Legal Sex Male 3:09 AM SIZE STAMPER Gender Identity Male 11/16/2020 12:30 PM SIZE STAMPER Sexual Orientation Straight 11/16/2020 12 :30 PM SIZE STAMPER COVID-19 Exposure Response Date Recorded In the last 10 days, have yo u been in contact with someone who was confirmed or suspected to have Coronavirus/COVID-19? No / Unsure 06/17/2023 10:27 AM CDT documented as of this encounter Miscellaneous Notes * Telephone Encounter - Isha Ramachandran - 05/21/2018 2:42 PM CDT MTM referral from: recruitment MTM referral outreach attempt #1 on May 21, 2018 at 2:42 PM Outcome: Left Message with . Patient will call back to schedule appointment. Isha Ramachandran MT Coordinator Control Panel Operator documented in this encounter Plan of Treatment Upcoming Encounters Date Type Department Care Team (Late st Contact Info) Description 07/06/2025 10:30 AM CDT Lab [facility] [address] [place] [address] 07/13/2025 11:00 AM CDT Office Visit [facility] [place] [address] [facility] [address] [place] [phone] Lois Cox, ORLIN SUGAR MILL WORKER [address] [place] [place] [address] Lyle Leung MD [address] [place] [address] documented as of this encounter Visit Diagnoses Not on filedocumented in this encounter Additional Health Concerns Infection Onset Date Last Indicated Resolved Time Rule Out COVID-19 04/27/2020 04/27/2020 04/28/2020 5:31 PM CDT Rule Out COVID-19 07/15/2020 07/15/2020 07/16/2020 5:31 PM CDT Rule Out COVID-19 10/21/2020 10/21/2020 10/22/2020 1:31 PM SIZE STAMPER Rule Out COVID-19 11/12/2021 11/12/2021 11/12/2021 10:12 PM SIZE STAMPER Rule Out COVID-19 01/12/2022 01/12/2022 01/13/2022 2:57 PM CDT COVID-19 01/12/2022 01/12/2022 02/02/2022 11:3 9 PM CDT Rule Out COVID-19 04/10/2022 04/10/2022 04/11/2022 11:19 AM CDT Rule Out COVID-19 07/24/2022 07/24/2022 07/24/2022 11:03 AM SIZE STAMPER Rule Out COVID-19 08/19/2022 08/19/2022 08/19/2022 12:24 PM SIZE STAMPER Influenza 08/19/2022 08/19/2022 08/26/2022 11:4 1 PM SIZE STAMPER Rule Out C-difficile 11/22/2022 11/22/2022 023 8:51 PM SIZE STAMPER Rule Out C-difficile 10/02/2023 10/02/2023 01/19/2 024 9:40 AM SIZE STAMPER Assessment Noted Time PHQ-9 Depression Total Score: 0 06/11/20 17 10:37 AM CDT documented as of this encounter Care Teams Apprentice Carpenter Relationship Specialty Start Date End Date Mariano Abdi MD PCP - General Family Practice 08/20/17 11/30/19 Mariano Abdi MD PCP - Assigned PCP 12/22/17 11/18/18 Lois Cox APRN SUGAR MILL WORKER [address] [place] [address] PCP - General Nurse Practitioner - Family 12/01/19 Mariano Abdi MD Assigned PCP 12/22/17 11/07/19 [facility] [address] [place] [address] Pharmacist Pharmacist 07/28/19 10/11/19 [place] [address] [place] [address] Assigned PCP 11/08/19 11/21/19 Lois Cox APRN SUGAR MILL WORKER [address] [place] [address] Assigned PCP 11/22/19 11/19/20 [place] [address] [place] [address] Assigned PCP 11/20/20 11/26/20 Lois Cox APRN SUGAR MILL WORKER [address] [place] [address] Assigned PCP 11/27/20 Dillon Barksdale MD Assigned Heart and Vascular Provider 02/19/21 03/23/22 [place] [address] [place] [address] [place] [address] Assigned Musculoskeletal Provider 03/10/22 09/06/23 Dar Brady MD Assigned Heart and Vascular Provider 03/24/22 06/12/22 Tonya Limon APRN [facility] [address] [place] [address] Assigned Heart and Vascular Provider 06/13/22 06/21/23 Lia Amaya [facility] [address] [place] [address] Pharmacist Pharmacist 11/19/22 11/26/23 Lia Amaya [facility] [address] [place] [address] Assigned MTM Pharmacist 11/24/22 Chalo Gillespie MD [address] [place] [address] Assigned Heart and Vascular Provider 06/22/23 Lyle Leung MD [address] [place] [address] Nephrology 11/18/24 documented as of this encounter
--- OUTSIDE RECORDS SUMMARY | 2025-01-12 18:03 | XMS_ITS | Encounter Summary ---
Author Organization [facility] Address [address] [place] [address] Care Team Providers Care Tax Investigator Name Role Phone Mariano Abdi MD Primary Care Provider Unavailable Mariano Abdi MD Unavailable UnavaMariano Tony MD Unavailable UnavaAnjelica Estrada [facility] Unavailable [phone] Norma December Yoly MARTÍNEZ Unavailable [phone] Lois Cox TOOL CRIB LEAD TRAFFIC INVESTIGATOR Primary Care Provider + Lois Cox APRN TRAFFIC INVESTIGATOR Unavailable [phone] Wilfred Roberts DO Unavailable Lois Cox APRN TRAFFIC INVESTIGATOR Unavailable [phone] Dillon Barksdale MD Unavailable Unavailable Farhan Hinojosa MD Unavailable Dar Brady MD Unavailable Unava iljustice Limon, February TOOL CRIB LEAD TRAFFIC INVESTIGATOR Unavailable [phone] Lia Amaya [facility] Unavailable [phone] Lia Amaya [facility] Unavailable [phone] Chalo Gillespie MD Unavailable Lyle Leung MD Unavailable Encounter Details Date Type Department Care Team (Late st Contact Info) Description 05/14/2018 MyC Medical Advice [facility] [address] [place] [phone] Sujey Landon, [facility] [address] [place] [address] Social History Tobacco Use Types Packs/Day Years Used Date Smoking Tobacco: Former Cigarettes Q uit: 09/16/1984 Smokeless Tobacco: Never Alcohol Use Standard Drinks/Week Comments Yes 0 (1 standard drink = 0.6 oz pur e alcohol) occasionally Sex and Gender Information Value Date Recorded Sex Assigned at Male 10/16/2023 11:10 AM SCALE TECHNICIAN Legal Sex Male 3:09 AM SCALE TECHNICIAN Gender Identity Male 11/16/2020 12:30 PM SCALE TECHNICIAN Sexual Orientation Straight 11/16/2020 12 :30 PM SCALE TECHNICIAN documented as of this encounter Plan of Treatment Upcoming Encounters Date Type Department Care Team (Late st Contact Info) Description 07/06/2025 10:30 AM CDT Lab [facility] [address] [place] [phone] 07/13/2025 11:00 AM CDT Office Visit [facility] [address] [facility] [address] [place] [address] Lois Cox APRN TRAFFIC INVESTIGATOR [address] [facility] [place] [address] Lyle Leung MD [address] [place] [address] documented as of this encounter Visit Diagnoses Not on filedocumented in this encounter Additional Health Concerns Infection Onset Date Last Indicated Resolved Time Rule Out COVID-19 04/27/2020 04/27/2020 04/28/2020 5:31 PM CDT Rule Out COVID-19 07/15/2020 07/15/2020 07/16/2020 5:31 PM CDT Rule Out COVID-19 10/21/2020 10/21/2020 10/22/2020 1:31 PM SCALE TECHNICIAN Rule Out COVID-19 11/12/2021 11/12/2021 11/12/2021 10:12 PM SCALE TECHNICIAN Rule Out COVID-19 01/12/2022 01/12/2022 01/13/2022 2:57 PM CDT COVID-19 01/12/2022 01/12/2022 02/02/2022 11:3 9 PM CDT Rule Out COVID-19 04/10/2022 04/10/2022 04/11/2022 11:19 AM CDT Rule Out COVID-19 07/24/2022 07/24/2022 07/24/2022 11:03 AM SCALE TECHNICIAN Rule Out COVID-19 08/19/2022 08/19/2022 08/19/2022 12:24 PM SCALE TECHNICIAN Influenza 08/19/2022 08/19/2022 08/26/2022 11:4 1 PM SCALE TECHNICIAN Rule Out C-difficile 11/22/2022 11/22/2022 023 8:51 PM SCALE TECHNICIAN Rule Out C-difficile 10/02/2023 10/02/2023 024 9:40 AM SCALE TECHNICIAN Assessment Noted Time PHQ-9 Depression Total Score: 0 06/11/20 17 10:37 AM CDT documented as of this encounter Care Teams Tax Investigator Relationship Specialty Start Date End Date Mariano Abdi MD PCP - General Family Practice 08/20/17 11/30/19 Mariano Abdi MD PCP - Assigned PCP 12/22/17 11/18/18 Lois Cxo APRN TRAFFIC INVESTIGATOR [address] [facility] [address] PCP - General Nurse Practitioner - Family 12/01/19 Mariano Abdi MD Assigned PCP 12/22/17 11/07/19 Anjelica Baker, [facility] [address] [place] [address] Pharmacist Pharmacist 07/28/19 10/11/19 [place] [address] [place] [address] Assigned PCP 11/08/19 11/21/19 Lois Cox APRN TRAFFIC INVESTIGATOR [address] [facility] [place] [address] Assigned PCP 11/22/19 11/19/20 [place] [address] [place] [address] Assigned PCP 11/20/20 11/26/20 Lois Cox APRN TRAFFIC INVESTIGATOR [address] [facility] [address] Assigned PCP 11/27/20 Dillon Barksdale MD Assigned Heart and Vascular Provider 02/19/21 03/23/22 [place] [address] [place] [address] Assigned Musculoskeletal Provider 03/10/22 09/06/23 Dar Brady MD Assigned Heart and Vascular Provider 03/24/22 06/12/22 Tonya Limon APRN TRAFFIC INVESTIGATOR [address] [place] [address] Assigned Heart and Vascular Provider 06/13/22 06/21/23 Lia Amaya, [facility] [address] [place] [address] Pharmacist Pharmacist 11/19/22 11/26/23 Lia Amaya, [facility] [address] [place] [address] Assigned MTM Pharmacist 11/24/22 Chalo Gillespie MD [address] [facility] [address] [place], [place] [address] Assigned Heart and Vascular Provider 06/22/23 Lyle Leung MD [address] [place], [place] [id number] Nephrology 11/18/24 documented as of this encounter
--- OUTSIDE RECORDS SUMMARY | 2025-01-12 18:03 | XMS_ITS | Encounter Summary ---
Author Organization [facility] Address [address] [place] [address] Care Team Providers Care Cvicu Nurse Name Role Phone Lois Cox APRN SERVICE DIRECTOR Primary Care Provider + Lois Cox APRN SERVICE DIRECTOR Unavailable [phone] Chalo Gillespie MD Unavailable Lyle Leung MD Unavailable Encounter Details Date Type Department Care Team (Late st Contact Info) Description 08/10/2024 MyC Medical Advice [address] [address] Tuan Robles, JOEY Social History Tobacco Use Types Packs/Day Years Used Date Smoking Tobacco: Former Cigarettes 0.5 10 0 09/16/1974 - 09/16/1984 Passive Smoke Exposure: Never Smokeless Tobacco: Never Alcohol Use Standard Drinks/Week Comments Not Currently 0 (1 standard drink = 0.6 oz pur e alcohol) PHQ-2 Answer Date Recorded PHQ-2 Score 0 07/02/2023 Adolescent Education Answer Date Record ed Getting School Help Needed Not on file 06/07 Sex and Gender Information Value Date Recorded Sex Assigned at Male 10/16/2023 11:10 AM PHOTOTYPESETTING EQUIPMENT MONITOR Legal Sex Male 3:09 AM PHOTOTYPESETTING EQUIPMENT MONITOR Gender Identity Male 11/16/2020 12:30 PM PHOTOTYPESETTING EQUIPMENT MONITOR Sexual Orientation Straight 11/16/2020 12 :30 PM PHOTOTYPESETTING EQUIPMENT MONITOR documented as of this encounter Plan of Treatment Upcoming Encounters Date Type Department Care Team (Late st Contact Info) Description 07/06/2025 10:30 AM CDT Lab [facility] [address] [place] [address] 07/13/2025 11:00 AM CDT Office Visit [facility] [address] [facility] [address] [place] [phone] Lois Cox APRN SERVICE DIRECTOR [address] [place] [address] Lyle Leung MD [address] [place] [address] documented as of this encounter Visit Diagnoses Not on filedocumented in this encounter Additional Health Concerns Assessment Noted Time PHQ-9 Depression Total Score: 2 07/02/20 11:09 AM CDT documented as of this encounter Care Teams Cvicu Nurse Relationship Specialty Start Date End Date Lois Cox APRN SERVICE DIRECTOR [address] [place] [address] PCP - General Nurse Practitioner - Family 12/01/19 Lois Cox APRN SERVICE DIRECTOR [address] [place] [address] Assigned PCP 11/27/20 Chalo Gillespie MD [address] [place] [address] Assigned Heart and Vascular Provider 06/22/23 Lyle Leung MD [address] [place], [place] [address] Nephrology 11/18/24 documented as of this encounter
--- OUTSIDE RECORDS SUMMARY | 2025-01-12 18:03 | XMS_ITS | Clinical Summary ---
Author Organization [facility] Address [address], [place] [address] Care Team Providers Care Horse Show Judge Name Role Phone Mariano Kaur DC Primary Care Provider Source Comments You are receiving this document as you are listed as the primary care provider,follow-up provider, or the patient has been referred to you for consultation.This is in compliance with the Medicare and[facility] Campus[facility] EHR Incentive Program,which states Providers who transition their patient to another setting of careor provider of care or refers their patient to another provider of care shouldprovide summary care record for each transition of care or referral. [facility] Allergies Active Allergy Reactions Criticality Noted Date [...] 3 9 Active XELJANZ XR 11 MG [id number]: Rheumatoid arthritis involving both feet with negative [...] IIV3 (Trivalent) F alex Spicer, 65+ Yrs (85[address]) 07/05/2017 Social History Tobacco Use Types Packs/Day [...] 36.4 C (97.5 F) 11/07/2018 12:35 PM TRANSITIONS MANAGER RN Respiratory Rate 16 11/07/2018 12:35 PM TRANSITIONS MANAGER RN Oxygen Saturation 95% 11/07/2018 12:35 PM TRANSITIONS MANAGER RN Inhaled Oxygen Concentration - - Weight 108.9 [...] this topic Medical Devices Implanted Type Area [employer] Executive Device Identifier Shelf Expiration Date Model / Serial / Lot Scr Kaushal Sftp Mini [facility] 2.0x14 - [id number] Implanted:Qty: 2 on 11/07/2018 by [facility]: [employer] [id number] / 0 / 0 Insurance MEDICARE ADVANTAGE MEDICARE ADVANTAGE Care Teams Horse Show Judge Relationship Specialty Start Date End Date Mariano Kaur DC [address] [place] [address] PCP - General Chiropractic 08/07/16
--- OUTSIDE RECORDS SUMMARY | 2025-01-12 18:03 | XMS_ITS | Encounter Summary ---
Author Organization [facility] Address [address] [place] [address] Care Team Providers Care Superintendent Seed Mill Name Role Phone Lois Cox CONVEYOR MECHANIC DUMP WORKER Primary Care Provider + Lois Cox APRN DUMP WORKER Unavailable [phone] Farhan Hinojosa MD Unavailable Dar Brady MD Unavailable Unava iljustice Limon Tonya E CONVEYOR MECHANIC [facility] Unavailable [phone] Lia Amaya [facility] Unavailable [phone] Lia Amaya [facility] Unavailable [phone] Chalo Gillespie MD Unavailable Lyle Leung MD Unavailable Encounter Details Date Type Department Care Team (Late st Contact Info) Description 04/05/2022 MyC Medical Advice [facility] [place] [address] [facility] [address] [place] [address] Katherine Bauer, ATC Social History Tobacco Use Types Packs/Day Years Used Date Smoking Tobacco: Former Cigarettes 0.5 10 0 09/16/1974 - 09/16/1984 Smokeless Tobacco: Never Alcohol Use Standard Drinks/Week Comments Yes 0 (1 standard drink = 0.6 oz pur e alcohol) occasionally PHQ-2 Answer Date Recorded PHQ-2 Score 0 01/15/2022 Sex and Gender Information Value Date Recorded Sex Assigned at Male 10/16/2023 11:10 AM REHAB NURSE Legal Sex Male 3:09 AM REHAB NURSE Gender Identity Male 11/16/2020 12:30 PM REHAB NURSE Sexual Orientation Straight 11/16/2020 12 :30 PM REHAB NURSE COVID-19 Exposure Response Date Recorded In the last 10 days, have yo u been in contact with someone who was confirmed or suspected to have Coronavirus/COVID-19? No / Unsure 03/29/2022 2:20 PM CDT documented as of this encounter Plan of Treatment Upcoming Encounters Date Type Department Care Team (Late st Contact Info) Description 07/06/2025 10:30 AM CDT Lab [facility] [address] [place] [address] 07/13/2025 11:00 AM CDT Office Visit [facility] [address] [facility] [address] [place] [phone] Lois Cox, ORLIN DUMP WORKER [address] [place] [address] Lyle Leung MD [address] [place], [place] [phone] documented as of this encounter Visit Diagnoses Not on filedocumented in this encounter Additional Health Concerns Infection Onset Date Last Indicated Resolved Time Rule Out COVID-19 04/10/2022 04/10/2022 04/11/2022 11:19 AM CDT Rule Out COVID-19 07/24/2022 07/24/2022 07/24/2022 11:03 AM REHAB NURSE Rule Out COVID-19 08/19/2022 08/19/2022 08/19/2022 12:24 PM REHAB NURSE Influenza 08/19/2022 08/19/2022 08/26/2022 11:4 1 PM REHAB NURSE Rule Out C-difficile 11/22/2022 11/22/2022 023 8:51 PM REHAB NURSE Rule Out C-difficile 10/02/2023 10/02/2023 024 9:40 AM REHAB NURSE Assessment Noted Time PHQ-9 Depression Total Score: 0 01/16/20 22 8:33 AM CDT documented as of this encounter Care Teams Superintendent Seed Mill Relationship Specialty Start Date End Date Lois Cox APRN DUMP WORKER [address] [place] [address] PCP - General Nurse Practitioner - Family 12/01/19 Lois Cox APRN DUMP WORKER [address] [place] [address] Assigned PCP 11/27/20 [place] [address] [place] [address] [place] [address] Assigned Musculoskeletal Provider 03/10/22 09/06/23 Dar Brady MD Assigned Heart and Vascular Provider 03/24/22 06/12/22 Tonya [place] APRN DUMP WORKER [address] [place] [address] Assigned Heart and Vascular Provider 06/13/22 06/21/23 Lia Amaya [facility] [address] [place] [address] Pharmacist Pharmacist 11/19/22 11/26/23 Lia Amaya [facility] [address] [place] [address] Assigned MTM Pharmacist 11/24/22 Chalo Gillespie MD [address] [place] [address] Assigned Heart and Vascular Provider 06/22/23 Lyle Leung MD [address] [place], [place] [address] Nephrology 11/18/24 documented as of this encounter
[2025-01-12] MEDS: CEFEPIME HCL 1 GM in 0.9 % SODIUM CHLORIDE Mini-bag 100 ML IVPB (18:06)
--- NOTE | 2025-01-12 18:31 | CRLHL7_ITS ---
For Patients: As a result of the Century Cures Act, medical imaging exams and procedure reports are released immediately into your electronic medical record. You may view this report before your referring provider. If you have questions, please contact your health care provider. INDICATION: FEVER, COUGH, LEG PAIN, LIKELY PNEUMONIA. TECHNIQUE: CT chest PE was acquired with 95 cc Isovue 370 IV contrast. COMPARISON: None. FINDINGS: Heart and vasculature: Contrast opacification of the pulmonary arterial tree is adequate. No sign of pulmonary embolism. Heart size is normal. Thoracic aorta and pulmonary artery are normal in caliber. Coronary artery and thoracic aorta atherosclerotic calcification. Lungs and pleura: Patchy nodular and ground-glass opacities the lungs, greatest within bases. No pleural effusion or pneumothorax. Lymph nodes/mediastinum: No mediastinal, hilar, or axillary adenopathy. Calcified left hilar lymph node. Chest wall: No masses. Upper abdomen: No acute or significant findings. Multiple calcified splenic granulomata. Bones: Chronic mild T8 compression fracture. No acute bony abnormality. IMPRESSION: 1. No pulmonary embolism. 2. Multilobar pneumonia. Please note that all CT scans at this facility use dose modulation, iterative reconstruction, and/or weight-based dosing when appropriate to reduce radiation dose to as low as reasonably achievable. Dictated by Dar Little MD @ 01/12/2025 7:29:11 PM (Electronically Signed)
[2025-01-12] MEDS: ACETAMINOPHEN 500 MG TABLET 1000 MG PO (18:33)
[2025-01-12] MEDS: VANCOMYCIN 2 GM/400 ML 2 GM/400 ML PIGGYBACK IVPB (18:34)
[2025-01-12] MEDS: 0.9 % SODIUM CHLORIDE 1000 ml 1,000 ML IV (19:05)
[2025-01-12 19:45] LABS: Troponin, Point-of-Care* 1.93 ng/ml (0.01-0.04)
[2025-01-12] MEDS: 0.9 % SODIUM CHLORIDE 500 ML 500 ML 1000 ML IV (19:51)
[2025-01-12] MEDS: HYDROCORTISONE SOD SUCCINATE 50 MG/ML inj IVP (20:22)
[2025-01-12] MEDS: 0.9 % SODIUM CHLORIDE 1000 ml 1,000 ML 125 ML IV (21:43)
--- NOTE | 2025-01-12 23:37 | P.IMHP_ITS ---
Assessment and Plan Assessment and plan (1) Septic shock: Problem comment: Patient presented hypotensive, tachycardic, febrile, hypoxic, tachypneic with altered mental status due to pneumonia. Briefly required norepinephrine along with fluid resuscitation and steroids. Septic shock now resolved Status: Acute (2) Acute hypoxemic respiratory failure: Problem comment: Due to community acquired pneumonia Status: Acute (3) Community acquired pneumonia: Problem comment: Initiate treatment with ceftriaxone and azithromycin. Obtain MRSA screen. Patient has already received vancomycin for today. Patient is immunocompromised. No obvious risk factors for MRSA or Pseudomonas infection Status: Acute (4) Non-STEMI (non-ST elevated myocardial infarction): Problem comment: Records indicate non-STEMI in July of 2022. Apparently had coronary angiogram at that time as well. Has current elevated troponin likely related to myocardial demand ischemia with underlying coronary disease. Trend. Obtain echo. Status: Acute (5) Stage 3 chronic kidney disease: Problem comment: Probably stable Status: Acute (6) Long-term use of immunosuppressant medication: Problem comment: Hold pending clinical course Status: Acute (7) Metabolic encephalopathy: Problem comment: Likely due to sepsis. Appears to be resolving. Status: Acute (8) Total bilirubin, elevated: Problem comment: Records indicate this may be a chronic problem. Will trend as it could be acute elevation due to sepsis Status: Acute Plan 79-year-old male admitted to the hospital with septic shock and hypoxic respiratory failure due to community-acquired pneumonia. Critically ill in the emergency department. Requiring pressors. Unable to transfer initially and patient did improve to get off pressors so was admitted here for ongoing care. Will care for him in the CCU tonight with current severe illness. Total Time Spent Total Time Spent: Total time spent in critical care evaluation and management is 95 minutes Hospitalist- H&P: HPI History of Present Illness Date Seen: 01/12/25 Chief complaint: 100.5 fever, illness Narrative: Gino Toussaint is a 79 year old male with rheumatoid arthritis on immunosuppression admitted to the hospital with a 1 and a half day history of profound weakness, confusion and fever. Patient is unable to give much information about the events leading to his hospitalization. He reports he was in his usual state of health on Saturday. When he awoke Saturday morning, yesterday he is feeling quite weak and really did not get out of bed yesterday. He had some chills and a little bit of cough apparently also had 1 emesis. He then apparently became confused and was not thinking straight. He was unable to walk. At some point today his insisted that he come to the emergency room. In our emergency department he was found to be hypotensive febrile tachypneic and hypoxic. He was treated with oxygen. He received fluid resuscitation and Solu-Medrol but remained hypotensive. He was placed on norepinephrine for pressure support. Eventually he was able to wean off of norepinephrine. He developed a relatively regular supraventricular tachycardia in the 120s to 140s and then return to a normal sinus rhythm in the 60s and 70s. Cultures were obtained. He was treated with vancomycin and cefepime. He had elevation in the troponin without chest pain. With his SVT he had ST depression but no other marked electrocardiogram abnormalities. When he was requiring norepinephrine decision was made to transfer him. He was unable to be transferred as requested and did clinically improve so he was admitted in [facility]. Past history is notable for rheumatoid arthritis for which he is treated with prednisone 5 mg daily, tofacitinib 11 mg daily and leflunomide 20 mg daily. Review of Systems Narrative: He reports feeling well prior to the last day and a half. No known exposures. is currently on available to give additional details of recent symptoms. These are obtained from the medical record. [facility] Medical History (Updated 01/13/25 @ 00:04 by Scot Dumont MD) Total bilirubin, elevated ?R17 - Unspecified jaundice (ICD-10) Peripheral neuropathy ?G62.9 - Polyneuropathy, unspecified (ICD-10) Lumbar radiculopathy ?M54.16 - Radiculopathy, lumbar region (ICD-10) Chronic pain ?G89.29 - Other chronic pain (ICD-10) Stage 3 chronic kidney disease ?N18.30 - Chronic kidney disease, stage 3 unspecified (ICD-10) Non-STEMI (non-ST elevated myocardial infarction) ?I21.4 - Non-ST elevation (NSTEMI) myocardial infarction (ICD-10) Hypertension ?I10 - Essential (primary) hypertension (ICD-10) Hyperlipidemia ?E78.5 - Hyperlipidemia, unspecified (ICD-10) Rheumatoid arthritis ?M06.9 - Rheumatoid arthritis, unspecified (ICD-10) Surgical History (Updated 01/12/25 @ 23:55 by Scot Dumont MD) History of hernia repair ?Z98.890 - Other specified postprocedural states (ICD-10) ?Z87.19 - Personal history of other diseases of the digestive system (ICD-10) History of arthrodesis ?Z98.1 - Arthrodesis status (ICD-10) History of bunionectomy ?Z98.890 - Other specified postprocedural states (ICD-10) Family History (Updated 01/12/25 @ 23:56 by Scot Dumont MD) Brother Heart disease High blood pressure Father Heart disease High blood pressure Social History (Updated 01/12/25 @ 23:56 by Scot Dumont MD) Narrative: [place] history of smoking more than 50 years ago. He does not drink alcohol having quit a couple years ago. Code status is DNR. What is your current living situation?: I presently have a place to live Problems where you live: no known problems Problems where you live details: NA In the past 12 months, utilities in danger of being shut off: no In past 12 months, lack of transportation kept you from medical appts, meetings, work, or getting things needed for daily living: no In the past 12 mos, have been you worried that your food would run out before you had money to buy more?: never true In the past 12 mos, the food you bought just didn't last and you didn't have money to buy more?: never true Highest level of school completed/degree received: high school graduate Smoking Status: Never smoker How often do you have a drink containing alcohol: never AUDIT-C Alcohol total score: 0 Non-prescribed substance use: denies use How often does anyone, including family, friends and others, physically hurt you : never How often does anyone, including family, friends and others, insult or talk down to you: never How often does anyone, including family, friends and others, threaten you with harm: never How often does anyone, including family, friends and others, scream or curse at you: never service: No Meds Home Medications and Allergies Home Medications ?Medication ?Instructions ?Recorded ?Confirmed ?Type duloxetine 20 mg capsule,delayed 20 mg PO BID 01/12/25 01/12/25 History release ezetimibe 10 mg tablet 10 mg PO DAILY 01/12/25 01/12/25 History famotidine 20 mg tablet 20 mg PO BID 01/12/25 01/12/25 History gabapentin 600 mg tablet 600 - 1,200 mg PO Q12H 01/12/25 01/12/25 History leflunomide 20 mg tablet 20 mg PO DAILY 01/12/25 01/12/25 History lidocaine-prilocaine 2.5 %-2.5 % 1 applic topical TID PRN 01/12/25 01/12/25 History topical cream losartan 25 mg tablet 25 mg PO DAILY 01/12/25 01/12/25 History metoprolol succinate 50 mg 25 mg PO DAILY 01/12/25 01/12/25 History tablet,extended release 24 hr pantoprazole 40 mg tablet,delayed 40 mg PO DAILY 01/12/25 01/12/25 History release prednisone 20 mg tablet 20 mg PO DAILY 01/12/25 01/12/25 History prednisone 5 mg tablet 5 mg PO DAILY 01/12/25 01/12/25 History ramelteon 8 mg tablet 8 mg PO QPM 01/12/25 01/12/25 History rosuvastatin 20 mg tablet 20 mg PO QPM 01/12/25 01/12/25 History tofacitinib 11 mg tablet,extended 11 mg PO DAILY 01/12/25 01/12/25 History release 24 hr (Xeljanz XR) Allergies Allergy/AdvReac Type Severity Reaction Status Date / Time ampicillin Allergy Unknown Verified 01/12/25 18:55 bee venom protein (honey bee) Allergy Unknown Verified 01/12/25 18:55 Exam Narrative: Exam Narrative: He is alert and oriented to his circumstances. He gives his own history but is unable to recall much of what has happened in the last day. Head is without trauma. Eyes normal. Oropharynx with small airway. Neck is supple without mass or adenopathy. No jugular venous distension. Respirations are clear to auscultation except for occasional bibasilar crackles. No wheezing. No consolidation. Cardiovascular: S1, S2, regular rate and rhythm. No murmur gallop or rub. Abdomen: Bowel sounds active. Abdomen is soft without tenderness or mass. External genitalia normal. Upper extremities are somewhat cool to touch with intact pulses but somewhat sluggish capillary refill. His feet are cold to touch bilaterally. I cannot palpate pedal pulses. Const: Vital Signs, click to edit/add: Vital Signs - 24 hr 01/12/25 16:45 01/12/25 16:50 01/12/25 17:00 Temperature 100.6 F H Pulse Rate Pulse Rate [Left R adial] Pulse Rate [Pulse Oximeter] 81 Respiratory Rate 32 H Blood Pressure Blood Pressure [Le ft Arm] Blood Pressure [Ri ght Upper Arm] 80/46 L Pulse Oximetry 86 L 82 L 90 Oxygen Delivery Me thod Room Air Room Air Nasal Cannula Oxygen Flow Rate 2 01/12/25 17:07 01/12/25 17:15 01/12/25 17:17 Temperature Pulse Rate 70 67 66 Pulse Rate [Left R adial] Pulse Rate [Pulse Oximeter] Respiratory Rate 25 H 34 H Blood Pressure 124/45 L Blood Pressure [Le ft Arm] Blood Pressure [Ri ght Upper Arm] Pulse Oximetry 91 93 Oxygen Delivery Me thod Oxygen Flow Rate 01/12/25 17:25 01/12/25 17:30 01/12/25 17:32 Temperature Pulse Rate 70 82 Pulse Rate [Left R adial] Pulse Rate [Pulse Oximeter] Respiratory Rate 26 H 24 Blood Pressure 121/60 Blood Pressure [Le ft Arm] Blood Pressure [Ri ght Upper Arm] Pulse Oximetry 93 90 90 Oxygen Delivery Me thod Nasal Cannula Nasal Cannula Oxygen Flow Rate 2 2 01/12/25 17:33 01/12/25 17:45 01/12/25 18:00 Temperature Pulse Rate 74 81 114 H Pulse Rate [Left R adial] Pulse Rate [Pulse Oximeter] Respiratory Rate 27 H 29 H 29 H Blood Pressure Blood Pressure [Le ft Arm] Blood Pressure [Ri ght Upper Arm] Pulse Oximetry 88 89 89 Oxygen Delivery Me thod Oxygen Flow Rate 01/12/25 18:02 01/12/25 18:15 01/12/25 18:16 Temperature 99.9 F H Pulse Rate 112 H Pulse Rate [Left R adial] Pulse Rate [Pulse Oximeter] Respiratory Rate 33 H 36 H 29 H Blood Pressure 119/70 120/97 H Blood Pressure [Le ft Arm] Blood Pressure [Ri ght Upper Arm] Pulse Oximetry 84 L 81 L Oxygen Delivery Me thod Oxygen Flow Rate 01/12/25 18:30 01/12/25 18:31 01/12/25 18:32 Temperature Pulse Rate 142 H 134 H 132 H Pulse Rate [Left R adial] Pulse Rate [Pulse Oximeter] Respiratory Rate 25 H 28 H 27 H Blood Pressure 106/76 Blood Pressure [Le ft Arm] Blood Pressure [Ri ght Upper Arm] Pulse Oximetry 92 93 95 Oxygen Delivery Me thod Oxygen Flow Rate 01/12/25 19:00 01/12/25 19:01 01/12/25 19:02 Temperature Pulse Rate 132 H 135 H 134 H Pulse Rate [Left R adial] Pulse Rate [Pulse Oximeter] Respiratory Rate 33 H 28 H 16 Blood Pressure 120/67 103/64 Blood Pressure [Le ft Arm] Blood Pressure [Ri ght Upper Arm] Pulse Oximetry 90 90 90 Oxygen Delivery Me thod Oxygen Flow Rate 01/12/25 19:15 01/12/25 19:16 01/12/25 19:22 Temperature 99.3 F Pulse Rate 135 H 135 H 135 H Pulse Rate [Left R adial] Pulse Rate [Pulse Oximeter] Respiratory Rate 26 H 20 33 H Blood Pressure 93/60 68/42 L Blood Pressure [Le ft Arm] Blood Pressure [Ri ght Upper Arm] Pulse Oximetry 90 90 89 Oxygen Delivery Me thod Oxygen Flow Rate 01/12/25 19:23 01/12/25 19:24 01/12/25 19:28 Temperature Pulse Rate 136 H 133 H 135 H Pulse Rate [Left R adial] Pulse Rate [Pulse Oximeter] Respiratory Rate 22 30 H 27 H Blood Pressure 85/56 L 81/52 L Blood Pressure [Le ft Arm] Blood Pressure [Ri ght Upper Arm] Pulse Oximetry 90 90 89 Oxygen Delivery Me thod Oxygen Flow Rate 01/12/25 19:30 01/12/25 19:32 01/12/25 19:37 Temperature Pulse Rate 134 H 135 H 137 H Pulse Rate [Left R adial] Pulse Rate [Pulse Oximeter] Respiratory Rate 29 H 27 H 30 H Blood Pressure 86/57 L 136/82 Blood Pressure [Le ft Arm] Blood Pressure [Ri ght Upper Arm] Pulse Oximetry 90 91 91 Oxygen Delivery Me thod Oxygen Flow Rate 01/12/25 19:38 01/12/25 19:42 01/12/25 19:45 Temperature 99.3 F Pulse Rate 135 H 136 H Pulse Rate [Left R adial] Pulse Rate [Pulse Oximeter] Respiratory Rate 11 L 25 H Blood Pressure 129/79 Blood Pressure [Le ft Arm] Blood Pressure [Ri ght Upper Arm] Pulse Oximetry 92 91 Oxygen Delivery Me thod Oxygen Flow Rate 01/12/25 19:45 01/12/25 19:47 01/12/25 19:51 Temperature Pulse Rate 135 H 136 H 136 H Pulse Rate [Left R adial] Pulse Rate [Pulse Oximeter] Respiratory Rate 24 23 23 Blood Pressure 115/68 123/70 Blood Pressure [Le ft Arm] Blood Pressure [Ri ght Upper Arm] Pulse Oximetry 91 91 92 Oxygen Delivery Me thod Oxygen Flow Rate 01/12/25 19:56 01/12/25 19:57 01/12/25 20:00 Temperature Pulse Rate 135 H 135 H 135 H Pulse Rate [Left R adial] Pulse Rate [Pulse Oximeter] Respiratory Rate 26 H 20 15 Blood Pressure 119/70 Blood Pressure [Le ft Arm] Blood Pressure [Ri ght Upper Arm] Pulse Oximetry 92 92 92 Oxygen Delivery Me thod Oxygen Flow Rate 01/12/25 20:01 01/12/25 20:06 01/12/25 20:11 Temperature Pulse Rate 135 H 134 H 134 H Pulse Rate [Left R adial] Pulse Rate [Pulse Oximeter] Respiratory Rate 24 23 23 Blood Pressure 129/76 130/90 H 121/76 Blood Pressure [Le ft Arm] Blood Pressure [Ri ght Upper Arm] Pulse Oximetry 92 92 92 Oxygen Delivery Me thod Oxygen Flow Rate 01/12/25 20:15 01/12/25 20:16 01/12/25 20:21 Temperature Pulse Rate 134 H 135 H 134 H Pulse Rate [Left R adial] Pulse Rate [Pulse Oximeter] Respiratory Rate 21 23 26 H Blood Pressure 127/82 122/82 Blood Pressure [Le ft Arm] Blood Pressure [Ri ght Upper Arm] Pulse Oximetry 93 92 92 Oxygen Delivery Me thod Oxygen Flow Rate 01/12/25 20:22 01/12/25 20:26 01/12/25 20:30 Temperature Pulse Rate 133 H 133 H 129 H Pulse Rate [Left R adial] Pulse Rate [Pulse Oximeter] Respiratory Rate 26 H 26 H 26 H Blood Pressure 130/74 Blood Pressure [Le ft Arm] Blood Pressure [Ri ght Upper Arm] Pulse Oximetry 93 92 90 Oxygen Delivery Me thod Oxygen Flow Rate 01/12/25 20:32 01/12/25 20:35 01/12/25 20:38 Temperature 99.0 F Pulse Rate 132 H 133 H 113 H Pulse Rate [Left R adial] Pulse Rate [Pulse Oximeter] Respiratory Rate 28 H 16 24 Blood Pressure 88/69 L 93/68 122/81 Blood Pressure [Le ft Arm] Blood Pressure [Ri ght Upper Arm] Pulse Oximetry 92 91 91 Oxygen Delivery Me thod Oxygen Flow Rate 01/12/25 20:42 01/12/25 20:45 01/12/25 20:46 Temperature Pulse Rate 111 H 114 H 126 H Pulse Rate [Left R adial] Pulse Rate [Pulse Oximeter] Respiratory Rate 22 22 16 Blood Pressure 106/72 108/65 Blood Pressure [Le ft Arm] Blood Pressure [Ri ght Upper Arm] Pulse Oximetry 91 91 92 Oxygen Delivery Me thod Oxygen Flow Rate 01/12/25 20:51 01/12/25 20:56 01/12/25 21:00 Temperature Pulse Rate 129 H 132 H 134 H Pulse Rate [Left R adial] Pulse Rate [Pulse Oximeter] Respiratory Rate 6 L 27 H 20 Blood Pressure 114/72 114/77 Blood Pressure [Le ft Arm] Blood Pressure [Ri ght Upper Arm] Pulse Oximetry 90 92 92 Oxygen Delivery Me thod Oxygen Flow Rate 01/12/25 21:01 01/12/25 21:06 01/12/25 21:11 Temperature Pulse Rate 134 H 136 H 134 H Pulse Rate [Left R adial] Pulse Rate [Pulse Oximeter] Respiratory Rate 10 L 19 21 Blood Pressure 92/55 L 101/73 118/77 Blood Pressure [Le ft Arm] Blood Pressure [Ri ght Upper Arm] Pulse Oximetry 91 92 93 Oxygen Delivery Me thod Oxygen Flow Rate 01/12/25 21:15 01/12/25 21:16 01/12/25 21:21 Temperature Pulse Rate 135 H 135 H 136 H Pulse Rate [Left R adial] Pulse Rate [Pulse Oximeter] Respiratory Rate 24 22 23 Blood Pressure 126/77 113/89 Blood Pressure [Le ft Arm] Blood Pressure [Ri ght Upper Arm] Pulse Oximetry 92 94 94 Oxygen Delivery Me thod Nasal Cannula Oxygen Flow Rate 2 01/12/25 21:22 01/12/25 21:26 01/12/25 21:30 Temperature 98.2 F Pulse Rate 135 H 142 H 136 H Pulse Rate [Left R adial] Pulse Rate [Pulse Oximeter] Respiratory Rate 25 H 23 22 Blood Pressure 103/73 Blood Pressure [Le ft Arm] Blood Pressure [Ri ght Upper Arm] Pulse Oximetry 94 95 94 Oxygen Delivery Me thod Nasal Cannula Oxygen Flow Rate 2 01/12/25 21:31 01/12/25 21:32 01/12/25 21:37 Temperature Pulse Rate 135 H 137 H Pulse Rate [Left R adial] Pulse Rate [Pulse Oximeter] Respiratory Rate 21 25 H 21 Blood Pressure 110/71 109/81 Blood Pressure [Le ft Arm] Blood Pressure [Ri ght Upper Arm] Pulse Oximetry 93 93 Oxygen Delivery Me thod Oxygen Flow Rate 01/12/25 21:42 01/12/25 21:45 01/12/25 21:47 Temperature Pulse Rate 144 H 124 H 66 Pulse Rate [Left R adial] Pulse Rate [Pulse Oximeter] Respiratory Rate 22 23 Blood Pressure 107/85 110/54 L Blood Pressure [Le ft Arm] Blood Pressure [Ri ght Upper Arm] Pulse Oximetry 94 93 93 Oxygen Delivery Me thod Oxygen Flow Rate 01/12/25 21:49 01/12/25 21:52 01/12/25 21:57 Temperature Pulse Rate 73 68 72 Pulse Rate [Left R adial] Pulse Rate [Pulse Oximeter] Respiratory Rate 18 22 25 H Blood Pressure 120/65 122/69 98/57 L Blood Pressure [Le ft Arm] Blood Pressure [Ri ght Upper Arm] Pulse Oximetry 94 93 93 Oxygen Delivery Me thod Oxygen Flow Rate 01/12/25 22:00 01/12/25 22:01 01/12/25 22:06 Temperature Pulse Rate 76 71 68 Pulse Rate [Left R adial] Pulse Rate [Pulse Oximeter] Respiratory Rate 21 22 27 H Blood Pressure 110/60 104/61 Blood Pressure [Le ft Arm] Blood Pressure [Ri ght Upper Arm] Pulse Oximetry 92 93 93 Oxygen Delivery Me thod Oxygen Flow Rate 01/12/25 22:12 01/12/25 22:15 01/12/25 22:17 Temperature Pulse Rate 73 68 65 Pulse Rate [Left R adial] Pulse Rate [Pulse Oximeter] Respiratory Rate 20 23 22 Blood Pressure 109/65 113/56 L Blood Pressure [Le ft Arm] Blood Pressure [Ri ght Upper Arm] Pulse Oximetry 93 94 94 Oxygen Delivery Me thod Oxygen Flow Rate 01/12/25 22:18 01/12/25 22:22 01/12/25 22:23 Temperature Pulse Rate 69 75 70 Pulse Rate [Left R adial] Pulse Rate [Pulse Oximeter] Respiratory Rate 20 24 24 Blood Pressure 120/66 Blood Pressure [Le ft Arm] Blood Pressure [Ri ght Upper Arm] Pulse Oximetry 95 96 96 Oxygen Delivery Me thod Nasal Cannula Oxygen Flow Rate 2 01/12/25 22:27 01/12/25 22:30 01/12/25 22:32 Temperature Pulse Rate 73 76 73 Pulse Rate [Left R adial] Pulse Rate [Pulse Oximeter] Respiratory Rate 23 23 26 H Blood Pressure 115/68 122/73 Blood Pressure [Le ft Arm] Blood Pressure [Ri ght Upper Arm] Pulse Oximetry 95 96 96 Oxygen Delivery Me thod Oxygen Flow Rate 01/12/25 22:36 01/12/25 22:37 01/12/25 22:42 Temperature Pulse Rate 72 69 85 Pulse Rate [Left R adial] Pulse Rate [Pulse Oximeter] Respiratory Rate 22 23 24 Blood Pressure 126/64 120/81 Blood Pressure [Le ft Arm] Blood Pressure [Ri ght Upper Arm] Pulse Oximetry 95 98 95 Oxygen Delivery Me thod Oxygen Flow Rate 01/12/25 22:45 01/12/25 22:47 01/12/25 22:48 Temperature Pulse Rate 70 76 69 Pulse Rate [Left R adial] Pulse Rate [Pulse Oximeter] Respiratory Rate 26 H 23 24 Blood Pressure 121/67 Blood Pressure [Le ft Arm] Blood Pressure [Ri ght Upper Arm] Pulse Oximetry 96 96 96 Oxygen Delivery Me thod Nasal Cannula Oxygen Flow Rate 2 01/12/25 22:52 01/12/25 22:57 01/12/25 23:10 Temperature Pulse Rate 69 Pulse Rate [Left R adial] Pulse Rate [Pulse Oximeter] Respiratory Rate 25 H Blood Pressure 127/68 125/98 H Blood Pressure [Le ft Arm] Blood Pressure [Ri ght Upper Arm] Pulse Oximetry 97 96 Oxygen Delivery Me thod Oxygen Flow Rate 01/12/25 23:30 Temperature 96.9 F L Pulse Rate Pulse Rate [Left R adial] 74 Pulse Rate [Pulse Oximeter] Respiratory Rate 20 Blood Pressure Blood Pressure [Le ft Arm] 125/68 Blood Pressure [Ri ght Upper Arm] Pulse Oximetry 93 Oxygen Delivery Me thod Room Air Oxygen Flow Rate Documenting provider has reviewed patient's vital signs: yes Hospitalist - H&P: Result Labs Labs: Short CBC 01/12/25 Range/Units 16:55 WBC 13.73 H (4.50-11.00) K/uL Hgb 13.6 (13.5-17.5) gm/dL Hct 40.8 (37.0-53.0) % Plt Count 282 (140-440) K/uL BMP 01/12/25 16:55 Sodium 129 L Potassium 3.8 Chloride 95 L Carbon Dioxide 24 BUN 20 Creatinine 1.5 Glucose 106 Calcium 9.0 Liver Function 01/12/25 Range/Units 16:55 Total Bilirubin 1.8 H (0.1-1.5) mg/dL Direct Bilirubin 0.5 (0.0-0.5) mg/dL AST 58 H (12-35) U/L ALT 35 (4-50) U/L Alkaline Phosphatase 44 (40-150) U/L Albumin 4.5 (3.3-5.0) g/dL ECG Attestation: I personally reviewed and interpreted this ECG as follows: (Electrocardiogram while he was having tachycardia shows a relatively regular rhythm without definite P waves, either a very regular AFib or other SVT with a rate in the 120s. Associated with this he has ST depression across the precordium. After his tachycardia resolves he has a relatively normal) ECG interpretation date: 01/12/[address] scan - chest: Radiologist's impression: INDICATION: FEVER, COUGH, LEG PAIN, LIKELY PNEUMONIA. TECHNIQUE: CT chest PE was acquired with 95 cc Isovue 370 IV contrast. COMPARISON: None. FINDINGS: Heart and vasculature: Contrast opacification of the pulmonary arterial tree is adequate. No sign of pulmonary embolism. Heart size is normal. Thoracic aorta and pulmonary artery are normal in caliber. Coronary artery and thoracic aorta atherosclerotic calcification. Lungs and pleura: Patchy nodular and ground-glass opacities the lungs, greatest within bases. No pleural effusion or pneumothorax. Lymph nodes/mediastinum: No mediastinal, hilar, or axillary adenopathy. Calcified left hilar lymph node. Chest wall: No masses. Upper abdomen: No acute or significant findings. Multiple calcified splenic granulomata. Bones: Chronic mild T8 compression fracture. No acute bony abnormality. IMPRESSION: 1. No pulmonary embolism. 2. Multilobar pneumonia.
[2025-01-13] VITALS (12 sets, daily range): BP systolic 130–173; BP diastolic 69–101; PULSE 62–91; RESP 18–24; TEMP 35.5–36.9; O2SAT 93–98
[2025-01-13] MEDS: AZITHROMYCIN 250 MG TABLET 500 MG PO ×2 (00:06→22:45)
[2025-01-13] MEDS: ASPIRIN 81 MG TAB.CHEW 162 MG PO (00:07)
[2025-01-13] MEDS: MAGNESIUM IV 2 GM/50 ML PIGGYBACK IVPB (00:08)
[2025-01-13] MEDS: LACTATED RINGERS 1000 ML 1,000 ML 125 ML IV (00:08)
[2025-01-13 00:55] LABS: Appearance Urine Clear (Clear); Bilirubin Urine Negative (Negative); Blood Urine Negative (Negative); Color Urine Yellow (Yellow); Glucose Urine Negative (Negative); Ketones Urine Trace (Negative); Leukocyte Esterase Urine Negative (Negative); Nitrite Urine Negative (Negative); Protein Urine Negative (Negative); Urobilinogen Urine 0.2 (0.2-1.0); pH Urine 5.5 (5.0-8.5)
[2025-01-13 01:06] LABS: Legionella pneumo Ag Urine L. pneumo Negative (Negative); S pneumo Ag Urine S. pneumo Negative (Negative)
[2025-01-13] MEDS: ACETAMINOPHEN 325 MG TABLET 650 MG PO ×4 (01:11→19:52)
[2025-01-13] MEDS: cefTRIAXone 2 GM in 0.9 % SODIUM CHLORIDE Mini-bag 100 ML IVPB (01:18)
[2025-01-13] MEDS: HYDROCORTISONE SOD SUCCINATE 50 MG/ML inj IVP ×4 (01:47→19:53)
--- NOTE | 2025-01-13 04:58 | PC.NURSE ---
Pt came to floor as CCU @ 2300. Remained afebrile all night. Tele NSR. VS unremarkable. Pain in left ankle due to chronic arthritis rated 4/10. Alert and oriented. Voiding. HR 60-70.
[2025-01-13 06:52] LABS: Lactate* 1.8 mmol/L (0.5-1.9)
[2025-01-13 07:06] LABS: Basophils Percent Auto 0.1 % (0.0-3.0); Hemoglobin* 12.5 gm/dL (13.5-17.5); Immature Granulocytes Pct Auto 0.4 %; Lymphocytes Percent Auto 1.8 % (20-44); Mean Corpuscular HGB Conc 33 gm/dL (32-36); Mean Corpuscular Hemoglobin 32 pg (26-34); Mean Corpuscular Volume 97 fL (80-100); Monocytes Percent Auto 4.1 % (0.0-11.0); Neutrophils Percent Auto 93.6 % (42.0-72.0); Platelet Count* 243 K/uL (140-440); RDW Coefficient of Variation % 13.5 % (11.5-15.5); White Blood Count* 15.68 K/uL (4.50-11.00)
[2025-01-13 07:10] LABS: Slide Review Reflex No
[2025-01-13 07:20] LABS: Albumin* 3.8 g/dL (3.3-5.0); Chloride* 102 mmol/L (96-114); Potassium* 3.9 mmol/L (3.6-5.1); Sodium* 132 mmol/L (135-149)
[2025-01-13 07:22] LABS: Blood Urea Nitrogen* 17 mg/dL (7-30); Est. Creatinine Clearance* 63.59; Estimated Glomerular Filt Rate 76 ml/min
[2025-01-13 07:23] LABS: Alanine Aminotransferase* 26 U/L (4-50); Alkaline Phosphatase* 42 U/L (40-150); Anion Gap 8 mEq/L (7-15); Aspartate Amino Transferase* 60 U/L (12-35); Bilirubin Direct* 0.3 mg/dL (0.0-0.5); Bilirubin Total* 1.2 mg/dL (0.1-1.5); Calcium* 8.4 mg/dL (8.4-10.6); Carbon Dioxide* 22 mmol/L (20-32); Glucose* 129 mg/dL (60-115); Magnesium* 2.2 mg/dL (1.5-2.6); Total Protein* 6.4 g/dL (6.0-8.3)
[2025-01-13 07:42] LABS: C Reactive Protein* 23.3 mg/dL (0.5-1.0)
[2025-01-13 07:43] LABS: Troponin I* 4.12 ng/mL (0.01-0.04)
[2025-01-13 08:15] LABS: Troponin I* 2.86 ng/mL (0.01-0.04)
[2025-01-13] MEDS: SODIUM CHLORIDE 0.9 % (FLUSH) 10 ML SYRINGE 5 ML IVF ×2 (08:43→19:56)
[2025-01-13] MEDS: FAMOTIDINE 20 MG TABLET PO ×2 (08:44→20:59)
[2025-01-13] MEDS: DULOXETINE HCL 20 MG CAPSULE DR PO ×2 (08:44→20:59)
[2025-01-13] MEDS: EZETIMIBE 10 MG TABLET PO (08:44)
[2025-01-13] MEDS: GABAPENTIN 600 MG TABLET PO ×2 (08:44→20:59)
[2025-01-13] MEDS: OMEPRAZOLE 20 MG CAPSULE DR 40 MG PO (08:44)
[2025-01-13] MEDS: ASPIRIN 81 MG TAB.CHEW PO (08:44)
--- NOTE | 2025-01-13 11:14 | RESP.RT ---
Pt started on aerobika, level 5. Did well with it. BBS diminished, clear. no cough at this time. Pt on RA SPO2 94%
[2025-01-13] MEDS: ENOXAPARIN 100 MG/ML INJ SUBCUT ×2 (11:56→22:46)
--- NOTE | 2025-01-13 15:20 | P.IMPN_ITS ---
Assessment and Plan Assessment and plan (1) Septic shock: Problem comment: Patient presented hypotensive, tachycardic, febrile, hypoxic, tachypneic with altered mental status due to pneumonia. Briefly required norepinephrine along with fluid resuscitation and steroids. Septic shock now resolved. Status: Acute (2) Community acquired pneumonia: Problem comment: Initiate treatment with ceftriaxone and azithromycin. Obtain MRSA screen. Patient has already received vancomycin for today. Patient is immunocompromised. No obvious risk factors for MRSA or Pseudomonas infection Status: Acute (3) Sepsis: Status: Acute (4) Acute hypoxemic respiratory failure: Problem comment: Due to community acquired pneumonia Status: Acute (5) Non-STEMI (non-ST elevated myocardial infarction): Problem comment: - Records indicate non-STEMI in July of 2022. Apparently had coronary angiogram at that time as well. - trop I max 4.1 01/13/2025. Initial electrocardiogram suggested inferior lateral ischemic changes with ST segment depressions. Since then these have resolved. Echocardiogram obtained today suggests inferobasilar regional wall motion abnormality. - change from venous thromboembolism prophylaxis enoxaparin dosing of 40 mg once daily to full anticoagulation dosing at 1 milligram/kilogram subcutaneously twice daily, 100 mg subcutaneously twice daily. Status: Acute (6) Metabolic encephalopathy: Problem comment: Likely due to sepsis. In great measure resolved on 01/13/2025 Status: Acute (7) Total bilirubin, elevated: Problem comment: Records indicate this may be a chronic problem. Indirect hyperbilirubinemia consistent with decreased volume state on presentation. Has since resolved Status: Acute (8) Stage 3 chronic kidney disease: Problem comment: Probably stable Status: Acute (9) Elevated troponin: Status: Acute (10) Long-term use of immunosuppressant medication: Problem comment: Hold pending clinical course Status: Acute (11) Respiratory syncytial virus (RSV) infection: Problem comment: - precautions in place and treat symptomatically Status: Acute Plan 1. Reviewed Impression, plan, recommendations as specified, including transfer to medical floor from Critical Care 2. Reviewed with patient and daughter 3. Answered his and his daughter's questions to their satisfaction 4. They are agreeable with above stated plans and recommendations Total Time Spent Total Time Spent: 50 minutes Subjective Date Seen: 01/13/25 Interval history: Admission history of present illness, 01/12/2025: ?79 year old male with rheumatoid arthritis on immunosuppression admitted to the hospital with a 1 and a half day history of profound weakness, confusion and fever. Patient is unable to give much information about the events leading to his hospitalization. He reports he was in his usual state of health on Saturday. When he awoke Saturday morning, yesterday he is feeling quite weak and really did not get out of bed yesterday. He had some chills and a little bit of cough apparently also had 1 emesis. He then apparently became confused and was not thinking straight. He was unable to walk. At some point today his insisted that he come to the emergency room. In our emergency department he was found to be hypotensive febrile tachypneic and hypoxic. He was treated with oxygen. He received fluid resuscitation and Solu-Medrol but remained hypotensive. He was placed on norepinephrine for pressure support. Eventually he was able to wean off of norepinephrine. He developed a relatively regular supraventricular tachycardia in the 120s to 140s and then return to a normal sinus rhythm in the 60s and 70s. Cultures were obtained. He was treated with vancomycin and cefepime. He had elevation in the troponin without chest pain. With his SVT he had ST depression but no other marked electrocardiogram abnormalities. When he was requiring norepinephrine decision was made to transfer him. He was unable to be transferred as requested and did clinically improve so he was admitted in [facility]. ?Past history is notable for rheumatoid arthritis for which he is treated with prednisone 5 mg daily, tofacitinib 11 mg daily and leflunomide 20 mg daily.? Hospital day 2, 01/13/2025: He is very little recollection of events that occurred and transpired yesterday. He is more awake, appropriately interactive, and talkative today. Denies chest heaviness, pressure, tightness, or pain. Denies dyspnea at rest, paroxysmal nocturnal dyspnea, orthopnea. Denies lightheadedness or orthostasis. Tolerating increased activities such as moving about the bed and in his hospital room. Denies nausea or vomiting. Denies cough. Denies palpitations or fluttering sensation and chest. States his appetite is improving today compared to yesterday. Denies abdominal pain, dyspepsia, dysphagia, odynophagia. Denies diarrhea or constipation. Denies dysuria, urgency, frequency, hematuria. Denies focal motor neurologic deficits. Exam Narrative: Exam Narrative: I examine him in his hospital room. Appears comfortable and in no acute distress. Alert and oriented to self, place, time, and current situation. Again has little recall of yesterday's events. Neck is supple. Midline trachea. No JVD or hepatojugular reflux. Lungs with fine end inspiratory rales bilaterally. No wheezing or rhonchi. Chest wall excursions are full. No CVA tenderness to thumping. Heart tones with regular rhythm, normal S1-S2, without murmur, gallop, rub. PMI not laterally displaced. Abdomen with active bowel sounds, soft, nontender. No organomegaly or masses. No rebound or guarding. Extremities with trace edema pretibially bilaterally. No obvious focal motor neurologic deficits. Ordinarily does not use a walker. Able to walk independently with use of walker here. Transfers independently. Const: Vital Signs, click to edit/add: Vital Signs - 24 hr 01/12/25 16:45 01/12/25 16:50 01/12/25 17:00 Temperature 100.6 F H Pulse Rate Pulse Rate [Left R adial] Pulse Rate [Pulse Oximeter] 81 Respiratory Rate 32 H Blood Pressure Blood Pressure [Le ft Arm] Blood Pressure [Ri ght Upper Arm] 80/46 L Pulse Oximetry 86 L 82 L 90 Oxygen Delivery Me thod Room Air Room Air Nasal Cannula Oxygen Flow Rate 2 01/12/25 17:07 01/12/25 17:15 01/12/25 17:17 Temperature Pulse Rate 70 67 66 Pulse Rate [Left R adial] Pulse Rate [Pulse Oximeter] Respiratory Rate 25 H 34 H Blood Pressure 124/45 L Blood Pressure [Le ft Arm] Blood Pressure [Ri ght Upper Arm] Pulse Oximetry 91 93 Oxygen Delivery Me thod Oxygen Flow Rate 01/12/25 17:25 01/12/25 17:30 01/12/25 17:32 Temperature Pulse Rate 70 82 Pulse Rate [Left R adial] Pulse Rate [Pulse Oximeter] Respiratory Rate 26 H 24 Blood Pressure 121/60 Blood Pressure [Le ft Arm] Blood Pressure [Ri ght Upper Arm] Pulse Oximetry 93 90 90 Oxygen Delivery Me thod Nasal Cannula Nasal Cannula Oxygen Flow Rate 2 2 01/12/25 17:33 01/12/25 17:45 01/12/25 18:00 Temperature Pulse Rate 74 81 114 H Pulse Rate [Left R adial] Pulse Rate [Pulse Oximeter] Respiratory Rate 27 H 29 H 29 H Blood Pressure Blood Pressure [Le ft Arm] Blood Pressure [Ri ght Upper Arm] Pulse Oximetry 88 89 89 Oxygen Delivery Me thod Oxygen Flow Rate 01/12/25 18:02 01/12/25 18:15 01/12/25 18:16 Temperature 99.9 F H Pulse Rate 112 H Pulse Rate [Left R adial] Pulse Rate [Pulse Oximeter] Respiratory Rate 33 H 36 H 29 H Blood Pressure 119/70 120/97 H Blood Pressure [Le ft Arm] Blood Pressure [Ri ght Upper Arm] Pulse Oximetry 84 L 81 L Oxygen Delivery Me thod Oxygen Flow Rate 01/12/25 18:30 01/12/25 18:31 01/12/25 18:32 Temperature Pulse Rate 142 H 134 H 132 H Pulse Rate [Left R adial] Pulse Rate [Pulse Oximeter] Respiratory Rate 25 H 28 H 27 H Blood Pressure 106/76 Blood Pressure [Le ft Arm] Blood Pressure [Ri ght Upper Arm] Pulse Oximetry 92 93 95 Oxygen Delivery Me thod Oxygen Flow Rate 01/12/25 19:00 01/12/25 19:01 01/12/25 19:02 Temperature Pulse Rate 132 H 135 H 134 H Pulse Rate [Left R adial] Pulse Rate [Pulse Oximeter] Respiratory Rate 33 H 28 H 16 Blood Pressure 120/67 103/64 Blood Pressure [Le ft Arm] Blood Pressure [Ri ght Upper Arm] Pulse Oximetry 90 90 90 Oxygen Delivery Me thod Oxygen Flow Rate 01/12/25 19:15 01/12/25 19:16 01/12/25 19:22 Temperature 99.3 F Pulse Rate 135 H 135 H 135 H Pulse Rate [Left R adial] Pulse Rate [Pulse Oximeter] Respiratory Rate 26 H 20 33 H Blood Pressure 93/60 68/42 L Blood Pressure [Le ft Arm] Blood Pressure [Ri ght Upper Arm] Pulse Oximetry 90 90 89 Oxygen Delivery Me thod Oxygen Flow Rate 01/12/25 19:23 01/12/25 19:24 01/12/25 19:28 Temperature Pulse Rate 136 H 133 H 135 H Pulse Rate [Left R adial] Pulse Rate [Pulse Oximeter] Respiratory Rate 22 30 H 27 H Blood Pressure 85/56 L 81/52 L Blood Pressure [Le ft Arm] Blood Pressure [Ri ght Upper Arm] Pulse Oximetry 90 90 89 Oxygen Delivery Me thod Oxygen Flow Rate 01/12/25 19:30 01/12/25 19:32 01/12/25 19:37 Temperature Pulse Rate 134 H 135 H 137 H Pulse Rate [Left R adial] Pulse Rate [Pulse Oximeter] Respiratory Rate 29 H 27 H 30 H Blood Pressure 86/57 L 136/82 Blood Pressure [Le ft Arm] Blood Pressure [Ri ght Upper Arm] Pulse Oximetry 90 91 91 Oxygen Delivery Me thod Oxygen Flow Rate 01/12/25 19:38 01/12/25 19:42 01/12/25 19:45 Temperature 99.3 F Pulse Rate 135 H 136 H Pulse Rate [Left R adial] Pulse Rate [Pulse Oximeter] Respiratory Rate 11 L 25 H Blood Pressure 129/79 Blood Pressure [Le ft Arm] Blood Pressure [Ri ght Upper Arm] Pulse Oximetry 92 91 Oxygen Delivery Me thod Oxygen Flow Rate 01/12/25 19:45 01/12/25 19:47 01/12/25 19:51 Temperature Pulse Rate 135 H 136 H 136 H Pulse Rate [Left R adial] Pulse Rate [Pulse Oximeter] Respiratory Rate 24 23 23 Blood Pressure 115/68 123/70 Blood Pressure [Le ft Arm] Blood Pressure [Ri ght Upper Arm] Pulse Oximetry 91 91 92 Oxygen Delivery Me thod Oxygen Flow Rate 01/12/25 19:56 01/12/25 19:57 01/12/25 20:00 Temperature Pulse Rate 135 H 135 H 135 H Pulse Rate [Left R adial] Pulse Rate [Pulse Oximeter] Respiratory Rate 26 H 20 15 Blood Pressure 119/70 Blood Pressure [Le ft Arm] Blood Pressure [Ri ght Upper Arm] Pulse Oximetry 92 92 92 Oxygen Delivery Me thod Oxygen Flow Rate 01/12/25 20:01 01/12/25 20:06 01/12/25 20:11 Temperature Pulse Rate 135 H 134 H 134 H Pulse Rate [Left R adial] Pulse Rate [Pulse Oximeter] Respiratory Rate 24 23 23 Blood Pressure 129/76 130/90 H 121/76 Blood Pressure [Le ft Arm] Blood Pressure [Ri ght Upper Arm] Pulse Oximetry 92 92 92 Oxygen Delivery Me thod Oxygen Flow Rate 01/12/25 20:15 01/12/25 20:16 01/12/25 20:21 Temperature Pulse Rate 134 H 135 H 134 H Pulse Rate [Left R adial] Pulse Rate [Pulse Oximeter] Respiratory Rate 21 23 26 H Blood Pressure 127/82 122/82 Blood Pressure [Le ft Arm] Blood Pressure [Ri ght Upper Arm] Pulse Oximetry 93 92 92 Oxygen Delivery Me thod Oxygen Flow Rate 01/12/25 20:22 01/12/25 20:26 01/12/25 20:30 Temperature Pulse Rate 133 H 133 H 129 H Pulse Rate [Left R adial] Pulse Rate [Pulse Oximeter] Respiratory Rate 26 H 26 H 26 H Blood Pressure 130/74 Blood Pressure [Le ft Arm] Blood Pressure [Ri ght Upper Arm] Pulse Oximetry 93 92 90 Oxygen Delivery Me thod Oxygen Flow Rate 01/12/25 20:32 01/12/25 20:35 01/12/25 20:38 Temperature 99.0 F Pulse Rate 132 H 133 H 113 H Pulse Rate [Left R adial] Pulse Rate [Pulse Oximeter] Respiratory Rate 28 H 16 24 Blood Pressure 88/69 L 93/68 122/81 Blood Pressure [Le ft Arm] Blood Pressure [Ri ght Upper Arm] Pulse Oximetry 92 91 91 Oxygen Delivery Me thod Oxygen Flow Rate 01/12/25 20:42 01/12/25 20:45 01/12/25 20:46 Temperature Pulse Rate 111 H 114 H 126 H Pulse Rate [Left R adial] Pulse Rate [Pulse Oximeter] Respiratory Rate 22 22 16 Blood Pressure 106/72 108/65 Blood Pressure [Le ft Arm] Blood Pressure [Ri ght Upper Arm] Pulse Oximetry 91 91 92 Oxygen Delivery Me thod Oxygen Flow Rate 01/12/25 20:51 01/12/25 20:56 01/12/25 21:00 Temperature Pulse Rate 129 H 132 H 134 H Pulse Rate [Left R adial] Pulse Rate [Pulse Oximeter] Respiratory Rate 6 L 27 H 20 Blood Pressure 114/72 114/77 Blood Pressure [Le ft Arm] Blood Pressure [Ri ght Upper Arm] Pulse Oximetry 90 92 92 Oxygen Delivery Me thod Oxygen Flow Rate 01/12/25 21:01 01/12/25 21:06 01/12/25 21:11 Temperature Pulse Rate 134 H 136 H 134 H Pulse Rate [Left R adial] Pulse Rate [Pulse Oximeter] Respiratory Rate 10 L 19 21 Blood Pressure 92/55 L 101/73 118/77 Blood Pressure [Le ft Arm] Blood Pressure [Ri ght Upper Arm] Pulse Oximetry 91 92 93 Oxygen Delivery Me thod Oxygen Flow Rate 01/12/25 21:15 01/12/25 21:16 01/12/25 21:21 Temperature Pulse Rate 135 H 135 H 136 H Pulse Rate [Left R adial] Pulse Rate [Pulse Oximeter] Respiratory Rate 24 22 23 Blood Pressure 126/77 113/89 Blood Pressure [Le ft Arm] Blood Pressure [Ri ght Upper Arm] Pulse Oximetry 92 94 94 Oxygen Delivery Me thod Nasal Cannula Oxygen Flow Rate 2 01/12/25 21:22 01/12/25 21:26 01/12/25 21:30 Temperature 98.2 F Pulse Rate 135 H 142 H 136 H Pulse Rate [Left R adial] Pulse Rate [Pulse Oximeter] Respiratory Rate 25 H 23 22 Blood Pressure 103/73 Blood Pressure [Le ft Arm] Blood Pressure [Ri ght Upper Arm] Pulse Oximetry 94 95 94 Oxygen Delivery Me thod Nasal Cannula Oxygen Flow Rate 2 01/12/25 21:31 01/12/25 21:32 01/12/25 21:37 Temperature Pulse Rate 135 H 137 H Pulse Rate [Left R adial] Pulse Rate [Pulse Oximeter] Respiratory Rate 21 25 H 21 Blood Pressure 110/71 109/81 Blood Pressure [Le ft Arm] Blood Pressure [Ri ght Upper Arm] Pulse Oximetry 93 93 Oxygen Delivery Me thod Oxygen Flow Rate 01/12/25 21:42 01/12/25 21:45 01/12/25 21:47 Temperature Pulse Rate 144 H 124 H 66 Pulse Rate [Left R adial] Pulse Rate [Pulse Oximeter] Respiratory Rate 22 23 Blood Pressure 107/85 110/54 L Blood Pressure [Le ft Arm] Blood Pressure [Ri ght Upper Arm] Pulse Oximetry 94 93 93 Oxygen Delivery Me thod Oxygen Flow Rate 01/12/25 21:49 01/12/25 21:52 01/12/25 21:57 Temperature Pulse Rate 73 68 72 Pulse Rate [Left R adial] Pulse Rate [Pulse Oximeter] Respiratory Rate 18 22 25 H Blood Pressure 120/65 122/69 98/57 L Blood Pressure [Le ft Arm] Blood Pressure [Ri ght Upper Arm] Pulse Oximetry 94 93 93 Oxygen Delivery Me thod Oxygen Flow Rate 01/12/25 22:00 01/12/25 22:01 01/12/25 22:06 Temperature Pulse Rate 76 71 68 Pulse Rate [Left R adial] Pulse Rate [Pulse Oximeter] Respiratory Rate 21 22 27 H Blood Pressure 110/60 104/61 Blood Pressure [Le ft Arm] Blood Pressure [Ri ght Upper Arm] Pulse Oximetry 92 93 93 Oxygen Delivery Me thod Oxygen Flow Rate 01/12/25 22:12 01/12/25 22:15 01/12/25 22:17 Temperature Pulse Rate 73 68 65 Pulse Rate [Left R adial] Pulse Rate [Pulse Oximeter] Respiratory Rate 20 23 22 Blood Pressure 109/65 113/56 L Blood Pressure [Le ft Arm] Blood Pressure [Ri ght Upper Arm] Pulse Oximetry 93 94 94 Oxygen Delivery Me thod Oxygen Flow Rate 01/12/25 22:18 01/12/25 22:22 01/12/25 22:23 Temperature Pulse Rate 69 75 70 Pulse Rate [Left R adial] Pulse Rate [Pulse Oximeter] Respiratory Rate 20 24 24 Blood Pressure 120/66 Blood Pressure [Le ft Arm] Blood Pressure [Ri ght Upper Arm] Pulse Oximetry 95 96 96 Oxygen Delivery Me thod Nasal Cannula Oxygen Flow Rate 2 01/12/25 22:27 01/12/25 22:30 01/12/25 22:32 Temperature Pulse Rate 73 76 73 Pulse Rate [Left R adial] Pulse Rate [Pulse Oximeter] Respiratory Rate 23 23 26 H Blood Pressure 115/68 122/73 Blood Pressure [Le ft Arm] Blood Pressure [Ri ght Upper Arm] Pulse Oximetry 95 96 96 Oxygen Delivery Me thod Oxygen Flow Rate 01/12/25 22:36 01/12/25 22:37 01/12/25 22:42 Temperature Pulse Rate 72 69 85 Pulse Rate [Left R adial] Pulse Rate [Pulse Oximeter] Respiratory Rate 22 23 24 Blood Pressure 126/64 120/81 Blood Pressure [Le ft Arm] Blood Pressure [Ri ght Upper Arm] Pulse Oximetry 95 98 95 Oxygen Delivery Me thod Oxygen Flow Rate 01/12/25 22:45 01/12/25 22:47 01/12/25 22:48 Temperature Pulse Rate 70 76 69 Pulse Rate [Left R adial] Pulse Rate [Pulse Oximeter] Respiratory Rate 26 H 23 24 Blood Pressure 121/67 Blood Pressure [Le ft Arm] Blood Pressure [Ri ght Upper Arm] Pulse Oximetry 96 96 96 Oxygen Delivery Me thod Nasal Cannula Oxygen Flow Rate 2 01/12/25 22:52 01/12/25 22:57 01/12/25 23:10 Temperature Pulse Rate 69 Pulse Rate [Left R adial] Pulse Rate [Pulse Oximeter] Respiratory Rate 25 H Blood Pressure 127/68 125/98 H Blood Pressure [Le ft Arm] Blood Pressure [Ri ght Upper Arm] Pulse Oximetry 97 96 Oxygen Delivery Me thod Oxygen Flow Rate 01/12/25 23:30 01/12/25 23:36 01/12/25 23:46 Temperature 96.9 F L 96.9 F L Pulse Rate Pulse Rate [Left R adial] 74 74 Pulse Rate [Pulse Oximeter] Respiratory Rate 20 20 20 Blood Pressure Blood Pressure [Le ft Arm] 125/68 125/68 Blood Pressure [Ri ght Upper Arm] Pulse Oximetry 93 93 93 Oxygen Delivery Me thod Room Air Room Air Room Air Oxygen Flow Rate 2 2 01/12/25 23:48 01/13/25 01:11 01/13/25 01:43 Temperature 96.9 F L 97.1 F L Pulse Rate 71 Pulse Rate [Left R adial] 66 Pulse Rate [Pulse Oximeter] Respiratory Rate 20 Blood Pressure Blood Pressure [Le ft Arm] 130/73 Blood Pressure [Ri ght Upper Arm] Pulse Oximetry 95 Oxygen Delivery Me thod Nasal Cannula Oxygen Flow Rate 1 01/13/25 02:55 01/13/25 04:51 01/13/25 07:25 Temperature 95.9 F L 95.9 F L Pulse Rate 65 Pulse Rate [Left R adial] 73 69 Pulse Rate [Pulse Oximeter] Respiratory Rate 20 18 Blood Pressure Blood Pressure [Le ft Arm] 146/79 H 149/69 H Blood Pressure [Ri ght Upper Arm] Pulse Oximetry 96 98 Oxygen Delivery Me thod Nasal Cannula Nasal Cannula Oxygen Flow Rate 1 1 01/13/25 07:45 01/13/25 07:45 01/13/25 07:45 Temperature 96.9 F L Pulse Rate Pulse Rate [Left R adial] 68 Pulse Rate [Pulse Oximeter] Respiratory Rate 24 24 Blood Pressure Blood Pressure [Le ft Arm] 155/76 H Blood Pressure [Ri ght Upper Arm] Pulse Oximetry 93 93 93 Oxygen Delivery Me thod Room Air Room Air Oxygen Flow Rate 01/13/25 09:59 Temperature 97.1 F L Pulse Rate Pulse Rate [Left R adial] 62 Pulse Rate [Pulse Oximeter] Respiratory Rate 20 Blood Pressure Blood Pressure [Le ft Arm] 142/75 H Blood Pressure [Ri ght Upper Arm] Pulse Oximetry 93 Oxygen Delivery Me thod Room Air Oxygen Flow Rate Labs Labs: Laboratory Results - last 24 hr 01/12/25 01/12/25 01/12/25 16:50 16:55 17:15 WBC 13.73 H RBC 4.22 L Hgb 13.6 Hct 40.8 MCV 97 MCH 32 MCHC 33 RDW Coeff of Earnest 13.5 Plt Count 282 Neut % (Auto) 83.4 H Lymph % (Auto) 9.0 L [place] % (Auto) 6.8 Eos % (Auto) 0.1 Baso % (Auto) 0.4 Neut # (Auto) 11.50 H Lymph # (Auto) 1.20 [place] # (Auto) 0.90 Eos # (Auto) 0.00 Baso # (Auto) 0.10 Abs Immat Gran (auto) 0.00 Imm/Tot Granulo (auto) 0.3 Sodium 129 L Potassium 3.8 Chloride 95 L Carbon Dioxide 24 Anion Gap 10 BUN 20 Creatinine 1.5 Estimated Creat Clear 42.39 Estimated GFR 46 Glucose 106 Lactate 2.4 H Calcium 9.0 Magnesium 1.5 Total Bilirubin 1.8 H Direct Bilirubin 0.5 AST 58 H ALT 35 Alkaline Phosphatase 44 Troponin I 2.86 H* C-Reactive Protein Total Protein 7.3 Albumin 4.5 Procalcitonin 14.40 H Urine Color Urine Appearance Urine pH Ur Specific [place] Urine Protein Urine Glucose (UA) Urine Ketones Urine Blood Urine Nitrite Urine Bilirubin Urine Urobilinogen Ur Leukocyte Esterase Urine L. pneumophilia Ag Urine Strep pneumoniae Ag SARS-CoV-2 (PCR) Negative SARS-CoV-2 Influenza Type A (PCR) Negative PCR FLU A Influenza Type B (PCR) Negative PCR FLU B RSV (PCR) POSITIVE PCR RSV A Lab Acknowledgement POC Troponin I 2.10 H 01/12/25 01/12/25 01/13/25 19:00 19:11 00:45 WBC RBC Hgb Hct MCV MCH MCHC RDW Coeff of Earnest Plt Count Neut % (Auto) Lymph % (Auto) [place] % (Auto) Eos % (Auto) Baso % (Auto) Neut # (Auto) Lymph # (Auto) [place] # (Auto) Eos # (Auto) Baso # (Auto) Abs Immat Gran (auto) Imm/Tot Granulo (auto) Sodium Potassium Chloride Carbon Dioxide Anion Gap BUN Creatinine Estimated Creat Clear Estimated GFR Glucose Lactate 2.0 H Calcium Magnesium Total Bilirubin Direct Bilirubin AST ALT Alkaline Phosphatase Troponin I 2.60 H* C-Reactive Protein Total Protein Albumin Procalcitonin Urine Color Yellow Urine Appearance Clear Urine pH 5.5 Ur Specific [place] 1.010 Urine Protein Negative Urine Glucose (UA) Negative Urine Ketones Trace A Urine Blood Negative Urine Nitrite Negative Urine Bilirubin Negative Urine Urobilinogen 0.2 Ur Leukocyte Esterase Negative Urine L. pneumophilia Ag L. pneumo Negative Urine Strep pneumoniae Ag S. pneumo Negative SARS-CoV-2 (PCR) Influenza Type A (PCR) Influenza Type B (PCR) RSV (PCR) Lab Acknowledgement POC Troponin I 1.93 H 01/13/25 01/13/25 06:42 07:32 WBC 15.68 H RBC 3.90 L Hgb 12.5 L Hct 38.0 MCV 97 MCH 32 MCHC 33 RDW Coeff of Earnest 13.5 Plt Count 243 Neut % (Auto) 93.6 H Lymph % (Auto) 1.8 L [place] % (Auto) 4.1 Eos % (Auto) 0.0 Baso % (Auto) 0.1 Neut # (Auto) 14.70 H Lymph # (Auto) 0.30 L [place] # (Auto) 0.60 Eos # (Auto) 0.00 Baso # (Auto) 0.00 Abs Immat Gran (auto) 0.10 Imm/Tot Granulo (auto) 0.4 Sodium 132 L Potassium 3.9 Chloride 102 Carbon Dioxide 22 Anion Gap 8 BUN 17 Creatinine 1.0 Estimated Creat Clear 63.59 Estimated GFR 76 Glucose 129 H Lactate 1.8 Calcium 8.4 Magnesium 2.2 Total Bilirubin 1.2 Direct Bilirubin 0.3 AST 60 H ALT 26 Alkaline Phosphatase 42 Troponin I 4.12 H* C-Reactive Protein 23.3 H Total Protein 6.4 Albumin 3.8 Procalcitonin 10.90 H Urine Color Urine Appearance Urine pH Ur Specific [place] Urine Protein Urine Glucose (UA) Urine Ketones Urine Blood Urine Nitrite Urine Bilirubin Urine Urobilinogen Ur Leukocyte Esterase Urine L. pneumophilia Ag Urine Strep pneumoniae Ag SARS-CoV-2 (PCR) Influenza Type A (PCR) Influenza Type B (PCR) RSV (PCR) Lab Acknowledgement Test Added POC Troponin I
[2025-01-13] MEDS: OXYCODONE 5 MG TABLET PO ×2 (16:58→20:59)
[2025-01-13] MEDS: ROSUVASTATIN CALCIUM 10 MG TABLET 20 MG PO (18:25)
[2025-01-13] MEDS: MELATONIN 3 MG TABLET PO (20:59)
[2025-01-14] VITALS (7 sets, daily range): BP systolic 145–161; BP diastolic 89–119; PULSE 72–89; RESP 16–20; TEMP 35.7–36.8; O2SAT 91–97
[2025-01-14] MEDS: cefTRIAXone 2 GM in 0.9 % SODIUM CHLORIDE Mini-bag 100 ML IVPB (00:51)
[2025-01-14] MEDS: SODIUM CHLORIDE 0.9 % (FLUSH) 10 ML SYRINGE 5 ML IVF ×2 (00:53→20:46)
[2025-01-14] MEDS: OXYCODONE 5 MG TABLET PO ×5 (00:54→19:37)
[2025-01-14] MEDS: ACETAMINOPHEN 325 MG TABLET 650 MG PO ×5 (00:55→19:39)
--- NOTE | 2025-01-14 05:40 | PC.NURSE ---
Shift note: Patient is pleasant, alert and oriented. Bp has been at the higher side. He struggled initially with insomnia. Melatonin given which helped somewhat. Patient used urinal in bed. No fever recorded. He continue to complained of leg pain. Tylenol and Oxycodone helped.
[2025-01-14] MEDS: HYDROCORTISONE SOD SUCCINATE 50 MG/ML inj IVP (06:03)
[2025-01-14 06:30] LABS: Basophils Percent Auto 0.2 % (0.0-3.0); Hematocrit 33.4 % (37.0-53.0); Hemoglobin* 11.3 gm/dL (13.5-17.5); Immature Granulocytes Pct Auto 0.2 %; Lymphocytes Percent Auto 1.8 % (20-44); Mean Corpuscular HGB Conc 34 gm/dL (32-36); Mean Corpuscular Hemoglobin 32 pg (26-34); Mean Corpuscular Volume 95 fL (80-100); Monocytes Percent Auto 6.2 % (0.0-11.0); Neutrophils Percent Auto 91.6 % (42.0-72.0); Platelet Count* 221 K/uL (140-440); RDW Coefficient of Variation % 13.3 % (11.5-15.5); Red Blood Count 3.51 m/uL (4.30-5.90); White Blood Count* 13.15 K/uL (4.50-11.00)
[2025-01-14 06:37] LABS: Slide Review Reflex No
[2025-01-14 06:43] LABS: Chloride* 98 mmol/L (96-114)
[2025-01-14 06:44] LABS: Potassium* 3.5 mmol/L (3.6-5.1); Sodium* 129 mmol/L (135-149)
[2025-01-14 06:46] LABS: Blood Urea Nitrogen* 17 mg/dL (7-30); Creatinine* 0.9 mg/dL (0.5-1.5); Est. Creatinine Clearance* 63.59; Estimated Glomerular Filt Rate 86 ml/min
[2025-01-14 06:47] LABS: Anion Gap 8 mEq/L (7-15); Calcium* 8.4 mg/dL (8.4-10.6); Carbon Dioxide* 23 mmol/L (20-32); Glucose* 107 mg/dL (60-115)
[2025-01-14 07:37] LABS: C Reactive Protein* 16.9 mg/dL (0.5-1.0)
[2025-01-14 08:43] LABS: Aspartate Amino Transferase* 75 U/L (12-35)
[2025-01-14] MEDS: FAMOTIDINE 20 MG TABLET PO ×2 (08:56→20:45)
[2025-01-14] MEDS: EZETIMIBE 10 MG TABLET PO (08:56)
[2025-01-14] MEDS: DULOXETINE HCL 20 MG CAPSULE DR PO ×2 (08:56→20:45)
[2025-01-14] MEDS: POTASSIUM BICARB 25 MEQ EFFERVESCENT TAB PO ×2 (08:56→11:28)
[2025-01-14] MEDS: ASPIRIN 81 MG TAB.CHEW PO (08:56)
[2025-01-14] MEDS: OMEPRAZOLE 20 MG CAPSULE DR 40 MG PO (08:57)
[2025-01-14] MEDS: GABAPENTIN 600 MG TABLET PO ×2 (08:57→20:45)
[2025-01-14 09:00] LABS: Troponin I* 3.83 ng/mL (0.01-0.04)
[2025-01-14] MEDS: METOPROLOL SUCCINATE (XL) 50 MG TAB 25 MG PO (09:03)
[2025-01-14] MEDS: LOSARTAN POTASSIUM 50 MG TABLET 25 MG PO (09:03)
[2025-01-14] MEDS: predniSONE 5 MG TABLET PO (09:03)
[2025-01-14] MEDS: ENOXAPARIN 100 MG/ML INJ SUBCUT ×2 (11:27→23:24)
--- NOTE | 2025-01-14 13:26 | PM.IMPN1 ---
Assessment and Plan Assessment and plan (1) Septic shock: Problem comment: Patient presented hypotensive, tachycardic, febrile, hypoxic, tachypneic with altered mental status due to pneumonia. Briefly required norepinephrine along with fluid resuscitation and steroids. Septic shock now resolved. Status: Acute (2) Community acquired pneumonia: Problem comment: 01/12/2025: Initiate treatment with ceftriaxone and azithromycin. Obtain MRSA screen. Patient has already received vancomycin for today. Patient is immunocompromised. No obvious risk factors for MRSA or Pseudomonas infection. 01/14/2025: Marked improvement. Continue IV antibiotics today. Status: Acute (3) Sepsis: Status: Acute (4) Acute hypoxemic respiratory failure: Problem comment: Due to community acquired pneumonia 01/14/2025: Attempting room air Status: Acute (5) Non-STEMI (non-ST elevated myocardial infarction): Problem comment: - Records indicate non-STEMI in July of 2022. Apparently had coronary angiogram at that time as well. - trop I max 4.1 01/13/2025. Initial electrocardiogram suggested inferior lateral ischemic changes with ST segment depressions. Since then these have resolved. Echocardiogram obtained today suggests inferobasilar regional wall motion abnormality. - change from venous thromboembolism prophylaxis enoxaparin dosing of 40 mg once daily to full anticoagulation dosing at 1 milligram/kilogram subcutaneously twice daily, 100 mg subcutaneously twice daily. 01/14/2025: Continue with treatment as specified. Status: Acute (6) Metabolic encephalopathy: Problem comment: Likely due to sepsis. In great measure resolved on 01/13/2025 Status: Acute (7) Total bilirubin, elevated: Problem comment: Records indicate this may be a chronic problem. Indirect hyperbilirubinemia consistent with decreased volume state on presentation. Has since resolved Status: Acute (8) Stage 3 chronic kidney disease: Problem comment: Probably stable Status: Acute (9) Elevated troponin: Status: Acute (10) Long-term use of immunosuppressant medication: Problem comment: Hold pending clinical course Status: Acute (11) Respiratory syncytial virus (RSV) infection: Problem comment: - precautions in place and treat symptomatically Status: Acute (12) Paroxysmal atrial fibrillation with rapid ventricular response: Status: Acute (13) Rheumatoid arthritis: Problem comment: 01/14/2025: Change from IV hydrocortisone back to his usual dose of prednisone 5 mg once daily. Continue to hold his other rheumatoid arthritis medications for now. Status: Acute Plan 1. I reviewed my impression and recommendations with the patient 2. Answered his questions to satisfaction 3. Patient agreeable with above stated plans and recommendations Total Time Spent Total Time Spent: 50 minutes Subjective Date Seen: 01/14/25 Interval history: Admission history of present illness, 01/12/2025: ?79 year old male with rheumatoid arthritis on immunosuppression admitted to the hospital with a 1 and a half day history of profound weakness, confusion and fever. Patient is unable to give much information about the events leading to his hospitalization. He reports he was in his usual state of health on Saturday. When he awoke Saturday morning, yesterday he is feeling quite weak and really did not get out of bed yesterday. He had some chills and a little bit of cough apparently also had 1 emesis. He then apparently became confused and was not thinking straight. He was unable to walk. At some point today his insisted that he come to the emergency room. In our emergency department he was found to be hypotensive febrile tachypneic and hypoxic. He was treated with oxygen. He received fluid resuscitation and Solu-Medrol but remained hypotensive. He was placed on norepinephrine for pressure support. Eventually he was able to wean off of norepinephrine. He developed a relatively regular supraventricular tachycardia in the 120s to 140s and then return to a normal sinus rhythm in the 60s and 70s. Cultures were obtained. He was treated with vancomycin and cefepime. He had elevation in the troponin without chest pain. With his SVT he had ST depression but no other marked electrocardiogram abnormalities. When he was requiring norepinephrine decision was made to transfer him. He was unable to be transferred as requested and did clinically improve so he was admitted in [facility]. ?Past history is notable for rheumatoid arthritis for which he is treated with prednisone 5 mg daily, tofacitinib 11 mg daily and leflunomide 20 mg daily.? Hospital day 2, 01/13/2025: He is very little recollection of events that occurred and transpired yesterday. He is more awake, appropriately interactive, and talkative today. Denies chest heaviness, pressure, tightness, or pain. Denies dyspnea at rest, paroxysmal nocturnal dyspnea, orthopnea. Denies lightheadedness or orthostasis. Tolerating increased activities such as moving about the bed and in his hospital room. Denies nausea or vomiting. Denies cough. Denies palpitations or fluttering sensation and chest. States his appetite is improving today compared to yesterday. Denies abdominal pain, dyspepsia, dysphagia, odynophagia. Denies diarrhea or constipation. Denies dysuria, urgency, frequency, hematuria. Denies focal motor neurologic deficits. Hospital day 3, 01/14/2025: Feels stronger today than yesterday tolerating increased activity and room. Appetite is continue to improve slowly. Denies orthostasis, syncope or near syncope, lightheadedness, or dizziness. Denies cough or dyspnea at rest or dyspnea with exertion or paroxysmal nocturnal dyspnea or orthopnea. Denies angina or anginal equivalent. Exam Narrative: Exam Narrative: Examined patient in his hospital room. Appears comfortable. No acute distress. Alert and oriented x4. Lungs remarkable for left lower lobe end inspiratory rales otherwise clear. No wheezing or rhonchi. Heart tones with regular rhythm, normal S1-S2. Abdomen with active bowel sounds, soft, nontender. Independent in transfer, station, gait. Skin is warm, dry, intact. No petechiae, cyanosis, rashes, or wounds. Const: Vital Signs, click to edit/add: Vital Signs - 24 hr 01/13/25 15:29 01/13/25 15:29 01/13/25 15:29 Temperature 98.4 F Pulse Rate Pulse Rate [Left R adial] 77 Respiratory Rate 20 20 Blood Pressure [Le ft Arm] 157/84 H Pulse Oximetry 94 94 94 Oxygen Delivery Me od Room Air Room Air Oxygen Flow Rate 01/13/25 15:42 01/13/25 19:00 01/13/25 22:39 Temperature 98.1 F 98.1 F Pulse Rate 86 Pulse Rate [Left R adial] 76 86 Respiratory Rate 20 20 Blood Pressure [Le ft Arm] 171/100 H 173/101 H Pulse Oximetry 95 95 Oxygen Delivery La thod Room Air Room Air Oxygen Flow Rate 01/13/25 23:00 01/13/25 23:00 01/13/25 23:00 Temperature Pulse Rate 91 Pulse Rate [Left R adial] 86 Respiratory Rate 20 Blood Pressure [Le ft Arm] Pulse Oximetry 95 Oxygen Delivery La thod Oxygen Flow Rate 01/13/25 23:00 01/14/25 01:42 01/14/25 07:00 Temperature 97.9 F Pulse Rate 76 Pulse Rate [Left R adial] 82 Respiratory Rate 20 20 Blood Pressure [Le ft Arm] 145/96 H Pulse Oximetry 95 91 Oxygen Delivery Me thod Room Air Room Air Oxygen Flow Rate 01/14/25 07:00 01/14/25 07:00 01/14/25 07:00 Temperature Pulse Rate Pulse Rate [Left R adial] Respiratory Rate 16 18 Blood Pressure [Le ft Arm] Pulse Oximetry 94 94 Oxygen Delivery Me thod Room Air Oxygen Flow Rate 0 01/14/25 07:00 01/14/25 11:00 Temperature 97.9 F 96.8 F L Pulse Rate Pulse Rate [Left R adial] 89 75 Respiratory Rate 18 20 Blood Pressure [Le ft Arm] 156/96 H 161/119 H Pulse Oximetry 91 97 Oxygen Delivery La thod Room Air Room Air Oxygen Flow Rate 1 Labs Labs: Laboratory Results - last 24 hr 01/14/25 01/14/25 06:10 08:21 WBC 13.15 H RBC 3.51 L Hgb 11.3 L Hct 33.4 L MCV 95 MCH 32 MCHC 34 RDW Coeff of Earnest 13.3 Plt Count 221 Neut % (Auto) 91.6 H Lymph % (Auto) 1.8 L Smith % (Auto) 6.2 Eos % (Auto) 0.0 Baso % (Auto) 0.2 Neut # (Auto) 12.00 H Lymph # (Auto) 0.20 L Smith # (Auto) 0.80 Eos # (Auto) 0.00 Baso # (Auto) 0.00 Abs Immat Gran (auto) 0.00 Imm/Tot Granulo (auto) 0.2 Sodium 129 L Potassium 3.5 L Chloride 98 Carbon Dioxide 23 Anion Gap 8 BUN 17 Creatinine 0.9 Estimated Creat Clear 63.59 Estimated GFR 86 Glucose 107 Calcium 8.4 Magnesium 2.0 AST 75 H Troponin I 3.83 H* C-Reactive Protein 16.9 H Lab Acknowledgement Test Added
--- NOTE | 2025-01-14 14:07 | PC.NURSE ---
PT ALERT AND ORIENTED, PLEASANT AND COOPERATIVE, RATING PAIN IN LEGS 2-5/10 BEING MANAGED WITH PRN OXY AND TYLENOL, PER PATIENT LEGS/FEET HURT MORE WHEN NOT WEARING HIS SHOES, OFFERED TO HELP GET SHOES ON AND PT DECLINED, TOLERATING REGULAR DIET NO NAUSEA OR VOMITING, AFEBRILE, TELE NSR WITH SINUS ARRHYTHMIA, FAMILY IN VISITING OFF AND ON DURING SHIFT, PT IS HOPING TO GO HOME TOMORROW.
[2025-01-14] MEDS: ROSUVASTATIN CALCIUM 10 MG TABLET 20 MG PO (18:08)
--- NOTE | 2025-01-14 22:40 | PC.NURSE ---
The pt has been pleasant and cooperative; denied chest pain and short of breath; Spo2 has been in the 90s in RA. The pt has been coughing up yellowish small sputum.? Tele has been showing Sinus arrhythmia . The pt was c/o pain to left toes- Pain managed with PRN pain medications. The pt is up to BR independently without any acute distress; minor short of breath noted with activity; recovered? quick at rest. No fever noted.?
[2025-01-14] MEDS: AZITHROMYCIN 250 MG TABLET 500 MG PO (22:51)
[2025-01-15] VITALS (24 sets, daily range): BP systolic 104–173; BP diastolic 62–113; PULSE 62–93; RESP 18–22; TEMP 36.2–38.3; O2SAT 82–96
[2025-01-15] MEDS: cefTRIAXone 2 GM in 0.9 % SODIUM CHLORIDE Mini-bag 100 ML IVPB (03:06)
[2025-01-15] MEDS: ACETAMINOPHEN 325 MG TABLET 650 MG PO ×5 (04:03→21:00)
[2025-01-15] MEDS: ALBUTEROL SULFATE 2.5 MG/3 ML VIAL.NEB NEB ×4 (04:28→21:06)
--- NOTE | 2025-01-15 04:34 | PC.NURSE ---
Shift note: At 2100, Nurse noted a bleeding spot at the right lower abdomen covered with Mepilex. Pt confirmed that it is an injection site from the previous day. Redressed and Mepilex applied. Patient Patient spiked temperature of 100.1 at 0300 with elevated BP and HR. Had difficulty keeping O2 above 87. Patient prop up in bed. Oxygen 2L set up at 0300 and Tylenol given. O2 could not get above 88% even with the 2L of Oxygen. He had increased wheezing, congestion, and breathing effort. MD informed through [place]. Verbal order of Albuterol 2.5mg Neb Q4H prescribed. Patient became stabilized after the first Neb. V/S rechecked after the treatment recorded as T 98, P 93, O2 96 on 2L and Bp 151/106. Patient endorsed feeling relieved. Doing well ambulating with SBA. Patient had adequate sleep except the episode of SOB.
[2025-01-15 06:48] LABS: Basophils Percent Auto 0.3 % (0.0-3.0); Eosinophils Percent Auto 0.1 % (0.0-7.0); Hematocrit 35.2 % (37.0-53.0); Hemoglobin* 11.8 gm/dL (13.5-17.5); Immature Granulocytes Pct Auto 0.5 %; Lymphocytes Percent Auto 4.5 % (20-44); Mean Corpuscular HGB Conc 34 gm/dL (32-36); Mean Corpuscular Hemoglobin 32 pg (26-34); Mean Corpuscular Volume 96 fL (80-100); Monocytes Percent Auto 12.4 % (0.0-11.0); Neutrophils Percent Auto 82.2 % (42.0-72.0); Platelet Count* 228 K/uL (140-440); RDW Coefficient of Variation % 13.4 % (11.5-15.5); Red Blood Count 3.68 m/uL (4.30-5.90); White Blood Count* 11.22 K/uL (4.50-11.00)
[2025-01-15 07:14] LABS: Slide Review Reflex No
[2025-01-15 07:32] LABS: Anion Gap 9 mEq/L (7-15); Blood Urea Nitrogen* 19 mg/dL (7-30); C Reactive Protein* 8.1 mg/dL (0.5-1.0); Calcium* 8.2 mg/dL (8.4-10.6); Carbon Dioxide* 24 mmol/L (20-32); Chloride* 96 mmol/L (96-114); Creatinine* 0.9 mg/dL (0.5-1.5); Est. Creatinine Clearance* 63.59; Estimated Glomerular Filt Rate 86 ml/min; Glucose* 91 mg/dL (60-115); Potassium* 3.6 mmol/L (3.6-5.1); Sodium* 129 mmol/L (135-149)
[2025-01-15] MEDS: OXYCODONE 5 MG TABLET PO ×4 (08:01→19:51)
[2025-01-15] MEDS: SODIUM CHLORIDE 0.9 % (FLUSH) 10 ML SYRINGE 5 ML IVF ×2 (08:02→21:01)
[2025-01-15] MEDS: predniSONE 5 MG TABLET PO (08:35)
[2025-01-15] MEDS: ASPIRIN 81 MG TAB.CHEW PO (08:35)
[2025-01-15] MEDS: GABAPENTIN 600 MG TABLET PO ×2 (08:35→21:00)
[2025-01-15] MEDS: METOPROLOL SUCCINATE (XL) 50 MG TAB 25 MG PO (08:35)
[2025-01-15] MEDS: OMEPRAZOLE 20 MG CAPSULE DR 40 MG PO (08:35)
[2025-01-15] MEDS: LOSARTAN POTASSIUM 50 MG TABLET 25 MG PO (08:36)
[2025-01-15] MEDS: DULOXETINE HCL 20 MG CAPSULE DR PO ×2 (08:37→21:00)
[2025-01-15] MEDS: FAMOTIDINE 20 MG TABLET PO ×2 (08:37→21:00)
[2025-01-15] MEDS: FUROSEMIDE 10 MG/ML inj 20 MG IVP ×2 (08:37→13:35)
[2025-01-15] MEDS: EZETIMIBE 10 MG TABLET PO (08:37)
[2025-01-15 08:41] LABS: NT Pro B Type NatriureticPept* 18100 pg/mL; Troponin I* 2.27 ng/mL (0.01-0.04)
--- NOTE | 2025-01-15 10:13 | PM.IMPN1 ---
Assessment and Plan Assessment and plan (1) Septic shock: Problem comment: Patient presented hypotensive, tachycardic, febrile, hypoxic, tachypneic with altered mental status due to pneumonia. Briefly required norepinephrine along with fluid resuscitation and steroids. Septic shock now resolved. Status: Acute (2) Community acquired pneumonia: Problem comment: 01/12/2025: Initiate treatment with ceftriaxone and azithromycin. Obtain MRSA screen. Patient has already received vancomycin for today. Patient is immunocompromised. No obvious risk factors for MRSA or Pseudomonas infection. 01/14/2025: Marked improvement. Continue IV antibiotics today. 01/16/2025: Will complete 5 days of oral azithromycin and IV ceftriaxone. Status: Acute (3) Sepsis: Status: Acute (4) Acute hypoxemic respiratory failure: Problem comment: Due to community acquired pneumonia 01/14/2025: Attempting room air 01/16/2025: Acute exacerbation of chronic HFpEF exacerbating respiratory failure, thus treating HF as specified below and continuing O2 supplementation as warranted Status: Acute (5) Non-STEMI (non-ST elevated myocardial infarction): Problem comment: - Records indicate non-STEMI in July of 2022. Apparently had coronary angiogram at that time as well. - trop I max 4.1 01/13/2025. Initial electrocardiogram suggested inferior lateral ischemic changes with ST segment depressions. Since then these have resolved. Echocardiogram obtained today suggests inferobasilar regional wall motion abnormality. - change from venous thromboembolism prophylaxis enoxaparin dosing of 40 mg once daily to full anticoagulation dosing at 1 milligram/kilogram subcutaneously twice daily, 100 mg subcutaneously twice daily. 01/14/2025: Continue with treatment as specified. 01/15/2025: Will decrease dose of enoxaparin to 100 mg subcutaneously daily due to increased bleeding at site of enoxaparin administration. Continue until discharge from hospital. Status: Acute (6) Metabolic encephalopathy: Problem comment: Likely due to sepsis. In great measure resolved on 01/13/2025 with resolution by 01/14/2025. Status: Acute (7) Total bilirubin, elevated: Problem comment: Records indicate this may be a chronic problem. Indirect hyperbilirubinemia consistent with decreased volume state on presentation with underlying Gilbert's disease. Has since resolved. Status: Acute (8) Stage 3 chronic kidney disease: Problem comment: Probably stable Status: Acute (9) Elevated troponin: Problem comment: - c/w NTEMI Status: Acute (10) Long-term use of immunosuppressant medication: Problem comment: Hold pending clinical course Status: Acute (11) Respiratory syncytial virus (RSV) infection: Problem comment: - precautions in place and treat symptomatically Status: Acute (12) Paroxysmal atrial fibrillation with rapid ventricular response: Status: Acute (13) Rheumatoid arthritis: Problem comment: 01/14/2025: Change from IV hydrocortisone back to his usual dose of prednisone 5 mg once daily. Continue to hold his other rheumatoid arthritis medications for now. Status: Acute (14) Moderate mitral valve regurgitation: Problem comment: - presently medically treated with history of cardiology support - will need additional outpatient cardiology consultation, including consideration for possible interventional options Status: Acute (15) Acute on chronic diastolic heart failure: Problem comment: - NYHA class III - AHA/ACC stage C - moderate mitral regurgitation, moderate left atrial enlargement - valvular cardiomyopathy - NSTEMI on 01/12/25, with inferobasilar RWMA on TTE with LV EF 50-55% - 01/15/25 NT-pro-PNP 18,000 - wt 01/12: 99.9 kg, 01/13: 100.2 kg, 01/14: 100.4 kg, 01/15: 101.9 kg - 01/15/25: sudden NYHA IV, responsive to furosemide 20 mg IV 0800 and 1400, then on 01/16/25 start 40 mg IV in AM - 01/15/25: Already on metoprolol succinate 25 mg po daily and losartan 25 mg po daily. Will increase metoprolol succinate to 50 mg po daily. Status: Acute Subjective Date Seen: 01/15/25 Interval history: Admission history of present illness, 01/12/2025: ?79 year old male with rheumatoid arthritis on immunosuppression admitted to the hospital with a 1 and a half day history of profound weakness, confusion and fever. Patient is unable to give much information about the events leading to his hospitalization. He reports he was in his usual state of health on Saturday. When he awoke Saturday morning, yesterday he is feeling quite weak and really did not get out of bed yesterday. He had some chills and a little bit of cough apparently also had 1 emesis. He then apparently became confused and was not thinking straight. He was unable to walk. At some point today his insisted that he come to the emergency room. In our emergency department he was found to be hypotensive febrile tachypneic and hypoxic. He was treated with oxygen. He received fluid resuscitation and Solu-Medrol but remained hypotensive. He was placed on norepinephrine for pressure support. Eventually he was able to wean off of norepinephrine. He developed a relatively regular supraventricular tachycardia in the 120s to 140s and then return to a normal sinus rhythm in the 60s and 70s. Cultures were obtained. He was treated with vancomycin and cefepime. He had elevation in the troponin without chest pain. With his SVT he had ST depression but no other marked electrocardiogram abnormalities. When he was requiring norepinephrine decision was made to transfer him. He was unable to be transferred as requested and did clinically improve so he was admitted in [facility]. ?Past history is notable for rheumatoid arthritis for which he is treated with prednisone 5 mg daily, tofacitinib 11 mg daily and leflunomide 20 mg daily.? Hospital day 2, 01/13/2025: He is very little recollection of events that occurred and transpired yesterday. He is more awake, appropriately interactive, and talkative today. Denies chest heaviness, pressure, tightness, or pain. Denies dyspnea at rest, paroxysmal nocturnal dyspnea, orthopnea. Denies lightheadedness or orthostasis. Tolerating increased activities such as moving about the bed and in his hospital room. Denies nausea or vomiting. Denies cough. Denies palpitations or fluttering sensation and chest. States his appetite is improving today compared to yesterday. Denies abdominal pain, dyspepsia, dysphagia, odynophagia. Denies diarrhea or constipation. Denies dysuria, urgency, frequency, hematuria. Denies focal motor neurologic deficits. Hospital day 3, 01/14/2025: Feels stronger today than yesterday tolerating increased activity and room. Appetite is continue to improve slowly. Denies orthostasis, syncope or near syncope, lightheadedness, or dizziness. Denies cough or dyspnea at rest or dyspnea with exertion or paroxysmal nocturnal dyspnea or orthopnea. Denies angina or anginal equivalent. Hospital day 4, 01/15/2025: Was doing well throughout the day yesterday. Slept well until suddenly woke up at 4:00 a.m. today with orthopnea. Has had dyspnea at rest with increased dyspnea with exertion since. Denies chest, neck, shoulder, or arm heaviness, pressure, tightness, or pain. Denies near-syncope, syncope, orthostasis. Denies nausea vomiting. Denies palpitations or chest fluttering. Denies abdominal pain or discomfort. Denies fevers, rigors, diaphoresis. Exam Narrative: Exam Narrative: Examine him in his hospital room. Appears dyspneic at rest with respiratory rate of 20-24, on oxygen at 2 liters/minute via nasal cannula to maintain oxygen saturations greater than 88%. Alert and oriented x4. Cooperative and friendly. Stridorous pharyngeal sounds. With head of bed elevated at 30? patient has jugular venous distention [facility] up the neck. Has hepatojugular reflux to the angle of the jaw. Trace edema pretibially bilaterally. End inspiratory rales left greater than right. Scattered rhonchi with upper airway sounds. No wheezing per se. Chest wall excursions are full. Chaotic heart rhythm today. Heart tones are distant with the scattered rhonchi and upper airway sounds in the background. PMI is not laterally displaced. Abdomen with active bowel sounds, soft, nontender. Cool extremities. Palpable pulses upper and lower extremities. No focal motor neurologic deficits. Electrocardiogram demonstrates atrial fibrillation without new ischemic changes. Rate controlled. Const: Vital Signs, click to edit/add: Vital Signs - 24 hr 01/14/25 11:00 01/14/25 15:30 01/14/25 15:30 Temperature 96.8 F L Pulse Rate Pulse Rate [Left R adial] 75 75 Respiratory Rate 20 20 Blood Pressure [Le ft Arm] 161/119 H Pulse Oximetry 97 97 Oxygen Delivery Me thod Room Air Oxygen Flow Rate 01/14/25 15:30 01/14/25 15:30 01/14/25 16:30 Temperature 96.3 F L Pulse Rate 83 Pulse Rate [Left R adial] 72 Respiratory Rate 20 20 Blood Pressure [Le ft Arm] 157/96 H Pulse Oximetry 95 95 Oxygen Delivery Me thod Room Air Room Air Oxygen Flow Rate 01/14/25 19:00 01/14/25 23:00 01/14/25 23:00 Temperature 96.7 F L Pulse Rate Pulse Rate [Left R adial] 77 74 Respiratory Rate 20 Blood Pressure [Le ft Arm] 160/89 H Pulse Oximetry 96 96 Oxygen Delivery Me thod Room Air Oxygen Flow Rate 01/14/25 23:00 01/14/25 23:00 01/14/25 23:00 Temperature 98.2 F Pulse Rate 72 Pulse Rate [Left R adial] 74 Respiratory Rate 20 20 Blood Pressure [Le ft Arm] 161/104 H Pulse Oximetry 96 96 Oxygen Delivery Me thod Room Air Room Air Oxygen Flow Rate 01/15/25 02:59 01/15/25 05:00 01/15/25 06:18 Temperature 100.9 F H 98 F 98 F Pulse Rate Pulse Rate [Left R adial] 91 93 Respiratory Rate 20 20 Blood Pressure [Le ft Arm] 173/113 H 151/106 H Pulse Oximetry 91 96 Oxygen Delivery Me thod Room Air Room Air Oxygen Flow Rate 2 01/15/25 07:40 01/15/25 08:01 01/15/25 08:08 Temperature 99.0 F 99.0 F Pulse Rate Pulse Rate [Left R adial] 92 Respiratory Rate 20 Blood Pressure [Le ft Arm] 153/86 H Pulse Oximetry 96 96 Oxygen Delivery Me thod Nasal Cannula Oxygen Flow Rate 2 01/15/25 08:11 01/15/25 08:12 01/15/25 08:53 Temperature Pulse Rate Pulse Rate [Left R adial] Respiratory Rate 20 20 Blood Pressure [Le ft Arm] 124/72 Pulse Oximetry 96 Oxygen Delivery Me thod Nasal Cannula Oxygen Flow Rate 2 01/15/25 09:00 01/15/25 09:07 01/15/25 09:15 Temperature Pulse Rate 90 Pulse Rate [Left R adial] Respiratory Rate Blood Pressure [Le ft Arm] 104/63 113/64 Pulse Oximetry Oxygen Delivery Me thod Oxygen Flow Rate 01/15/25 09:30 Temperature 97.6 F Pulse Rate Pulse Rate [Left R adial] Respiratory Rate Blood Pressure [Le ft Arm] 135/78 Pulse Oximetry Oxygen Delivery Me thod Oxygen Flow Rate Labs Labs: Laboratory Results - last 24 hr 01/15/25 01/15/25 06:36 08:01 WBC 11.22 H RBC 3.68 L Hgb 11.8 L Hct 35.2 L MCV 96 MCH 32 MCHC 34 RDW Coeff of Earnest 13.4 Plt Count 228 Neut % (Auto) 82.2 H Lymph % (Auto) 4.5 L Gregory % (Auto) 12.4 H Eos % (Auto) 0.1 Baso % (Auto) 0.3 Neut # (Auto) 9.20 H Lymph # (Auto) 0.50 L Gregory # (Auto) 1.40 H Eos # (Auto) 0.00 Baso # (Auto) 0.00 Abs Immat Gran (auto) 0.10 Imm/Tot Granulo (auto) 0.5 Sodium 129 L Potassium 3.6 Chloride 96 Carbon Dioxide 24 Anion Gap 9 BUN 19 Creatinine 0.9 Estimated Creat Clear 63.59 Estimated GFR 86 Glucose 91 Calcium 8.2 L Troponin I 2.27 H* C-Reactive Protein 8.1 H NT-Pro-B Natriuret Pep [id number] Lab Acknowledgement Test Added ECG Prior ECG tracings: available for review Interpretation: Atrial fibrillation, rate controlled, no new infarct or ischemic changes.
[2025-01-15] MEDS: METOPROLOL SUCCINATE (XL) 25 MG TAB PO (11:21)
[2025-01-15] MEDS: ENOXAPARIN 100 MG/ML INJ SUBCUT (13:07)
--- NOTE | 2025-01-15 14:27 | PC.SOCIAL ---
Social work consult: Attempted to meet with the pt x2. Pt was sleeping. 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 Social work to follow-up as needed.
[2025-01-15] MEDS: ROSUVASTATIN CALCIUM 10 MG TABLET 20 MG PO (17:52)
--- NOTE | 2025-01-15 18:42 | PC.NURSE ---
Pt pleasant to care for. VSS, remained afebrile throughout shift. Pain controlled with PRN medications. Pt's breathing efforts have improved, however he is still SOB with activity, lungs have coarse crackles throughout. Pt is on room air today and tolerating well. IV lasix was administered per provider orders and has been effective. PRN nebs have been effective as well. Pt has a poor appetite, only eating approximately 50% of meals.
[2025-01-15] MEDS: SENNOSIDES/DOCUSATE TABLET PO (21:00)
[2025-01-15] MEDS: MELATONIN 3 MG TABLET PO (21:00)
[2025-01-16] VITALS (7 sets, daily range): BP systolic 127–142; BP diastolic 83–87; PULSE 63–77; RESP 18–22; TEMP 36.1–36.6; O2SAT 94–96
[2025-01-16] MEDS: ENOXAPARIN 100 MG/ML INJ SUBCUT (00:27)
[2025-01-16] MEDS: AZITHROMYCIN 250 MG TABLET 500 MG PO (00:28)
[2025-01-16] MEDS: OXYCODONE 5 MG TABLET PO ×3 (00:28→09:22)
[2025-01-16] MEDS: cefTRIAXone 2 GM in 0.9 % SODIUM CHLORIDE Mini-bag 100 ML IVPB (00:31)
[2025-01-16] MEDS: ALBUTEROL SULFATE 2.5 MG/3 ML VIAL.NEB NEB ×2 (00:39→08:47)
[2025-01-16] MEDS: ACETAMINOPHEN 325 MG TABLET 650 MG PO (06:04)
[2025-01-16 06:07] LABS: Basophils Absolute Auto 0.05 K/uL (0.00-0.30); Basophils Percent Auto 0.8 % (0.0-3.0); Eosinophils Absolute Auto 0.04 K/uL (0.00-0.50); Eosinophils Percent Auto 0.6 % (0.0-7.0); Hematocrit 31.4 % (37.0-53.0); Hemoglobin* 10.4 gm/dL (13.5-17.5); Immature Granulocytes Abs Auto 0.03 K/uL (0.00-0.30); Immature Granulocytes Pct Auto 0.5 %; Lymphocytes Percent Auto 9.5 % (20-44); Mean Corpuscular HGB Conc 33 gm/dL (32-36); Mean Corpuscular Hemoglobin 32 pg (26-34); Mean Corpuscular Volume 96 fL (80-100); Monocytes Percent Auto 17.8 % (0.0-11.0); Neutrophils Absolute Auto 4.62 K/uL (1.7-7.0); Neutrophils Percent Auto 70.8 % (42.0-72.0); Platelet Count* 212 K/uL (140-440); RDW Coefficient of Variation % 13.5 % (11.5-15.5); Red Blood Count 3.28 m/uL (4.30-5.90); White Blood Count* 6.52 K/uL (4.50-11.00)
[2025-01-16 06:11] LABS: Slide Review Reflex No
--- NOTE | 2025-01-16 06:56 | PC.NURSE ---
[id number]. Patient SBA w/4ww. Showered before bed. Abdomen dressing changed x3 during shift. 1-2 Lt O2 during noc fo keep sats >90. Intermittent dry cough. PRN nebs administered and Aerobika utilized. Afebrile.
[2025-01-16] MEDS: DULOXETINE HCL 20 MG CAPSULE DR PO (08:43)
[2025-01-16] MEDS: ASPIRIN 81 MG TAB.CHEW PO (08:43)
[2025-01-16] MEDS: LOSARTAN POTASSIUM 50 MG TABLET 25 MG PO (08:43)
[2025-01-16] MEDS: GABAPENTIN 600 MG TABLET PO (08:43)
[2025-01-16] MEDS: FUROSEMIDE 10 MG/ML inj 40 MG IVP (08:43)
[2025-01-16] MEDS: EZETIMIBE 10 MG TABLET PO (08:43)
[2025-01-16] MEDS: FAMOTIDINE 20 MG TABLET PO (08:43)
[2025-01-16] MEDS: METOPROLOL SUCCINATE (XL) 50 MG TAB PO (08:44)
[2025-01-16] MEDS: OMEPRAZOLE 20 MG CAPSULE DR 40 MG PO (08:46)
[2025-01-16] MEDS: predniSONE 5 MG TABLET PO (08:46)
[2025-01-16] MEDS: SODIUM CHLORIDE 0.9 % (FLUSH) 10 ML SYRINGE 5 ML IVF (08:47)
[2025-01-16 08:54] LABS: Chloride* 94 mmol/L (96-114); Sodium* 131 mmol/L (135-149)
[2025-01-16 08:55] LABS: Potassium* 3.4 mmol/L (3.6-5.1)
[2025-01-16 08:58] LABS: Anion Gap 7 mEq/L (7-15); Blood Urea Nitrogen* 20 mg/dL (7-30); Carbon Dioxide* 30 mmol/L (20-32); Est. Creatinine Clearance* 63.59; Estimated Glomerular Filt Rate 76 ml/min; Glucose* 91 mg/dL (60-115)
[2025-01-16] MEDS: POTASSIUM CHLORIDE 10 MEQ CAPSULE ER 40 MEQ PO (10:30)
--- NOTE | 2025-01-16 14:41 | PC.NURSE ---
Pt doing very well today. VSS. Afebrile. Tolerating room air. Chronic pain controlled with PRN medications. Pt having adequate output. Denies SOB while ambulating in [place] with PT/OT. Bleeding to RLQ r/t prior lovenox shot was covered with dermabond, abd pad and tape; no drainage this afternoon. Pt belongings and discharge information signed. Education was reviewed, no questions or concerns at this time. Pt discharged home via at 1400.
--- NOTE | 2025-01-16 15:46 | P.DS_ITS ---
DS: Providers Provider Date Seen: 01/16/25 Date of admission: 01/12/25 23:09 Primary care physician: Not a Local Provider Admitting Clinician: Scot Dumont MD Consults: 01/12/25 23:12 Consult to Occupational Therapy [CONS] Routine Comment: Reason(s) for OT Consult:: Evaluate and Treat Any Restrictions?:: No Restrictions Consult to Physical Therapy [CONS] Routine Comment: Reason(s) for PT Consult:: Evaluate and Treat Any Restrictions?:: No Restrictions Consult to Respiratory Therapy [CONS] Routine Comment: Reason(s) for RT Consult:: Consult Attending Physician on discharge: Suresh Camarillo MD Date of Discharge: 01/16/25 DS: Diagnosis Discharge Diagnosis (1) Sepsis: Status: Acute (2) Septic shock: Status: Acute Problem details: Patient presented hypotensive, tachycardic, febrile, hypoxic, tachypneic with altered mental status due to pneumonia. Briefly required norepinephrine along with fluid resuscitation and steroids. Septic shock now resolved. (3) Respiratory syncytial virus (RSV) infection: Status: Acute Problem details: - precautions in place and treat symptomatically (4) Community acquired pneumonia: Status: Acute Problem details: 01/12/2025: Initiate treatment with ceftriaxone and azithromycin. Obtain MRSA screen. Patient has already received vancomycin for today. Patient is immunocompromised. No obvious risk factors for MRSA or Pseudomonas infection. 01/14/2025: Marked improvement. Continue IV antibiotics today. 01/16/2025: Will complete 5 days of oral azithromycin and IV ceftriaxone. (5) Elevated troponin: Status: Acute Problem details: - c/w NTEMI (6) Non-STEMI (non-ST elevated myocardial infarction): Status: Acute Problem details: - Records indicate non-STEMI in July of 2022. Apparently had coronary angiogram at that time as well. - trop I max 4.1 01/13/2025. Initial electrocardiogram suggested inferior lateral ischemic changes with ST segment depressions. Since then these have resolved. Echocardiogram obtained today suggests inferobasilar regional wall motion abnormality. - change from venous thromboembolism prophylaxis enoxaparin dosing of 40 mg once daily to full anticoagulation dosing at 1 milligram/kilogram subcutaneously twice daily, 100 mg subcutaneously twice daily. 01/14/2025: Continue with treatment as specified. 01/15/2025: Will decrease dose of enoxaparin to 100 mg subcutaneously daily due to increased bleeding at site of enoxaparin administration. Continue until discharge from hospital. (7) Acute hypoxemic respiratory failure: Status: Acute Problem details: Due to community acquired pneumonia 01/14/2025: Attempting room air 01/15/2025: Acute exacerbation of chronic HFpEF exacerbating respiratory failure, thus treating HF as specified below and continuing O2 supplementation as warranted (8) Acute on chronic diastolic heart failure: Status: Acute Problem details: - NYHA class III - AHA/ACC stage C - moderate mitral regurgitation, moderate left atrial enlargement - valvular cardiomyopathy - NSTEMI on 01/12/25, with inferobasilar RWMA on TTE with LV EF 50-55% - 01/15/25 NT-pro-PNP 18,000 - wt 01/12: 99.9 kg, 01/13: 100.2 kg, 01/14: 100.4 kg, 01/15: 101.9 kg, 01/16: 99.7 kg - 01/15/25: sudden NYHA IV, responsive to furosemide 20 mg IV 0800 and 1400, then on 01/16/25 start 40 mg IV in AM - 01/15/25: Already on metoprolol succinate 25 mg po daily and losartan 25 mg po daily. Will increase metoprolol succinate to 50 mg po daily. (9) Moderate mitral valve regurgitation: Status: Acute Problem details: - presently medically treated with history of cardiology support - will need additional outpatient cardiology consultation, including consideration for possible interventional options (10) Paroxysmal atrial fibrillation with rapid ventricular response: Status: Acute (11) Total bilirubin, elevated: Status: Acute Problem details: Records indicate this may be a chronic problem. Indirect hyperbilirubinemia consistent with decreased volume state on presentation with underlying Gilbert's disease. Has since resolved. (12) Metabolic encephalopathy: Status: Acute Problem details: Likely due to sepsis. In great measure resolved on 01/13/2025 with resolution by 01/14/2025. (13) Stage 3 chronic kidney disease: Status: Acute Problem details: Probably stable (14) Rheumatoid arthritis: Status: Acute Problem details: 01/14/2025: Change from IV hydrocortisone back to his usual dose of prednisone 5 mg once daily. Continue to hold his other rheumatoid arthritis medications for now. (15) Long-term use of immunosuppressant medication: Status: Acute Problem details: Hold pending clinical course DS: Summary Hospital Course Hospital Course: Admission history of present illness, 01/12/2025: ?79 year old male with rheumatoid arthritis on immunosuppression admitted to the hospital with a 1 and a half day history of profound weakness, confusion and fever. Patient is unable to give much information about the events leading to his hospitalization. He reports he was in his usual state of health on Saturday. When he awoke Saturday morning, yesterday he is feeling quite weak and really did not get out of bed yesterday. He had some chills and a little bit of cough apparently also had 1 emesis. He then apparently became confused and was not thinking straight. He was unable to walk. At some point today his insisted that he come to the emergency room. In our emergency department he was found to be hypotensive febrile tachypneic and hypoxic. He was treated with oxygen. He received fluid resuscitation and Solu-Medrol but remained hypotensive. He was placed on norepinephrine for pressure support. Eventually he was able to wean off of norepinephrine. He developed a relatively regular supraventricular tachycardia in the 120s to 140s and then return to a normal sinus rhythm in the 60s and 70s. Cultures were obtained. He was treated with vancomycin and cefepime. He had elevation in the troponin without chest pain. With his SVT he had ST depression but no other marked electrocardiogram abnormalities. When he was requiring norepinephrine decision was made to transfer him. He was unable to be transferred as requested and did clinically improve so he was ad mitted in [facility]. ?Past history is notable for rheumatoid arthritis for which he is treated with prednisone 5 mg daily, tofacitinib 11 mg daily and leflunomide 20 mg daily.? Hospital day 2, 01/13/2025: He is very little recollection of events that occurred and transpired yesterday. He is more awake, appropriately interactive, and talkative today. Denies chest heaviness, pressure, tightness, or pain. Denies dyspnea at rest, paroxysmal nocturnal dyspnea, orthopnea. Denies lightheadedness or orthostasis. Tolerating increased activities such as moving about the bed and in his h ospital room. Denies nausea or vomiting. Denies cough. Denies palpitations or fluttering sensation and chest. States his appetite is improving today compared to yesterday. Denies abdominal pain, dyspepsia, dysphagia, odynophagia. Denies diarrhea or constipation. Denies dysuria, urgency, frequency, hematuria. Denies focal motor neurologic deficits. Hospital day 3, 01/14/2025: Feels stronger today than yesterday tolerating increased activity and room. Appetite is continue to improve slowly. Denies orthostasis, syncope or near syncope, lightheadedness, or dizziness. Denies cough or dyspnea at rest or dyspnea with exertion or paroxysmal nocturnal dyspnea or orthopnea. Denies angina or anginal equivalent. Hospital day 4, 01/15/2025: Was doing well throughout the day yesterday. Slept well until suddenly woke up at 4:00 a.m. today with orthopnea. Has had dyspnea at rest with increased dyspnea with exertion since. Denies chest, neck, shoulder, or arm heaviness, pressure, tightness, or pain. Denies near-syncope, syncope, orthostasis. Denies nausea vomiting. Denies palpitations or chest fluttering. Denies abdominal pain or discomfort. Denies fevers, rigors, diaphoresis. Hospital day 5, 01/16/2025: Much improved today status post diuresis of 2 kilos. Will continue on oral diuretics for a short period of time. Brain atretic peptide level yesterday was 18,000. This is certainly suggestive of a chronic nature of his heart failure. This is worrisome for his mitral valve disease being worse than what were currently seen on echocardiogram. Will benefit from outpatient cardiology assessment and recommendations. Status at Discharge Functional status at discharge: uses cane/walker Overall status at discharge: patient is progressing back to baseline Time Spent with Patient Time attestation: Total time spent providing and/or coordinating discharge services: Time spent: Greater than 30 minutes Exam Narrative: Exam Narrative: Examine him in his hospital room. Appears dyspneic at rest with respiratory rate of 20-24, on oxygen at 2 liters/minute via nasal cannula to maintain oxygen saturations greater than 88%. Alert and oriented x4. Cooperative and friendly. Stridorous pharyngeal sounds. With head of bed elevated at 30? patient has no jugular venous distention. Still has hepatojugular reflux usp up the neck. Trace edema pretibially bilaterally. End inspiratory rales left greater than right. Scattered rhonchi with upper airway sounds. No wheezing per se. Chest wall excursions are full. Chaotic heart rhythm today. Heart tones are distant with the scattered rhonchi and upper airway sounds in the background. PMI is not laterally displaced. Abdomen with active bowel sounds, soft, nontender. Cool extremities. Palpable pulses upper and lower extremities. No focal motor neurologic deficits. Const: Vital Signs, click to edit/add: Vital Signs - 24 hr 01/15/25 19:47 01/15/25 22:00 01/15/25 22:05 Temperature 97.4 F L Pulse Rate Pulse Rate [Left R adial] 62 Respiratory Rate 20 Blood Pressure [Le ft Arm] 147/79 H Pulse Oximetry 95 82 L 93 Oxygen Delivery Me thod Room Air Room Air Nasal Cannula Oxygen Flow Rate 2.0 01/15/25 23:00 01/15/25 23:00 01/15/25 23:00 Temperature Pulse Rate 69 Pulse Rate [Left R adial] Respiratory Rate 22 Blood Pressure [Le ft Arm] Pulse Oximetry 95 95 Oxygen Delivery Me thod Nasal Cannula Oxygen Flow Rate 2.0 01/16/25 00:30 01/16/25 02:54 01/16/25 05:58 Temperature 97.5 F L 97.9 F Pulse Rate Pulse Rate [Left R adial] 63 67 Respiratory Rate 22 20 Blood Pressure [Le ft Arm] 142/83 H Pulse Oximetry 95 96 Oxygen Delivery Me thod Nasal Cannula Nasal Cannula Oxygen Flow Rate 2.0 2.0 01/16/25 07:00 01/16/25 07:00 01/16/25 07:52 Temperature Pulse Rate 77 Pulse Rate [Left R adial] 66 Respiratory Rate 18 Blood Pressure [Le ft Arm] Pulse Oximetry 94 Oxygen Delivery Me thod Oxygen Flow Rate 01/16/25 07:52 01/16/25 07:55 01/16/25 10:57 Temperature 97.0 F L 97.0 F L Pulse Rate Pulse Rate [Left R adial] 66 71 Respiratory Rate 18 18 18 Blood Pressure [Le ft Arm] 139/87 127/85 Pulse Oximetry 95 95 94 Oxygen Delivery Me thod Room Air Room Air Room Air Oxygen Flow Rate DS: Data Data Completed and Pending Labs on day of discharge: Labs from last 24 hours 01/16/25 05:56 WBC 6.52 RBC 3.28 L Hgb 10.4 L Hct 31.4 L MCV 96 MCH 32 MCHC 33 RDW Coeff of Earnest 13.5 Plt Count 212 Neut % (Auto) 70.8 Lymph % (Auto) 9.5 L Pacific % (Auto) 17.8 H Eos % (Auto) 0.6 Baso % (Auto) 0.8 Neut # (Auto) 4.62 Lymph # (Auto) 0.60 L Pacific # (Auto) 1.20 H Eos # (Auto) 0.04 Baso # (Auto) 0.05 Abs Immat Gran (auto) 0.03 Imm/Tot Granulo (auto) 0.5 Sodium 131 L Potassium 3.4 L Chloride 94 L Carbon Dioxide 30 Anion Gap 7 BUN 20 Creatinine 1.0 Estimated Creat Clear 63.59 Estimated GFR 76 Glucose 91 Calcium 8.0 L Preliminary micro results at discharge 01/12/25 16:55 Blood Culture - Preliminary Blood NO GROWTH AFTER 72 HOURS 01/12/25 17:52 Blood Culture - Preliminary Blood NO GROWTH AFTER 72 HOURS Imaging Chest x-ray: Attestation: I have reviewed the pertinent imaging results. Radiologist's impression: IMPRESSION: 1. Mild patchy airspace opacities are present in the left midlung zone and both lung bases. These findings can be seen with atelectasis and/or pneumonia. CT scan - chest: Attestation: I have reviewed the pertinent imaging results. Radiologist's impression: IMPRESSION: 1. No pulmonary embolism. 2. Multilobar pneumonia. Venous US: Radiologist's impression: IMPRESSION: No DVT in the left lower extremity. Left popliteal fossa cyst. Echo: Radiologist's impression: 1. Normal LV chamber size, mild LV hypertrophy, normal LV function with EF 50- 55% 2. Basal inferior regional wall motion abnormality 3. Moderate left atrial enlargement 4. Aortic sclerosis without stenosis or regurgitation. 5. Mitral sclerosis with moderate regurgitation and no stenosis Discharge Plan Discharge Disposition: Home, Self-Care Date of Admission: 01/12/25 23:09 Attending Provider on Discharge: Suresh Camarillo Primary Care Provider: Provider,Not a Local Condition: Improved Anticipated Discharge Date/Time: 01/16/25 14:00 Discharge Medications: New metoprolol succinate 50 mg Tablet Extended Release 24 Hr 50 mg PO DAILY 30 Days Qty: 30 0RF aspirin [Children's Aspirin] 81 mg Tablet,Chewable 81 mg PO DAILY 30 Days Qty: 30 12RF furosemide 20 mg tablet 20 mg PO DAILY Qty: 30 3RF Continued gabapentin 600 mg tablet 600 - 1,200 mg PO Q12H Rx Instructions: 600 IN AM, 1200 IN PM famotidine 20 mg tablet 20 mg PO BID ezetimibe 10 mg tablet 10 mg PO DAILY duloxetine 20 mg capsule,delayed release(DR/EC) 20 mg PO BID leflunomide 20 mg tablet 20 mg PO DAILY lidocaine-prilocaine 2.5-2.5 % cream 1 applic topical TID PRN losartan 25 mg tablet 25 mg PO DAILY prednisone 5 mg tablet 5 mg PO DAILY pantoprazole 40 mg tablet,delayed release (DR/EC) 40 mg PO DAILY rosuvastatin 20 mg tablet 20 mg PO QPM ramelteon 8 mg tablet 8 mg PO QPM Xeljanz XR 11 mg tablet extended release 24 hr 11 mg PO DAILY Discontinued metoprolol succinate 50 mg tablet extended release 24 hr 25 mg PO DAILY prednisone 20 mg tablet 20 mg PO DAILY Rx Instructions: days 11-21 of therapy Discharge Orders: Discharge Order (Routine); Ordered 01/16/25 Ordered By: Suresh Camarillo Patient Education: Metoprolol (By mouth), Furosemide (By mouth), Aspirin (By mouth), Heart Attack (DC), Heart Healthy Diet (DC), Community Acquired Pneumonia (DC), RSV (Respiratory Syncytial Virus) Infection (DC), RSV (Respiratory Syncytial Virus) Vaccine for Adults (GEN) Additional Instructions: 1. Follow-up with primary behavioral health care manager in 5-10 days - consider outpatient PT and OT assess and treatment s/p NSTEMI, community acquired pneumonia, RSV infection; 2. heart healthy diet; 3. Keep follow-up appointments with all of your doctors Activity Level: Activity as Tolerated, Use Cane and Use Walker Discharge Diet: Heart Healthy (2 gm sodium, low fat) Follow Up Appointments: Lois Cox [Other] rubi lópez [Other] - 01/27/25 9:45 am (Primary was not available. ) Provider,Not a Local [Primary Care Provider] - Forms: [employer] Info Instructions
== END 2025-01-16 14:00 | disposition home or self-care (01) | DRG 871 ==
LOC: ED 19:42 → MEDSURG 22:58
PROVIDERS: Internal Medicine; Admitting Provider Family Medicine; Emergency Provider Family Medicine; Visit Provider Family Medicine
DX: A41.9 Sepsis, unspecified organism (principal); G93.41 Metabolic encephalopathy; J12.1 Respiratory syncytial virus pneumonia; R65.21 Severe sepsis with septic shock; J96.01 Acute respiratory failure with hypoxia; I21.4 Non-ST elevation (NSTEMI) myocardial infarction; I50.33 Acute on chronic diastolic (congestive) heart failure; I13.0 Hypertensive heart and chronic kidney disease with heart failure and stage 1 through stage 4 chronic kidney disease, or unspecified chronic kidney disease; D84.821 Immunodeficiency due to drugs; Z79.622 Long term (current) use of Janus kinase inhibitor; Z79.52 Long term (current) use of systemic steroids; Z79.61 Long term (current) use of immunomodulator; E80.6 Other disorders of bilirubin metabolism; N18.30 Chronic kidney disease, stage 3 unspecified; M06.9 Rheumatoid arthritis, unspecified; G62.9 Polyneuropathy, unspecified; G89.29 Other chronic pain; I48.0 Paroxysmal atrial fibrillation; I34.0 Nonrheumatic mitral (valve) insufficiency; E78.5 Hyperlipidemia, unspecified; I25.2 Old myocardial infarction
CPT/HCPCS: 36415; 71045; 71275; 80048; 80076; 81001; 81003; 83605; 83735; 83880; 84145; 84450; 84484; 85025; 86140; 87040; 87081; 87449; 87631; 87899; 93005; 93306; 93971; 94640; 94664; 94761; 97110; 97112; 97116; 97162; 97165; 97530; 97535; 99285; 99291; 99292; A9270; J0692; J0696; J1650; J1720; J1938; J3372; J3475; J7030; J7120; J7512; Q9967